=== PATIENT | female | born 1935 | race Caucasian/White ===

== ENCOUNTER → 2018-06-04 08:04 | Outpatient (CLI) | payer MEDICARE, OTHER, SELFPAY ==
[2018-06-04 10:36] LABS: BUN Creatinine Ratio 12.5 (6-22); Blood Urea Nitrogen 10 mg/dL (7-17); Calcium 9.7 mg/dL (8.4-10.2); Carbon Dioxide 28 mmol/L (22-32); Chloride 103 mmol/L (98-107); Cholesterol 156 mg/dL (140-199); Estimated Glomerular Filt Rate > 60.0 mL/min (>60); Glucose 115 mg/dL (80-110); HDL Cholesterol 34 mg/dL (40-60); HEMOLYSIS < 15 (0-50); LDL Cholesterol Calculated 72 mg/dL (<100); Potassium 4.3 mmol/L (3.4-5.1); Sodium 143 mmol/L (137-145); Triglycerides 248 mg/dL (35-150)
[2018-06-04 11:59] LABS: Hemoglobin A1C% w Est Avg Glu 6.4 % (4.0-6.0)
== END ==
PROVIDERS: PCP Physician Assistant; Visit Provider Physician Assistant
DX: E11.9 Type 2 diabetes mellitus without complications (principal); E78.1 Pure hyperglyceridemia
CPT/HCPCS: 36415; 80048; 80061; 83036

== ENCOUNTER → 2018-07-03 12:57 | Outpatient (CLI) | payer MEDICARE, OTHER, SELFPAY ==
--- NOTE | 2018-07-03 | DI.MG.S_ITS ---
BILATERAL DIGITAL SCREENING MAMMOGRAM 3D/2D WITH CAD POST LUMPECTOMY: 07/03/2018 CLINICAL: Routine screening. Personal history of left breast cancer. Comparison is made to exams dated: 06/26/2017 mammogram, 06/06/2016 mammogram - [facility], and 04/14/2015 mammogram - [facility]. There are scattered fibroglandular elements in both breasts. Current study was also evaluated with a Computer Aided Detection (CAD) system. There are post operative findings in the right breast. No significant masses, calcifications, or other findings are seen in either breast. There has been no significant interval change. IMPRESSION: NEGATIVE There is no mammographic evidence of malignancy. A 1 year screening mammogram is recommended. This exam was interpreted at Station ID: [id number]. NOTE: For mammograms, a report in lay terms will be sent to the patient. Approximately 15% of breast malignancies will not be visualized mammographically. In the management of a palpable breast mass, a negative mammogram must not discourage biopsy of a clinically suspicious lesion. Electronically Signed By: Estefani fischer/sheree:07/03/2018 16:01:22 letter sent: Normal Exam ACR BI-RADS Category 1: Negative [id number]
== END ==
PROVIDERS: PCP Physician Assistant; Visit Provider Physician Assistant
DX: Z12.31 Encounter for screening mammogram for malignant neoplasm of breast (principal); Z85.3 Personal history of malignant neoplasm of breast
CPT/HCPCS: 77063; 77067

== ENCOUNTER → 2018-07-11 08:26 | Outpatient (CLI) | payer MEDICARE, OTHER, SELFPAY ==
--- NOTE | 2018-07-11 | DI.US.S_ITS ---
PROCEDURE: US CHEST COMPARISON: None. INDICATIONS: LOCALIZED SWELLING UNDER RIBCAGE FINDINGS: No mass or abnormal fluid collection seen, no evidence of herniation in the area of current clinical concern. IMPRESSION: Normal chest ultrasound. Source of reported lump not identified. Dictated by: José Bui M.D. on 07/11/2018 at 11:11 Approved by: José Bui M.D. on 07/11/2018 at 11:12
== END ==
PROVIDERS: Family Provider Physician Assistant; PCP Physician Assistant; Visit Provider Physician Assistant
DX: R22.2 Localized swelling, mass and lump, trunk (principal)
CPT/HCPCS: 76604

== ENCOUNTER → 2018-09-05 10:37 | Outpatient (CLI) | payer MEDICARE, OTHER, SELFPAY ==
[2018-09-05 11:03] LABS: Add Manual Diff / Slide Review NO; Basophils Percent Auto 1.1 % (0-2); Eosinophils Percent Auto 4.7 % (2-4); Hematocrit 39.4 % (36-46); Hemoglobin 13.3 g/dL (12.0-16.0); Lymphocytes Percent Auto 25.8 % (25-40); Mean Corpuscular HGB Conc 33.7 % (30-36); Mean Corpuscular Hemoglobin 29.3 PG (26-34); Mean Corpuscular Volume 87.1 fL (80-100); Monocytes Percent Auto 6.8 % (3-14); Neutrophils Absolute Auto 4200 /uL (3000-5900); Neutrophils Percent Auto 61.6 % (50-75); Platelet Count 237 X10^3/uL (150-400); Red Blood Cell Count 4.53 X10^6/uL (4.0-5.2); Red Cell Distribution Width 13.9 % (11.6-14.8); White Blood Cell Count 6.8 X10^3/uL (4.5-11.0)
[2018-09-05 11:11] LABS: Alanine Aminotransferase 20 IU/L (9-52); Albumin Globulin Ratio 1.4 (1.0-2.8); Alkaline Phosphatase 62 U/L (38-126); Aspartate Aminotransferase 20 IU/L (14-36); BUN Creatinine Ratio 16.3 (6-22); Bilirubin Total 0.9 mg/dL (0.2-1.3); Blood Urea Nitrogen 13 mg/dL (7-17); Calcium 9.4 mg/dL (8.4-10.2); Carbon Dioxide 28 mmol/L (22-32); Chloride 105 mmol/L (98-107); Estimated Glomerular Filt Rate > 60.0 mL/min (>60); Globulin 2.9 g/dL (1.7-4.1); Glucose 155 mg/dL (80-110); HEMOLYSIS < 15 (0-50); Potassium 3.8 mmol/L (3.4-5.1); Sodium 142 mmol/L (137-145); Total Protein 6.9 g/dL (6.3-8.2)
[2018-09-11 11:50] VITALS: BP 140/82; PULSE 89; RESP 18; TEMP 36.3; O2SAT 96
== END ==
PROVIDERS: Family Provider Physician Assistant; PCP Physician Assistant; Visit Provider Nurse Practitioner Gerontology
DX: C50.919 Malignant neoplasm of unspecified site of unspecified female breast (principal)
CPT/HCPCS: 36415; 80053; 85025

== ENCOUNTER 2018-09-11 11:09 | Oncology outpatient (ONC) | payer MEDICARE, OTHER, SELFPAY ==
--- NOTE | 2018-09-11 12:40 | P.PNONC_ITS ---
PN -Subjective Interval history: The patient is a 82 year old Female who is being seen in the clinic 09/11/2018 . She carries a diagnosis of left-sided T2 NX breast cancer in clinical remission/surveillance since her original diagnosis was made on June 2015. Patient was started on letrozole in March 2016 subsequently held and June 2017 secondary to a 20 pound weight gain. Patient presents today for 6 month clinical evaluation. She did resume letrozole however stopped again in July after 2 months stating I felt miserable I hurt all over. I dont want to go back on it. Otherwise the pt has no new complaints on exam today. She just had a visit with Dr Rascon radiation oncology. No recent illnesses or infections. No new pain, no new lumps or bumps. Appetite is excellent. Weight is stable. PCP has changed her blood pressure medications a couple of times. Patient reports she was having a cough, this went away after her provider changed her blood pressure medicine, she is now taking Losartan 50mg BID with blood pressures running in the 130's-140's. Blood sugars in the upper 100's. Most recent mammogram was July 03, 2018 which was without evidence of malignancy, recommendation is continue with annual bilateral routine screening. Past Medical History The patient's past medical history is significant for: 1. Left-sided invasive breast cancer, Diagnosis: 06/23/2015. Ultrasound core needle biopsy left breast. Pathology confirming an invasive ductal carcinoma. Immunostains showing a [place] histological grade 2 out of 3 without LVI. Immunostains of the invasive component were ER positive at greater than 90%, MT negative at less than 1%, and HER2 equivocal at 2+ but negative on FISH, with a ratio of 1.28 and a copy number of 3.43. Ki67 20%. Associated high-grade DCIS identified. 07/19/2015. Partial mastectomy with sentinel node procedure. Primary lesion measuring 24 x 15 x 10 mm. DCIS measuring 7 mm. Margins otherwise clear for both invasive and DCIS disease after reexcision. One reported sentinel lymph node was identified, but on pathology, no lymphatic tissue was seen. Patient has not had further axillary surgery. Prognosis: 08/30/2015. Oncotype DX assay reporting a 10-year risk of distant recurrence in the node negative setting at 13% after 5 years of tamoxifen. Oncotype ordered through Surgery. Treatment: 09/20/2015-01/11/2016. CMF chemotherapy. 17 weeks administered discontinued after she developed a DVT in the left lower extremity. April 2016. Consolidation radiation therapy. 04/06/2016 - present. Letrozole. 02/29/2016. Baseline echocardiogram reporting an EF of 60-65%. Mild mitral regurgitation. Patient has her annual mammograms in May of each year. Surveillance: 06/26/2017. Bilateral diagnostic mammogram. Postsurgical scar noted in the left breast 3 o'clock posterior depth. No mammographic evidence for malignancy. 06/26/2017. CT abdomen and pelvis. Indication epigastric pain. No evidence of metastatic disease seen. No source of pain as identified. 2. Left lower extremity DVT, while on CMF chemotherapy, involving popliteal vein identified on ultrasound dated January 19, 2016. Patient remains on Rivaroxaban 20 mg daily. 3. Hypothyroidism. Last TSH in February 2016 normal. 4. GERD. 5. Osteopenia. Bone density scan on 02/29/2016 reporting a T score at AP spine of -1.5 left and right neck of the femur -2.1 and -2.0 respectively. 6) Fat necrosis left breast upper inner quadrant measuring 18 x 17 x 20 millimeters characterized on ultrasound dated 06/06/2016. Recent ultrasound dated 12/25/2016 reporting fat necrosis measuring 14 x 17 x 17 mm. Home Medications and Allergies Home Medications Medication Instructions Recorded Confirmed Type levothyroxine 50 mcg PO QAM #90 tab 09/17/17 Rx Glucose: Home Monitor / #1 12/09/17 Rx Glucose: Test Strips str TID #100 12/09/17 Rx Lancet: Device u #100 12/09/17 Rx losartan 50 mg PO BID 09/11/18 09/11/18 History omeprazole 40 mg PO/SL BID 09/11/18 History Allergies Allergy/AdvReac Type Severity Reaction Status Date / Time amoxicillin [AMOXICILLIN] Allergy Intermediate RASH Unverified 02/26/18 12:33 ciprofloxacin [CIPROFLOXACIN] Allergy Intermediate RASH Unverified 02/26/18 12: 33 codeine [CODEINE] Allergy Intermediate RASH Unverified 02/26/18 12:33 vancomycin [VANCOMYCIN] Allergy Intermediate RASH Unverified 02/26/18 12:33 Exam - Constitutional positive no acute distress - Routine HEENT Exam Eye: Present: conjunctivae pink. Absent: conjunctival icterus, scleral injection ENT: Present: mucous membranes moist, oropharynx clear - Routine Neck Exam Present: supple. Absent: lymphadenopathy - Routine Chest/Breast/Axilla Exam Chest wall exam standard: Absent: tenderness, mass Breast: Absent: tenderness, mass, erythema Axillae: Absent: lymphadenopathy, mass, tenderness - Routine Respiratory Exam Present: Clear to auscultation bilaterally. Absent: rales, rhonchi, wheezes - Routine Cardiovascular Exam Present: RRR, S1, S2. Absent: murmur, gallop, rubs, JVD - Routine Abdominal Exam Present: soft, normoactive bowel sounds. Absent: tenderness, distended, organomegaly, mass - Routine Extremities Exam Absent: edema, calf tenderness - Routine Skin Exam Present: intact, normal turgor. Absent: petechiae, rash - Routine Neurological Exam Present: alert, oriented X3 - Routine Psychiatric Exam Present: normal affect Results - Imaging Additional studies: Procedures Excision of axillary lymph node (07/19/15) Subtotal mastectomy (07/19/15) Assessment and Plan (1) Breast cancer Current visit: No Status: Ching Cordova is a pleasant 82-year-old female with a diagnosis of left-sided T2 NX breast cancer in clinical remission/surveillance since original diagnosis was made June 2015. She began letrozole March 2016 held briefly in June 2017 due to weight gain. Held approximately 2 months. Was back on letrozole however elected to discontinue again in July of 2018 reporting once again worsening arthralgia. She understands there is a relative risk reduction in recurrence possibly reduced from 26% to 13% with continued letrozole use. Patient states at this point she has no desire to resume. No signs or symptoms of disease recurrence on exam today. CBC, CMP unremarkable. She will be due to have her routine annual screening bilateral mammogram in June of 2019. (2) Hypertension Current visit: Yes Status: Acute Stable , now taking losartan 50mg BID, managed by PCP Ledy Coreas PA-C (3) Type 2 diabetes mellitus Current visit: Yes Status: Acute stable with blood sugars below 200. Most recent Hgb A1C May 2018 6.4. Not on meds, diet controlled
== END 2018-09-25 13:20 ==
PROVIDERS: Family Provider Physician Assistant; PCP Physician Assistant; Visit Provider Nurse Practitioner Gerontology
DX: C50.912 Malignant neoplasm of unspecified site of left female breast (principal); Z17.0 Estrogen receptor positive status [ER+]; I10 Essential (primary) hypertension; Z86.718 Personal history of other venous thrombosis and embolism; E11.9 Type 2 diabetes mellitus without complications; M85.852 Other specified disorders of bone density and structure, left thigh; M85.851 Other specified disorders of bone density and structure, right thigh; Z79.01 Long term (current) use of anticoagulants
CPT/HCPCS: 99214

== ENCOUNTER 2018-10-23 10:30 | Outpatient (RCR) | payer MEDICARE, OTHER, SELFPAY ==
--- NOTE | 2018-10-01 16:02 | PT.OIE ---
Current Diagnoses Bilateral primary osteoarthritis of hip (09/29/18) Trochanteric bursitis, left hip (09/29/18) Presence of left artificial knee joint (09/29/18) Past Surgical History Status post hysterectomy Status post laparoscopic cholecystectomy Provider Visit Care Team Role Provider Type Ledy Coreas PA-C Family Provider Advanced Dry Kiln Worker Primary Care Provider Specialty: Internal Medicine Address: [address] [place] [address], [address] Email: Marcelina Jones MD Attending Provider Physician Specialty: Orthopedic Surgery Address: [address] [place] [address], [id number] Email: [email or web address] Physical Therapy Initial Evaluation PT-OP-A Visit Information Start: 09/29/18 07:37 Freq: Status: Active Protocol: Document 09/29/18 08:15 AMB (Rec: 10/01/18 15:14 AMB [email or web address]) Out-Patient Physical Therapy Visit Information Visit Information Visit Type Initial Evaluation Visit Start Time 08:15 Visit Stop Time 09:00 Total Visit Minutes 45 Visit Number 1 Evaluation Information Evaluation Date 09/30/18 PT-OP-B Current Condition Start: 09/29/18 07:37 Freq: Status: Active Protocol: Document 09/29/18 08:15 AMB (Rec: 10/01/18 15:14 AMB [email or web address]) Current Condition History of Current Condition Onset Date late August Current Complaints L hip pain History of Current Condition The patient woke up 2 weeks ago with left hip pain. She states it has been about the same since that time. It comes and goes. Worse with standing and walking but the low back also hurts with that. She also notes pain getting into the car. 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 She has continued swelling in her leg since then despite compression socks, very swollen early in the morning. 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 PT-OP-C Subjective Start: 09/29/18 07:37 Freq: Status: Active Protocol: Document 09/29/18 08:15 AMB (Rec: 10/01/18 15:14 AMB [email or web address]) Patient Questionnaires Lower Extremity Functional Scale LEFS Score 47 LEFS Impairment 20 to 39% Impaired (Score 48- 62) OP-PT Pain Assessment Pain Assessment Grid Paper Pain Assessment Grid Completed Yes Location Left Hip Pain Location Details lateral hip over greater trochanter Intensity 6 Scale Used Numeric (1 - 10) PT-OP-F Manual Assessment Start: 09/29/18 07:37 Freq: Status: Active Protocol: Document 09/29/18 08:15 AMB (Rec: 10/01/18 15:54 AMB [email or web address]) Manual Assessments Soft Tissue Assessment Soft Tissue Mobility Assessment Tendnerness over IT band on the left, mild tenderness to piriformis. Tendnerness over low back, stiffness with lumbar PAs. PT-OP-G Mobility & Gait Start: 09/29/18 07:37 Freq: Status: Active Protocol: Document 09/29/18 08:15 AMB (Rec: 10/01/18 15:52 AMB [email or web address]) OP Gait Assessment Comments Gait Comments Pt ambulates with WBOS and mild hip external rotation, limited trunk rotation PT-OP-J Posture/Palpation/Skin Start: 09/29/18 07:37 Freq: Status: Active Protocol: Document 09/29/18 08:15 AMB (Rec: 10/01/18 15:52 AMB [email or web address]) Posture Evaluation Comments Posture Comments Pt stands with flat lumbar spine, sits with increased thoracic kyphosis Palpation Assessment Location One Palpation Location hip Palpation Details L lateral hip over greater trochanter has increased tenderness in comparison to the right. IT band is tender L>R. Mild piriformis tenderness bilaterally. PT-OP-M Strength Start: 09/29/18 07:37 Freq: Status: Active Protocol: Document 09/29/18 08:15 AMB (Rec: 10/01/18 15:52 AMB [email or web address]) Hip Strength Hip Manual Muscle Testing Right Flexion (L2) 4 Good Extension (S1) 4 Good Abduction 4 Good Adduction 4 Good Left Flexion (L2) 4- Good- Extension (S1) 4 Good Abduction 4- Good- Adduction 4- Good- Knee Strength Knee Manual Muscle Testing Right Flexion (S2) 4 Good Extension (L3) 4 Good Left Flexion (S2) 4+ Good+ Extension (L3) 4+ Good+ PT-OP-R Modalities Start: 09/29/18 07:37 Freq: Status: Active Protocol: Document 09/29/18 08:15 AMB (Rec: 10/01/18 15:53 AMB [email or web address]) Electric Stimulation Electric Stimulation Interferential Current (IFC) Body Location L hip Duration (Minutes) 10 PT-OP-T Assessment and Plan Start: 09/29/18 07:37 Freq: Status: Active Protocol: Document 09/29/18 08:15 AMB (Rec: 10/01/18 15:52 AMB [email or web address]) Physical Therapy Assessment Rehab Potential Rehabilitation Potential Good Evaluation Complexity Number of Personal Factors/Comorbidities 3 or More Number of Body Systems Impaired 3 Clinical Presentation at Evaluation Evolving Impairments Impairments Gait Pain Soft Tissue Mobility Strength Goals Three Impairment Pain Mine Geologist Goal (LTG) The patient will perform a car transfer without pain. LTG Duration 8 weeks Two Impairment Gait Short Term Goal (STG) The patient will ambulate for 5 minutes over smooth surfaces without LOB or antalgic gait pattern. STG Duration 4 weeks Mcc Goal (LTG) The patient will ascend and descend 4 stairs with 1 railing with step over step gait without hip pain. LTG Duration 8 weeks One Impairment Strength Short Term Goal (STG) The patient will be independent with a HEP for lower extremity and core strengthening. STG Duration 4 weeks Mine Geologist Goal (LTG) The patient will improve her lower extremity strength so that she can perform a mini squat with good body mechanics to take foot out of the oven without hip pain. LTG Duration 8 weeks Assessment Summary Assessment The patient attends PT with recent onset L hip pain with chronic knee pain s/p TKA that has been making her compensate. She will need to progress her hip and core stabilization. She will benefit from body mechanics training to reduce the amount of compensation she has developed from her knee pain. Physical Therapy Plan Frequency and Duration Frequency of Treatment 2x/Week Duration of Treatment 8 weeks Plan of Care Start Date 09/30/18 Plan of Care End Date 11/25/18 Therapeutic Interventions Therapeutic Interventions Aquatic Therapy Gait Training Home Exercise Program Manual Therapy Neuromuscular Re-education Self-Care/Home Management Soft Tissue Mobilization Therapeutic Activities Therapeutic Exercises Modalities Cold Pack/Ice Massage Electric Stimulation Hot Packs Ultrasound Next Visit Focus/Plan Next Note Type Treatment Note Next Visit Plan Progress core/ hip stabilization, body mechanics training
--- NOTE | 2018-10-01 16:03 | PT.OPPOC ---
Current Diagnoses Bilateral primary osteoarthritis of hip (09/29/18) Trochanteric bursitis, left hip (09/29/18) Presence of left artificial knee joint (09/29/18) Provider Visit Care Team Role Provider Type Ledy Coreas PA-C Family Provider Advanced Personal Clothing Laundry Aide Primary Care Provider Specialty: Internal Medicine Address: [address] [place] [address], [address] Email: Marcelina Jones MD Attending Provider Physician Specialty: Orthopedic Surgery Address: [address] [place] [address], [address] Email: [email or web address] Plan Of Care PT-OP-T Assessment and Plan Start: 09/29/18 07:37 Freq: Status: Active Protocol: Document 09/29/18 08:15 AMB (Rec: 10/01/18 15:52 AMB [email or web address]) Physical Therapy Assessment Rehab Potential Rehabilitation Potential Good Evaluation Complexity Number of Personal Factors/Comorbidities 3 or More Number of Body Systems Impaired 3 Clinical Presentation at Evaluation Evolving Impairments Impairments Gait Pain Soft Tissue Mobility Strength Goals Three Impairment Pain Jail Goal (LTG) The patient will perform a car transfer without pain. LTG Duration 8 weeks Two Impairment Gait Short Term Goal (STG) The patient will ambulate for 5 minutes over smooth surfaces without LOB or antalgic gait pattern. STG Duration 4 weeks Candle Molder Goal (LTG) The patient will ascend and descend 4 stairs with 1 railing with step over step gait without hip pain. LTG Duration 8 weeks One Impairment Strength Short Term Goal (STG) The patient will be independent with a HEP for lower extremity and core strengthening. STG Duration 4 weeks Jail Goal (LTG) The patient will improve her lower extremity strength so that she can perform a mini squat with good body mechanics to take foot out of the oven without hip pain. LTG Duration 8 weeks Assessment Summary Assessment The patient attends PT with recent onset L hip pain with chronic knee pain s/p TKA that has been making her compensate. She will need to progress her hip and core stabilization. She will benefit from body mechanics training to reduce the amount of compensation she has developed from her knee pain. Physical Therapy Plan Frequency and Duration Frequency of Treatment 2x/Week Duration of Treatment 8 weeks Plan of Care Start Date 09/30/18 Plan of Care End Date 11/25/18 Therapeutic Interventions Therapeutic Interventions Aquatic Therapy Gait Training Home Exercise Program Manual Therapy Neuromuscular Re-education Self-Care/Home Management Soft Tissue Mobilization Therapeutic Activities Therapeutic Exercises Modalities Cold Pack/Ice Massage Electric Stimulation Hot Packs Ultrasound Next Visit Focus/Plan Next Note Type Treatment Note Next Visit Plan Progress core/ hip stabilization, body mechanics training Plan of Care Dates Plan of Care Start Date 09/30/18 Plan of Care End Date 11/25/18 Please Sign and Return: I have reviewed this Plan of Care and certify that the skilled therapy services above are required to meet the patient?s needs. Physician Signature Date Printed Name and Credentials Clinical Instructor Signature Printed Name and Credentials
--- NOTE | 2018-10-02 09:11 | PT.OTN ---
Current Diagnoses Bilateral primary osteoarthritis of hip (10/02/18) Trochanteric bursitis, left hip (10/02/18) Presence of left artificial knee joint (10/02/18) Physical Therapy Treatment Note PT-OP-A Visit Information Start: 09/29/18 07:37 Freq: Status: Active Protocol: Document 10/02/18 08:15 AMB (Rec: 10/02/18 08:22 AMB [id number]) Out-Patient Physical Therapy Visit Information Visit Information Visit Type Treatment Note Visit Start Time 08:15 Visit Stop Time 09:00 Total Visit Minutes 45 Visit Number 2 Evaluation Information Evaluation Date 09/30/18 PT-OP-B Current Condition Start: 09/29/18 07:37 Freq: Status: Active Protocol: Document 09/29/18 08:15 AMB (Rec: 10/01/18 15:14 AMB [email or web address]) Current Condition History of Current Condition Onset Date late August Current Complaints L hip pain History of Current Condition The patient woke up 2 weeks ago with left hip pain. She states it has been about the same since that time. It comes and goes. Worse with standing and walking but the low back also hurts with that. She also notes pain getting into the car. 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 She has continued swelling in her leg since then despite compression socks, very swollen early in the morning. 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 PT-OP-C Subjective Start: 09/29/18 07:37 Freq: Status: Active Protocol: Document 10/02/18 08:15 AMB (Rec: 10/02/18 08:22 AMB [id number]) OP-PT Subjective Patient Comments Patient Comments Pt reports lifting a case of water bottles into her car yesterday and that it made her back sore. PT-OP-F Manual Assessment Start: 09/29/18 07:37 Freq: Status: Active Protocol: Document 09/29/18 08:15 AMB (Rec: 10/01/18 15:54 AMB [email or web address]) Manual Assessments Soft Tissue Assessment Soft Tissue Mobility Assessment Tendnerness over IT band on the left, mild tenderness to piriformis. Tendnerness over low back, stiffness with lumbar PAs. PT-OP-G Mobility & Gait Start: 09/29/18 07:37 Freq: Status: Active Protocol: Document 09/29/18 08:15 AMB (Rec: 10/01/18 15:52 AMB [email or web address]) OP Gait Assessment Comments Gait Comments Pt ambulates with WBOS and mild hip external rotation, limited trunk rotation PT-OP-J Posture/Palpation/Skin Start: 09/29/18 07:37 Freq: Status: Active Protocol: Document 09/29/18 08:15 AMB (Rec: 10/01/18 15:52 AMB [email or web address]) Posture Evaluation Comments Posture Comments Pt stands with flat lumbar spine, sits with increased thoracic kyphosis Palpation Assessment Location One Palpation Location hip Palpation Details L lateral hip over greater trochanter has increased tenderness in comparison to the right. IT band is tender L>R. Mild piriformis tenderness bilaterally. PT-OP-M Strength Start: 09/29/18 07:37 Freq: Status: Active Protocol: Document 09/29/18 08:15 AMB (Rec: 10/01/18 15:52 AMB [email or web address]) Hip Strength Hip Manual Muscle Testing Right Flexion (L2) 4 Good Extension (S1) 4 Good Abduction 4 Good Adduction 4 Good Left Flexion (L2) 4- Good- Extension (S1) 4 Good Abduction 4- Good- Adduction 4- Good- Knee Strength Knee Manual Muscle Testing Right Flexion (S2) 4 Good Extension (L3) 4 Good Left Flexion (S2) 4+ Good+ Extension (L3) 4+ Good+ PT-OP-Q Treatments Start: 09/29/18 07:37 Freq: Status: Active Protocol: Document 10/02/18 08:15 AMB (Rec: 10/02/18 08:23 AMB [id number]) Cardio Equipment Recumbent Elliptical (Biodex) Duration (Minutes) 5 Resistance 4 Gym Equipment Shuttle Recovery Bilateral Squats Resistance 50 Shuttle Recovery Platform Stable Reps/Time 3x10 Therapeutic Exercises Supine Exercises 3 Supine Exercise Name hamstring stretch Reps/Minutes 30x2 2 Supine Exercise Name IT band stretch Reps/Minutes 30x2 1 Supine Exercise Name Bridges Reps/Minutes 2x10 Sidelying Exercises 2 Sidelying Exercise Name clamshell Side left Reps/Minutes 2x10 1 Sidelying Exercise Name hip abduction Side left Reps/Minutes 2x5 Comments vc for form Manual Therapy Treatment Soft Tissue Mobilization 1 Body Location Left lateral leg Mobilization Type Myofascial Release Rolling Body Position Sidelying PT-OP-R Modalities Start: 09/29/18 07:37 Freq: Status: Active Protocol: Document 09/29/18 08:15 AMB (Rec: 10/01/18 15:53 AMB [email or web address]) Electric Stimulation Electric Stimulation Interferential Current (IFC) Body Location L hip Duration (Minutes) 10 PT-OP-T Assessment and Plan Start: 09/29/18 07:37 Freq: Status: Active Protocol: Document 10/02/18 08:15 AMB (Rec: 10/02/18 09:11 AMB [id number]) Physical Therapy Assessment Assessment Summary Assessment Pt tolerated exercise well, although low back will likely continue to limit her. Physical Therapy Plan Next Visit Focus/Plan Next Note Type Treatment Note Next Visit Plan Progress core stabilization
--- NOTE | 2018-10-06 10:26 | PT.OTN ---
Current Diagnoses Bilateral primary osteoarthritis of hip (10/06/18) Trochanteric bursitis, left hip (10/06/18) Presence of left artificial knee joint (10/06/18) Physical Therapy Treatment Note PT-OP-A Visit Information Start: 09/29/18 07:37 Freq: Status: Active Protocol: Document 10/06/18 08:15 AMB (Rec: 10/06/18 08:22 AMB [id number]) Out-Patient Physical Therapy Visit Information Visit Information Visit Type Treatment Note Visit Start Time 08:15 Visit Stop Time 09:00 Total Visit Minutes 45 Visit Number 3 Evaluation Information Evaluation Date 09/30/18 PT-OP-B Current Condition Start: 09/29/18 07:37 Freq: Status: Active Protocol: Document 09/29/18 08:15 AMB (Rec: 10/01/18 15:14 AMB [email or web address]) Current Condition History of Current Condition Onset Date late August Current Complaints L hip pain History of Current Condition The patient woke up 2 weeks ago with left hip pain. She states it has been about the same since that time. It comes and goes. Worse with standing and walking but the low back also hurts with that. She also notes pain getting into the car. 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 She has continued swelling in her leg since then despite compression socks, very swollen early in the morning. 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 PT-OP-C Subjective Start: 09/29/18 07:37 Freq: Status: Active Protocol: Document 10/06/18 08:15 AMB (Rec: 10/06/18 08:22 AMB [id number]) OP-PT Subjective Patient Comments Patient Comments Pt is noticing both back and leg soreness today, notices that the pain seems to be there all the time. PT-OP-F Manual Assessment Start: 09/29/18 07:37 Freq: Status: Active Protocol: Document 09/29/18 08:15 AMB (Rec: 11/14/18 15:54 AMB [email or web address]) Manual Assessments Soft Tissue Assessment Soft Tissue Mobility Assessment Tendnerness over IT band on the left, mild tenderness to piriformis. Tendnerness over low back, stiffness with lumbar PAs. PT-OP-G Mobility & Gait Start: 09/29/18 07:37 Freq: Status: Active Protocol: Document 09/29/18 08:15 AMB (Rec: 10/01/18 15:52 AMB [email or web address]) OP Gait Assessment Comments Gait Comments Pt ambulates with WBOS and mild hip external rotation, limited trunk rotation PT-OP-J Posture/Palpation/Skin Start: 09/29/18 07:37 Freq: Status: Active Protocol: Document 09/29/18 08:15 AMB (Rec: 10/01/18 15:52 AMB [email or web address]) Posture Evaluation Comments Posture Comments Pt stands with flat lumbar spine, sits with increased thoracic kyphosis Palpation Assessment Location One Palpation Location hip Palpation Details L lateral hip over greater trochanter has increased tenderness in comparison to the right. IT band is tender L>R. Mild piriformis tenderness bilaterally. PT-OP-M Strength Start: 09/29/18 07:37 Freq: Status: Active Protocol: Document 09/29/18 08:15 AMB (Rec: 10/01/18 15:52 AMB [email or web address]) Hip Strength Hip Manual Muscle Testing Right Flexion (L2) 4 Good Extension (S1) 4 Good Abduction 4 Good Adduction 4 Good Left Flexion (L2) 4- Good- Extension (S1) 4 Good Abduction 4- Good- Adduction 4- Good- Knee Strength Knee Manual Muscle Testing Right Flexion (S2) 4 Good Extension (L3) 4 Good Left Flexion (S2) 4+ Good+ Extension (L3) 4+ Good+ PT-OP-Q Treatments Start: 09/29/18 07:37 Freq: Status: Active Protocol: Document 10/06/18 08:15 AMB (Rec: 10/06/18 08:29 AMB [id number]) Cardio Equipment Recumbent Stepper (Sci-Fit) Duration (Minutes) 5 Resistance 3.5 Gym Equipment Shuttle Recovery Bilateral Squats Resistance 67 Shuttle Recovery Platform Stable Reps/Time 3x10 Therapeutic Exercises Supine Exercises 3 Supine Exercise Name hamstring stretch Reps/Minutes 30x2 1 Supine Exercise Name Bridges Reps/Minutes 2x10 Sidelying Exercises 2 Sidelying Exercise Name clamshell Side left Reps/Minutes 2x10 Manual Therapy Treatment Soft Tissue Mobilization 1 Body Location Left lateral leg/ low back Mobilization Type Myofascial Release Rolling Body Position Sidelying PT-OP-R Modalities Start: 09/29/18 07:37 Freq: Status: Active Protocol: Document 09/29/18 08:15 AMB (Rec: 10/01/18 15:53 AMB [email or web address]) Electric Stimulation Electric Stimulation Interferential Current (IFC) Body Location L hip Duration (Minutes) 10 PT-OP-T Assessment and Plan Start: 09/29/18 07:37 Freq: Status: Active Protocol: Document 10/06/18 08:52 AMB (Rec: 10/06/18 08:55 AMB [id number]) Physical Therapy Assessment Assessment Summary Assessment Continued low back pain, stiffness in knee also limits HEP. Physical Therapy Plan Next Visit Focus/Plan Next Note Type Treatment Note Next Visit Plan Progress core stabilization
--- NOTE | 2018-10-20 15:58 | PT.OTN ---
Current Diagnoses Bilateral primary osteoarthritis of hip (10/20/18) Trochanteric bursitis, left hip (10/20/18) Presence of left artificial knee joint (10/20/18) Physical Therapy Treatment Note PT-OP-A Visit Information Start: 09/29/18 07:37 Freq: Status: Active Protocol: Document 10/20/18 10:30 AMB (Rec: 10/20/18 10:37 AMB [id number]) Out-Patient Physical Therapy Visit Information Visit Information Visit Type Treatment Note Visit Start Time 10:30 Visit Stop Time 11:15 Total Visit Minutes 45 Visit Number 4 Evaluation Information Evaluation Date 09/30/18 PT-OP-B Current Condition Start: 09/29/18 07:37 Freq: Status: Active Protocol: Document 09/29/18 08:15 AMB (Rec: 10/01/18 15:14 AMB [email or web address]) Current Condition History of Current Condition Onset Date late August Current Complaints L hip pain History of Current Condition The patient woke up 2 weeks ago with left hip pain. She states it has been about the same since that time. It comes and goes. Worse with standing and walking but the low back also hurts with that. She also notes pain getting into the car. 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 She has continued swelling in her leg since then despite compression socks, very swollen early in the morning. 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 PT-OP-C Subjective Start: 09/29/18 07:37 Freq: Status: Active Protocol: Document 10/20/18 10:30 AMB (Rec: 10/20/18 10:37 AMB [id number]) OP-PT Subjective Patient Comments Patient Comments Pt reports increased soreness after last appointment. REports supine exercises make her hip sore when she tries them at home. PT-OP-F Manual Assessment Start: 09/29/18 07:37 Freq: Status: Active Protocol: Document 09/29/18 08:15 AMB (Rec: 10/01/18 15:54 AMB [email or web address]) Manual Assessments Soft Tissue Assessment Soft Tissue Mobility Assessment Tendnerness over IT band on the left, mild tenderness to piriformis. Tendnerness over low back, stiffness with lumbar PAs. PT-OP-G Mobility & Gait Start: 09/29/18 07:37 Freq: Status: Active Protocol: Document 09/29/18 08:15 AMB (Rec: 10/01/18 15:52 AMB [email or web address]) OP Gait Assessment Comments Gait Comments Pt ambulates with WBOS and mild hip external rotation, limited trunk rotation PT-OP-J Posture/Palpation/Skin Start: 09/29/18 07:37 Freq: Status: Active Protocol: Document 09/29/18 08:15 AMB (Rec: 10/01/18 15:52 AMB [email or web address]) Posture Evaluation Comments Posture Comments Pt stands with flat lumbar spine, sits with increased thoracic kyphosis Palpation Assessment Location One Palpation Location hip Palpation Details L lateral hip over greater trochanter has increased tenderness in comparison to the right. IT band is tender L>R. Mild piriformis tenderness bilaterally. PT-OP-M Strength Start: 09/29/18 07:37 Freq: Status: Active Protocol: Document 09/29/18 08:15 AMB (Rec: 10/01/18 15:52 AMB [email or web address]) Hip Strength Hip Manual Muscle Testing Right Flexion (L2) 4 Good Extension (S1) 4 Good Abduction 4 Good Adduction 4 Good Left Flexion (L2) 4- Good- Extension (S1) 4 Good Abduction 4- Good- Adduction 4- Good- Knee Strength Knee Manual Muscle Testing Right Flexion (S2) 4 Good Extension (L3) 4 Good Left Flexion (S2) 4+ Good+ Extension (L3) 4+ Good+ PT-OP-Q Treatments Start: 09/29/18 07:37 Freq: Status: Active Protocol: Document 10/20/18 10:30 AMB (Rec: 10/20/18 15:58 AMB [email or web address]) Cardio Equipment Recumbent Elliptical (Biodfishfishme) Duration (Minutes) 5 Resistance 4 Therapeutic Exercises Standing Exercises 4 Standing Exercise Name heel raise Reps/Minutes 2x10 Comments double leg 3 Standing Exercise Name mini squat Reps/Minutes 2x10 2 Standing Exercise Name mini lunge Reps/Minutes 2x10 1 Standing Exercise Name standing hip abd Resistance yellow t band Reps/Minutes 3x10 PT-OP-R Modalities Start: 09/29/18 07:37 Freq: Status: Active Protocol: Document 09/29/18 08:15 AMB (Rec: 10/01/18 15:53 AMB [email or web address]) Electric Stimulation Electric Stimulation Interferential Current (IFC) Body Location L hip Duration (Minutes) 10 PT-OP-T Assessment and Plan Start: 09/29/18 07:37 Freq: Status: Active Protocol: Document 10/20/18 10:30 AMB (Rec: 10/20/18 15:58 AMB [email or web address]) Physical Therapy Assessment Goals Three Impairment Pain Snf Goal (LTG) The patient will perform a car transfer without pain. LTG Duration 8 weeks Two Impairment Gait Short Term Goal (STG) The patient will ambulate for 5 minutes over smooth surfaces without LOB or antalgic gait pattern. STG Duration 4 weeks Snf Goal (LTG) The patient will ascend and descend 4 stairs with 1 railing with step over step gait without hip pain. LTG Duration 8 weeks One Impairment Strength Short Term Goal (STG) The patient will be independent with a HEP for lower extremity and core strengthening. STG Duration 4 weeks Snf Goal (LTG) The patient will improve her lower extremity strength so that she can perform a mini squat with good body mechanics to take foot out of the oven without hip pain. LTG Duration 8 weeks Assessment Summary Assessment better back and hip pain today . Tolerates standing better than supine exercises. Physical Therapy Plan Next Visit Focus/Plan Next Note Type Treatment Note Next Visit Plan Progress core stabilization in standing
--- NOTE | 2018-10-23 11:43 | PT.OTN ---
Current Diagnoses Bilateral primary osteoarthritis of hip (10/23/18) Trochanteric bursitis, left hip (10/23/18) Presence of left artificial knee joint (10/23/18) Physical Therapy Treatment Note PT-OP-A Visit Information Start: 09/29/18 07:37 Freq: Status: Active Protocol: Document 10/23/18 10:30 AMB (Rec: 10/23/18 11:41 AMB [email or web address]) Out-Patient Physical Therapy Visit Information Visit Information Visit Type Discharge Summary Visit Start Time 10:30 Visit Stop Time 11:15 Total Visit Minutes 45 Visit Number 5 Evaluation Information Evaluation Date 09/30/18 PT-OP-B Current Condition Start: 09/29/18 07:37 Freq: Status: Active Protocol: Document 09/29/18 08:15 AMB (Rec: 10/01/18 15:14 AMB [email or web address]) Current Condition History of Current Condition Onset Date late August Current Complaints L hip pain History of Current Condition The patient woke up 2 weeks ago with left hip pain. She states it has been about the same since that time. It comes and goes. Worse with standing and walking but the low back also hurts with that. She also notes pain getting into the car. 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 She has continued swelling in her leg since then despite compression socks, very swollen early in the morning. 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 PT-OP-C Subjective Start: 09/29/18 07:37 Freq: Status: Active Protocol: Document 10/23/18 10:30 AMB (Rec: 10/23/18 11:41 AMB [email or web address]) OP-PT Subjective Patient Comments Patient Comments Pt reports no increase in soreness after standing exercises at last visit. Hip pain is still gone. Back pain can come and go depending on activity. PT-OP-F Manual Assessment Start: 09/29/18 07:37 Freq: Status: Active Protocol: Document 09/29/18 08:15 AMB (Rec: 10/01/18 15:54 AMB [email or web address]) Manual Assessments Soft Tissue Assessment Soft Tissue Mobility Assessment Tendnerness over IT band on the left, mild tenderness to piriformis. Tendnerness over low back, stiffness with lumbar PAs. PT-OP-G Mobility & Gait Start: 09/29/18 07:37 Freq: Status: Active Protocol: Document 09/29/18 08:15 AMB (Rec: 10/01/18 15:52 AMB [email or web address]) OP Gait Assessment Comments Gait Comments Pt ambulates with WBOS and mild hip external rotation, limited trunk rotation PT-OP-J Posture/Palpation/Skin Start: 09/29/18 07:37 Freq: Status: Active Protocol: Document 09/29/18 08:15 AMB (Rec: 10/01/18 15:52 AMB [email or web address]) Posture Evaluation Comments Posture Comments Pt stands with flat lumbar spine, sits with increased thoracic kyphosis Palpation Assessment Location One Palpation Location hip Palpation Details L lateral hip over greater trochanter has increased tenderness in comparison to the right. IT band is tender L>R. Mild piriformis tenderness bilaterally. PT-OP-M Strength Start: 09/29/18 07:37 Freq: Status: Active Protocol: Document 09/29/18 08:15 AMB (Rec: 10/01/18 15:52 AMB [email or web address]) Hip Strength Hip Manual Muscle Testing Right Flexion (L2) 4 Good Extension (S1) 4 Good Abduction 4 Good Adduction 4 Good Left Flexion (L2) 4- Good- Extension (S1) 4 Good Abduction 4- Good- Adduction 4- Good- Knee Strength Knee Manual Muscle Testing Right Flexion (S2) 4 Good Extension (L3) 4 Good Left Flexion (S2) 4+ Good+ Extension (L3) 4+ Good+ PT-OP-Q Treatments Start: 09/29/18 07:37 Freq: Status: Active Protocol: Document 10/23/18 10:30 AMB (Rec: 10/23/18 11:41 AMB [email or web address]) Cardio Equipment Recumbent Elliptical (Biodex) Duration (Minutes) 5 Resistance 4 Therapeutic Exercises Sitting Exercises 1 Sitting Exercise Name sit to stand Reps/Minutes 10 Standing Exercises 4 Standing Exercise Name heel raise Reps/Minutes 2x10 Comments double leg 3 Standing Exercise Name mini squat Reps/Minutes 2x10 2 Standing Exercise Name mini lunge Reps/Minutes 2x10 1 Standing Exercise Name standing hip abd Resistance yellow t band Reps/Minutes 3x10 PT-OP-R Modalities Start: 09/29/18 07:37 Freq: Status: Active Protocol: Document 09/29/18 08:15 AMB (Rec: 10/01/18 15:53 AMB [email or web address]) Electric Stimulation Electric Stimulation Interferential Current (IFC) Body Location L hip Duration (Minutes) 10 PT-OP-T Assessment and Plan Start: 09/29/18 07:37 Freq: Status: Active Protocol: Document 10/23/18 10:30 AMB (Rec: 10/23/18 11:41 AMB [email or web address]) Physical Therapy Assessment Goals Three Impairment Pain Penitentiary Goal (LTG) The patient will perform a car transfer without pain.- knee pain only LTG Duration PARTIALLY MET Two Impairment Gait Short Term Goal (STG) The patient will ambulate for 5 minutes over smooth surfaces without LOB or antalgic gait pattern. STG Duration MET Finisher Brush Goal (LTG) The patient will ascend and descend 4 stairs with 1 railing with step over step gait without hip pain. LTG Duration MET One Impairment Strength Short Term Goal (STG) The patient will be independent with a HEP for lower extremity and core strengthening. STG Duration MET Finisher Brush Goal (LTG) The patient will improve her lower extremity strength so that she can perform a mini squat with good body mechanics to take food out of the oven without hip pain. NO hip pain , but does have back pain. LTG Duration PARTIALLY MET Assessment Summary Assessment The patient continues to have her chronic knee pain, and does have back pain, but reports her hip pain has resolved at this time. Physical Therapy Plan Discharge Physical Therapy Discharge Reasons Goals Met Discharge Comments Pt's hip pain has resolved
== END 2018-11-13 12:34 ==
LOC: PHYS 10:30
PROVIDERS: Family Provider Physician Assistant; PCP Physician Assistant; Visit Provider Orthopaedic Surgery
DX: M70.62 Trochanteric bursitis, left hip (principal); M16.0 Bilateral primary osteoarthritis of hip; Z96.652 Presence of left artificial knee joint
CPT/HCPCS: 97014; 97110; 97140; 97162; G0283

== ENCOUNTER → 2019-01-28 07:41 | Outpatient (CLI) | payer MEDICARE, OTHER, SELFPAY ==
[2019-01-28 08:59] LABS: Add Manual Diff / Slide Review NO; Basophils Absolute Auto 100 /uL (0-100); Eosinophils Absolute Auto 500 /uL (0-450); Eosinophils Percent Auto 6.7 % (2-4); Hematocrit 40.1 % (36-46); Hemoglobin 13.4 g/dL (12.0-16.0); Lymphocytes Absolute Auto 1800 /uL (1100-4500); Lymphocytes Percent Auto 26.4 % (25-40); Mean Corpuscular HGB Conc 33.4 % (30-36); Mean Corpuscular Hemoglobin 28.9 PG (26-34); Mean Corpuscular Volume 86.4 fL (80-100); Monocytes Absolute Auto 600 /uL (0-900); Neutrophils Absolute Auto 3900 /uL (1500-7000); Neutrophils Percent Auto 56.9 % (50-75); Platelet Count 248 X10^3/uL (150-400); Red Blood Cell Count 4.64 X10^6/uL (4.0-5.2); Red Cell Distribution Width 13.6 % (11.6-14.8); White Blood Cell Count 6.9 X10^3/uL (4.5-11.0)
[2019-01-28 09:07] LABS: Hemoglobin A1C% w Est Avg Glu 6.5 % (4.0-6.0)
[2019-01-28 09:41] LABS: Alanine Aminotransferase 29 IU/L (9-52); Albumin Globulin Ratio 1.4 (1.0-2.8); Alkaline Phosphatase 68 U/L (38-126); Aspartate Aminotransferase 21 IU/L (14-36); BUN Creatinine Ratio 13.3 (6-22); Bilirubin Total 0.8 mg/dL (0.2-1.3); Blood Urea Nitrogen 12 mg/dL (7-17); Calcium 9.6 mg/dL (8.4-10.2); Carbon Dioxide 29 mmol/L (22-32); Chloride 103 mmol/L (98-107); Cholesterol 184 mg/dL (140-199); Estimated Glomerular Filt Rate 59.9 mL/min (>60); Globulin 2.9 g/dL (1.7-4.1); Glucose 131 mg/dL (80-110); HDL Cholesterol 39 mg/dL (40-60); HEMOLYSIS < 15 (0-50); LDL Cholesterol Calculated 108 mg/dL (<100); Potassium 4.4 mmol/L (3.4-5.1); Sodium 140 mmol/L (137-145); Total Protein 6.9 g/dL (6.3-8.2); Triglycerides 183 mg/dL (35-150)
== END ==
PROVIDERS: Family Provider Physician Assistant; PCP Physician Assistant; Visit Provider Physician Assistant
DX: E11.9 Type 2 diabetes mellitus without complications (principal); E78.5 Hyperlipidemia, unspecified; I10 Essential (primary) hypertension
CPT/HCPCS: 36415; 80053; 80061; 83036; 85025

== ENCOUNTER → 2019-06-12 12:08 | Outpatient (CLI) | payer MEDICARE, OTHER, SELFPAY ==
--- NOTE | 2019-06-12 | DI.RAD.S_ITS ---
PROCEDURE: XR HIP W PEL IF DONE LT 2V INDICATIONS: PAIN IN LEFT HIP TECHNIQUE: AP pelvis with lateral view(s) of the left hip(s). COMPARISON: None. FINDINGS: Bones: No fractures or dislocations. Pelvic ring appears intact. No suspicious bony lesions. Soft tissues: The visualized bowel gas pattern is normal. No suspicious soft tissue calcifications. IMPRESSION: Normal for age, source of current persistent left hip pain symptoms is not seen. Dictated by: José Bui M.D. on 06/12/2019 at 12:44 Approved by: José Bui M.D. on 06/12/2019 at 12:45
== END ==
PROVIDERS: PCP Physician Assistant; Visit Provider Physician Assistant
DX: M25.552 Pain in left hip (principal)
CPT/HCPCS: 73502

== ENCOUNTER → 2019-07-06 10:31 | Outpatient (CLI) | payer MEDICARE, OTHER, SELFPAY ==
--- NOTE | 2019-07-06 10:32 | DI.MG.S_ITS ---
BILATERAL DIGITAL SCREENING MAMMOGRAM 3D/2D WITH CAD: 07/06/2019 CLINICAL: Routine screening. Personal history of left breast cancer. Comparison is made to exams dated: 07/03/2018 mammogram, 06/26/2017 mammogram, and 06/06/2016 mammogram - [facility]. There are scattered fibroglandular elements in both breasts. Current study was also evaluated with a Computer Aided Detection (CAD) system. There are benign post operative findings in the right breast. There also are benign calcifications in both breasts. No significant masses, calcifications, or other findings are seen in either breast. There has been no significant interval change. IMPRESSION: There is no mammographic evidence of malignancy. A 1 year screening mammogram is recommended. This exam was interpreted at Station ID: [id number]. NOTE: For mammograms, a report in lay terms will be sent to the patient. Approximately 15% of breast malignancies will not be visualized mammographically. In the management of a palpable breast mass, a negative mammogram must not discourage biopsy of a clinically suspicious lesion. Electronically Signed By: Jerrod pike/sheree:07/06/2019 11:48:55 copy to: Ledy Coreas letter sent: Normal Exam ACR BI-RADS Category 2: Benign Finding(s) 3342F
== END ==
PROVIDERS: PCP Physician Assistant; Visit Provider Internal Medicine Hematology & Oncology
DX: Z12.31 Encounter for screening mammogram for malignant neoplasm of breast (principal); Z85.3 Personal history of malignant neoplasm of breast
CPT/HCPCS: 77063; 77067

== ENCOUNTER → 2019-07-23 09:32 | Outpatient (CLI) | payer MEDICARE, OTHER, SELFPAY | PROVIDERS: PCP Physician Assistant; Visit Provider Internal Medicine Hematology & Oncology | DX: M81.0 Age-related osteoporosis without current pathological fracture (principal); Z78.0 Asymptomatic menopausal state; E07.9 Disorder of thyroid, unspecified; Z85.3 Personal history of malignant neoplasm of breast; Z82.62 Family history of osteoporosis | CPT/HCPCS: 77080; 77081 ==

== ENCOUNTER → 2019-08-10 09:43 | Outpatient (CLI) | payer MEDICARE, OTHER, SELFPAY ==
[2019-08-10 10:48] LABS: Add Manual Diff / Slide Review NO; Basophils Absolute Auto 100 /uL (0-100); Basophils Percent Auto 1.3 % (0-2); Eosinophils Absolute Auto 200 /uL (0-450); Eosinophils Percent Auto 3.6 % (2-4); Hematocrit 41.8 % (36-46); Lymphocytes Absolute Auto 1500 /uL (1100-4500); Lymphocytes Percent Auto 21.6 % (25-40); Mean Corpuscular HGB Conc 33.5 % (30-36); Mean Corpuscular Hemoglobin 29.2 PG (26-34); Mean Corpuscular Volume 87.1 fL (80-100); Monocytes Absolute Auto 600 /uL (0-900); Monocytes Percent Auto 9.1 % (3-14); Neutrophils Absolute Auto 4500 /uL (1500-7000); Neutrophils Percent Auto 64.4 % (50-75); Platelet Count 222 X10^3/uL (150-400); Red Cell Distribution Width 13.9 % (11.6-14.8); White Blood Cell Count 6.9 X10^3/uL (4.5-11.0)
[2019-08-10 11:02] LABS: Hemoglobin A1C% w Est Avg Glu 6.6 % (4.0-6.0)
[2019-08-10 11:45] LABS: Alanine Aminotransferase 15 IU/L (9-52); Albumin 3.9 g/dL (3.5-5.0); Albumin Globulin Ratio 1.2 (1.0-2.8); Alkaline Phosphatase 70 U/L (38-126); Aspartate Aminotransferase 20 IU/L (14-36); BUN Creatinine Ratio 13.3 (6-22); Blood Urea Nitrogen 12 mg/dL (7-17); Carbon Dioxide 27 mmol/L (22-32); Chloride 103 mmol/L (98-107); Cholesterol 177 mg/dL (140-199); Estimated Glomerular Filt Rate 59.9 mL/min (>60); Globulin 3.2 g/dL (1.7-4.1); Glucose 148 mg/dL (80-110); HDL Cholesterol 35 mg/dL (40-60); HEMOLYSIS < 15 (0-50); LDL Cholesterol Calculated 103 mg/dL (<100); Potassium 4.1 mmol/L (3.4-5.1); Sodium 138 mmol/L (137-145); Total Protein 7.1 g/dL (6.3-8.2); Triglycerides 194 mg/dL (35-150)
[2019-08-10 11:59] LABS: Vitamin D 25 Hydroxy (D3) 67.4 ng/mL (30.0-100.0)
[2019-08-10 12:14] LABS: Thyroid Stimulating Hormone 2.47 uIU/mL (0.47-4.68)
== END ==
PROVIDERS: PCP Physician Assistant; Visit Provider Physician Assistant
DX: E11.9 Type 2 diabetes mellitus without complications (principal); E03.9 Hypothyroidism, unspecified; I10 Essential (primary) hypertension; E78.2 Mixed hyperlipidemia; M81.0 Age-related osteoporosis without current pathological fracture
CPT/HCPCS: 36415; 80053; 80061; 82306; 83036; 84443; 85025

== ENCOUNTER → 2019-10-02 08:58 | Outpatient (CLI) | payer MEDICARE, OTHER, SELFPAY ==
--- NOTE | 2019-10-02 10:41 | P.PCN_ITS ---
Cardiac Stress Test Report Referral & Results Date Patient Seen: 10/02/19 Requesting provider: Ledy Coreas Indication: Shortness of breath Rest ECG: Unremarkable Procedure Note: After both written and verbal informed consent the patient had an IV started by the diagnostic imaging RN and then was hooked up to the treadmill monitoring system. The patient was placed on the treadmill at 1 mile an hour with no elevation and was then injected with the Nat scan material. The Cardiolite was then immediately administered. The patient spent an additional 2-3 minutes on the treadmill before being returned to the [facility] in the supine position. The patient had a normal response to all infused materials. Impression: Normal response to infuse materials as above, please see perfusion imaging report for details regarding possible ischemia Please note: Actual ECG tracings can be found in the PACS system.
--- NOTE | 2019-10-06 04:54 | DI.NM.S_ITS ---
DATE OF SERVICE: 10/02/2019 PROCEDURE: Pharmacological perfusion study. INDICATION: Shortness of breath with underlying hypertension. RADIOPHARMACEUTICAL: 24.8 mCi technetium-99m Myoview IV was injected at stress, and 24.6 mCi technetium-99m Myoview IV was injected at rest. CARDIAC STRESS: Patient underwent IV Lexiscan perfusion study under the supervision of an attending staff using standard IV Lexiscan protocol. Patient remained hemodynamically stable. Baseline EKG revealed sinus rhythm. Stress EKG did not reveal any convincing ischemic changes . There were baseline artifacts. No significant arrhythmia seen. Patient remained hemodynamically stable. No significant symptoms were reported. RAW DATA: There appears to be breast shadow. GATED STUDY: Resting LV ejection fraction 81% and stress LV ejection fraction 93% without any obvious wall motion abnormalities. Resting end-diastolic volume is 63 mL. No transient ischemic dilatation. TID ratio 0.97, which is within normal limits. Lung/heart ratio 0.43, which is within normal limits. MYOCARDIAL PERFUSION SCAN: Please note that this patient does not have any prone images due to recent knee surgery. Stress supine imaging were compared to resting supine images. There appears to be predominantly fixed small-sized moderately severe perfusion defect involving anteroapical area. No significant reversibility is seen. CONCLUSION: Small-sized moderately severe fixed anteroapical defect without any significant reversibility. That segment is moving well, which goes against the diagnosis of previous transmural myocardial infarction. Patient does not have any prone images hence cannot distinguish between possibilities of tissue attenuation artifact versus small-sized infarction of anteroapical wall. Overall, in absence of significant reversible ischemia, preserved LV function, this scan appears to be low-risk myocardial perfusion scan. Clinical correlation is recommended. Aniyah Castillo - PERSONAL INVESTMENT ADVISER/fn/kv doc#: [id number]/job#: [id number] dd: 10/05/2019 16:52:00 dt: 10/06/2019 04:44:00 DICTATING MD/COPIES TO: Jude Fairbanks MD COPIES MNE: LUCIA
== END ==
PROVIDERS: PCP Physician Assistant; Visit Provider Physician Assistant
DX: R06.02 Shortness of breath (principal); I10 Essential (primary) hypertension
CPT/HCPCS: 78452; 93016; 93017; 93018; A9502; J2785

== ENCOUNTER → 2019-11-26 12:17 | Outpatient (CLI) | payer MEDICARE, OTHER, SELFPAY ==
--- NOTE | 2019-11-26 12:19 | DI.US.S_ITS ---
PROCEDURE: US PERIPH VENOUS LOW EXTREM LT INDICATIONS: leg swelling left, h/o dvt TECHNIQUE: Real-time imaging, as well as color and pulse Doppler interrogation, were performed of the lower extremity deep veins from the inguinal ligament to the popliteal fossa. COMPARISON: None. FINDINGS: The common femoral, femoral and popliteal veins are normally compressible, and free of intraluminal thrombus. Color and pulse Doppler demonstrate normal phasic intraluminal flow. There is normal augmentation response to distal compression maneuver. Moderate amount of subcutaneous edema seen in the areas of leg swelling. IMPRESSION: 1. No evidence of deep venous thrombosis in the left lower extremity. 2. Moderate left ankle edema. 3. Preliminary results given by the technologist to the ordering provider. Dictated by: Krystina Rollins M.D. on 11/26/2019 at 13:35 Approved by: Krystina Rollins M.D. on 11/26/2019 at 13:35
== END ==
PROVIDERS: PCP Physician Assistant; Visit Provider Internal Medicine Hematology & Oncology
DX: C50.919 Malignant neoplasm of unspecified site of unspecified female breast (principal); M79.89 Other specified soft tissue disorders; R60.0 Localized edema; Z86.718 Personal history of other venous thrombosis and embolism
CPT/HCPCS: 93971

== ENCOUNTER → 2020-05-06 18:35 | Outpatient (ROUT) | payer MEDICARE, OTHER, SELFPAY ==
[2020-05-06 18:53] LABS: Add Manual Diff / Slide Review NO; Alanine Aminotransferase 16 IU/L (<35); Albumin 3.8 g/dL (3.5-5.0); Albumin Globulin Ratio 1.4 (1.0-2.8); Alkaline Phosphatase 59 U/L (38-126); Aspartate Aminotransferase 24 IU/L (14-36); BUN Creatinine Ratio 15.3 (6-22); Basophils Absolute Auto 100 /uL (0-100); Basophils Percent Auto 0.9 % (0-2); Bilirubin Total 0.7 mg/dL (0.2-1.3); Blood Urea Nitrogen 13 mg/dL (7-17); Calcium 9.8 mg/dL (8.4-10.2); Carbon Dioxide 25 mmol/L (22-32); Chloride 104 mmol/L (98-107); Cholesterol 165 mg/dL (140-199); Eosinophils Absolute Auto 200 /uL (0-450); Eosinophils Percent Auto 3.4 % (2-4); Estimated Glomerular Filt Rate > 60.0 mL/min (>60); Globulin 2.8 g/dL (1.7-4.1); Glucose 133 mg/dL (80-110); HDL Cholesterol 34 mg/dL (40-60); HEMOLYSIS < 15 (0-50); Hematocrit 39.1 % (36-46); Hemoglobin 13.4 g/dL (12.0-16.0); LDL Cholesterol Calculated 96 mg/dL (<100); Lymphocytes Absolute Auto 1600 /uL (1100-4500); Lymphocytes Percent Auto 27.5 % (25-40); Mean Corpuscular HGB Conc 34.2 % (30-36); Mean Corpuscular Hemoglobin 29.8 PG (26-34); Mean Corpuscular Volume 87.2 fL (80-100); Monocytes Absolute Auto 500 /uL (0-900); Monocytes Percent Auto 8.7 % (3-14); Neutrophils Absolute Auto 3500 /uL (1500-7000); Neutrophils Percent Auto 59.5 % (50-75); Platelet Count 224 X10^3/uL (150-400); Potassium 4.3 mmol/L (3.4-5.1); Red Blood Cell Count 4.48 X10^6/uL (4.0-5.2); Red Cell Distribution Width 13.6 % (11.6-14.8); Sodium 139 mmol/L (137-145); Total Protein 6.6 g/dL (6.3-8.2); Triglycerides 173 mg/dL (35-150); White Blood Cell Count 5.8 X10^3/uL (4.5-11.0)
[2020-05-06 19:50] LABS: Free T4, Direct Thyroxine 1.08 ng/dL (0.78-2.19)
== END ==
PROVIDERS: PCP Physician Assistant; Visit Provider Physician Assistant
DX: L29.9 Pruritus, unspecified (principal); E11.9 Type 2 diabetes mellitus without complications; I10 Essential (primary) hypertension; E03.9 Hypothyroidism, unspecified
CPT/HCPCS: 80053; 80061; 83036; 84439; 84443; 85025

== ENCOUNTER → 2020-05-18 12:34 | Outpatient (CLI) | payer OTHER, SELFPAY ==
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
== END ==
PROVIDERS: PCP Physician Assistant; Referring Provider Physician Assistant; Visit Provider Physician Assistant
DX: M54.2 Cervicalgia (principal); M47.812 Spondylosis without myelopathy or radiculopathy, cervical region
CPT/HCPCS: 72040

== ENCOUNTER → 2020-07-08 13:51 | Outpatient (CLI) | payer MEDICARE, OTHER, SELFPAY ==
--- NOTE | 2020-07-08 | DI.MG.S_ITS ---
BILATERAL DIGITAL SCREENING MAMMOGRAM 3D/2D WITH CAD POST LUMPECTOMY: 07/08/2020 CLINICAL: Routine screening. Personal history of left breast cancer. Comparison is made to exams dated: 07/06/2019 mammogram, 07/03/2018 mammogram, and 06/26/2017 mammogram - [facility]. There are scattered fibroglandular elements in both breasts. Current study was also evaluated with a Computer Aided Detection (CAD) system. There are benign calcifications in both breasts. There also are benign post operative findings in the right breast. No significant masses, calcifications, or other findings are seen in either breast. There has been no significant interval change. IMPRESSION: BENIGN There is no mammographic evidence of malignancy. A 1 year screening mammogram is recommended. This exam was interpreted at Station ID: [id number]. NOTE: For mammograms, a report in lay terms will be sent to the patient. Approximately 15% of breast malignancies will not be visualized mammographically. In the management of a palpable breast mass, a negative mammogram must not discourage biopsy of a clinically suspicious lesion. Electronically Signed By: Oswald Wilcox M.D., jr/sheree:07/08/2020 16:55:58 copy to: Ledy Coreas copy to: ANNIE MARIE letter sent: Normal Exam ACR BI-RADS Category 2: Benign Finding(s) 3342F
== END ==
PROVIDERS: PCP Physician Assistant; Referring Provider Internal Medicine Hematology & Oncology; Visit Provider Internal Medicine Hematology & Oncology
DX: Z12.31 Encounter for screening mammogram for malignant neoplasm of breast (principal); Z85.3 Personal history of malignant neoplasm of breast
CPT/HCPCS: 77063; 77067

== ENCOUNTER → 2021-03-18 11:18 | Outpatient (CLI) | payer OTHER, SELFPAY ==
--- NOTE | 2021-03-18 | DI.MRI.S_ITS ---
PROCEDURE: MR HEAD/BRAIN WO CON INDICATIONS: HEADACHE TECHNIQUE: Noncontrast axial T1 spin echo, axial T2 fast spin echo, sagittal and axial FLAIR, coronal T2 fast spin echo, axial gradient echo, axial diffusion and ADC through the brain. COMPARISON: None. FINDINGS: Image quality: Excellent. CSF Spaces: Basal cisterns are patent. No extra-axial fluid collections. Ventricles are normal in size and shape. Brain: No intracranial masses or hemorrhage. There is mild, diffuse cerebral volume loss. There are minimal periventricular and subcortical white matter chronic microvascular ischemic changes. Escobar/white matter interface is normal. Brainstem appears normal. Diffusion-weighted images demonstrate no acute ischemic insult. No chronic ischemic insults. Normal intravascular flow voids are present. Skull and face: Calvarium has normal marrow signal. Orbits appear normal. Sinuses: Sinuses and mastoids are clear. IMPRESSION: 1. No acute intracranial disease process. 2. No areas of acute or chronic infarction. 3. No abnormal intracranial mass or mass effect. 4. Mild, diffuse cerebral volume loss. 6. Minimal periventricular and subcortical white matter chronic microvascular ischemic change. Dictated by: Temitope Baron MD, PhD on 03/20/2021 at 12:58 Approved by: Temitope Baron MD, PhD on 03/20/2021 at 13:01
== END ==
PROVIDERS: PCP Physician Assistant; Referring Provider Physician Assistant; Visit Provider Physician Assistant
DX: R51.9 Headache, unspecified (principal)
CPT/HCPCS: 70551

== ENCOUNTER 2021-06-20 10:46 | Emergency (ER) | payer OTHER, SELFPAY ==
[2021-06-20] VITALS (15 sets, daily range): BP systolic 149–189; BP diastolic 66–88; PULSE 60–85; RESP 16–18; TEMP 36.7; O2SAT 93–100; BMI 31.8
--- NOTE | 2021-06-20 11:14 | DI.RAD.S_ITS ---
PROCEDURE: XR ACUTE ABDOMEN SERIES INDICATIONS: upper abd pain/ constipation. TECHNIQUE: One view chest and two views of the abdomen were acquired. COMPARISON: None. FINDINGS: Surgical changes and devices: None. Chest: Lungs are clear. Heart size is normal. No pleural effusions. No pneumoperitoneum. Abdomen: Bowel gas pattern is normal except for mild to moderate colonic obstipation.. No suspicious calcifications. Visualized solid organ contours appear normal. Bones: No suspicious bony lesions. IMPRESSION: Nonspecific bowel gas pattern, mild to moderate colonic obstipation. Dictated by: José Bui M.D. on 06/20/2021 at 11:43 Approved by: José Bui M.D. on 06/20/2021 at 11:43
[2021-06-20 11:19] LABS: Add Manual Diff / Slide Review NO; Basophils Absolute Auto 100 /uL (0-100); Basophils Percent Auto 1.1 % (0-2); Eosinophils Absolute Auto 200 /uL (0-450); Eosinophils Percent Auto 3.1 % (2-4); Hematocrit 41.3 % (36-46); Hemoglobin 13.8 g/dL (12.0-16.0); Lymphocytes Absolute Auto 1800 /uL (1100-4500); Mean Corpuscular HGB Conc 33.4 % (30-36); Mean Corpuscular Hemoglobin 29.6 PG (26-34); Mean Corpuscular Volume 88.4 fL (80-100); Monocytes Absolute Auto 500 /uL (0-900); Monocytes Percent Auto 7.9 % (3-14); Neutrophils Absolute Auto 3600 /uL (1500-7000); Neutrophils Percent Auto 57.9 % (50-75); Platelet Count 217 X10^3/uL (150-400); Red Blood Cell Count 4.66 X10^6/uL (4.0-5.2); White Blood Cell Count 6.2 X10^3/uL (4.5-11.0)
[2021-06-20 11:24] LABS: Alanine Aminotransferase 16 IU/L (<35); Albumin Globulin Ratio 1.3 (1.0-2.8); Alkaline Phosphatase 67 U/L (38-126); Aspartate Aminotransferase 22 IU/L (14-36); BUN Creatinine Ratio 12.2 (6-22); Bilirubin Total 0.8 mg/dL (0.2-1.3); Blood Urea Nitrogen 10 mg/dL (7-17); Calcium 9.5 mg/dL (8.4-10.2); Carbon Dioxide 23 mmol/L (22-32); Chloride 108 mmol/L (98-107); Estimated Glomerular Filt Rate > 60.0 mL/min (>60); Globulin 3.2 g/dL (1.7-4.1); Glucose 160 mg/dL (80-110); HEMOLYSIS < 15 (0-50); Lipase 89 U/L (23-300); Potassium 3.9 mmol/L (3.4-5.1); Sodium 141 mmol/L (137-145); Total Protein 7.2 g/dL (6.3-8.2)
[2021-06-20 11:35] LABS: Creatine Kinase 48 U/L (30-135)
[2021-06-20 11:48] LABS: Troponin I < 0.012 ng/mL (0.01-0.034)
[2021-06-20 11:54] LABS: RBC Urine None Seen (0-5/HPF)
[2021-06-20 12:07] LABS: Bacteria Urine Occasional (0-1); Squamous Epithelial Cell Urine 5-10 /HPF (0-5/HPF); WBC Urine 1-5/HPF (0-5/HPF)
[2021-06-20 12:08] LABS: TSH w/ Reflex to FT4 4.66 uIU/mL (0.47-4.68)
--- NOTE | 2021-06-20 12:35 | ED.ABDPAIN ---
HPI - Abdominal Pain General Chief Complaint: Abdominal Pain Stated Complaint: ABD pain, hard to the touch Time Seen by Provider: 06/20/21 12:33 Source: patient Mode of arrival: Ambulatory Limitations: no limitations History of Present Illness HPI narrative: This is an 85-year-old female comes emergency department with complaint of intermittent abdominal pain that his been on and off. Patient has had symptoms for several years. She saw her primary care physician 2 weeks ago who stopped her omeprazole and put her on pantoprazole twice daily. She states this has not been very helpful. Patient states she will often have symptoms after eating, she will have a lot of eructation but that does not really resolve her symptoms. She has also noted that her abdomen becomes quite bloated. And that this is atypical. She feels very distended and full today. No fevers, no chills. She does describe in the epigastric area but no other upper chest pain. She denies any new shortness of breath. She denies any nausea or vomiting. She has some chronic constipation but stools regularly. She denies any dysuria but does have some frequency, and occasional urgency. She states her urinary symptoms are not new. She has had or her pain will radiate around to her back. Nothing seems to alleviate or exacerbate her symptoms other than food. She has had chronic back pains in the past and has seen Dr. Downs with Orthopedic surgery and is in process of seeing Dr. Mccall for 2nd opinion. Patient is on medication for hypothyroidism, hypertension and GERD. She had EGD in 2017 she does have a remote history of breast cancer. She has had a cholecystectomy and total hysterectomy as well as appendectomy. She does have a pacemaker. Related Data Home Medications Medication Instructions Recorded Confirmed losartan 50 mg tablet 50 mg PO BID 09/11/18 09/01/20 omeprazole 40 mg capsule,delayed 40 mg PO/SL BID 09/11/18 09/01/20 release cholecalciferol (vitamin D3) 25 1,000 unit DAILY 08/06/19 09/01/20 mcg (1,000 unit) tablet (Vitamin D3) Lactobacillus acidophilus 10 1 cell DAILY 09/01/20 09/01/20 billion cell capsule (Probiotic) Previous Rx's Medication Instructions Recorded levothyroxine 50 mcg tablet 50 mcg PO QAM #90 tab 09/17/17 Glucose: Home Monitor / #1 12/09/17 Glucose: Test Strips str TID #100 12/09/17 Lancet: Device u #100 12/09/17 Allergies Allergy/AdvReac Type Severity Reaction Status Date / Time amoxicillin [AMOXICILLIN] Allergy Intermediate RASH Verified 06/20/21 11:12 ciprofloxacin [CIPROFLOXACIN] Allergy Intermediate RASH Verified 06/20/21 11:12 codeine [CODEINE] Allergy Intermediate RASH Verified 06/20/21 11:12 vancomycin [VANCOMYCIN] Allergy Intermediate RASH Verified 06/20/21 11:12 Review of Systems Review of Systems ROS Unobtainable: All systems reviewed & are unremarkable except as noted in HPI and below Patient History Medical History Lazaro's esophagus Breast cancer Epigastric pain Hypertension Hypertriglyceridemia Hypothyroidism Insomnia Neck pain Nocturnal hypoxemia Osteopenia Plantar fasciitis Trochanteric bursitis Type 2 diabetes mellitus Venous thromboembolism (VTE) of lower extremity Surgical History History of knee replacement, total Status post hysterectomy Status post laparoscopic cholecystectomy Social History Smoking Status: Never smoker Smoking Status: Never smoker Substance Use Type: does not use Exam Narrative Exam Narrative: GENERAL: Alert and oriented x three, female in mild distress HEENT: Head normocephalic, atraumatic, EOMI, pupils reactive, face symmetric, moist mucous membranes NECK: Supple, full range of motion CARDIOVASCULAR: Regular rate and rhythm without murmurs, rubs or gallops. RESPIRATORY: Breath sounds equal bilaterally, no wheezes rales or rhonchi. ABDOMEN: Soft, positive for left upper and some right upper quadrant tenderness. Patient is mildly distended but soft. Normoactive bowel sounds all 4 quadrants. No guarding or rebound, rigidity, no mass : No CVA tenderness EXTREMITIES: Normal range of motion, no clubbing or edema. Neurovascularly intact NEUROLOGICAL: Cranial nerves II through XII grossly intact. Moving all extremities SKIN: Warm, dry, no petechiae, no rashes or lesions. Initial Vital Signs Initial Vital Signs: Vital Signs Temperature 98.1 F 06/20/21 10:52 Pulse Rate 85 06/20/21 10:52 Respiratory Rate 18 06/20/21 10:52 Blood Pressure 161/72 H 06/20/21 10:52 Pulse Oximetry 99 06/20/21 10:52 Course Orders Ordered: ED Orders 06/20/21 11:05 Complete Blood Count AUTO DIFF Stat Comprehensive Metabolic Panel Stat Lipase Stat TSH w/ Reflex to FT4 Stat Troponin & CK Cardiac Panel Stat 06/20/21 11:10 EKG-12 Lead Stat 06/20/21 11:14 XR acute abdomen series Stat 06/20/21 11:37 Urine Culture Stat Urine Microscopic Stat 06/20/21 12:45 CT abdomen pelvis w con Stat Discontinued Medications Pantoprazole Sodium (Pantoprazole 40 Mg Vial) 40 mg IV NOW ONE Stop: 06/20/21 12:46 Last Admin: 06/20/21 12:53 Dose: 40 mg Documented by: BLAKEOR Vital Signs Vital signs: Vital Signs - 8 hr 06/20/21 11:41 06/20/21 12:00 06/20/21 12:30 Pulse Rate 81 73 66 Respiratory Rate Blood Pressure Pulse Oximetry 93 95 97 06/20/21 12:59 06/20/21 13:00 06/20/21 13:01 Pulse Rate 60 62 63 Respiratory Rate Blood Pressure 174/78 H 159/69 H Pulse Oximetry 100 99 99 06/20/21 13:30 06/20/21 14:00 06/20/21 14:30 Pulse Rate 62 Respiratory Rate 16 Blood Pressure 149/66 H Pulse Oximetry 99 99 98 06/20/21 15:00 06/20/21 15:30 06/20/21 15:58 Pulse Rate 60 61 62 Respiratory Rate Blood Pressure Pulse Oximetry 98 98 98 06/20/21 15:59 Pulse Rate Respiratory Rate Blood Pressure 189/88 H Pulse Oximetry 98 MDM - Abdominal Pain Lab Data Result diagrams: 06/20/21 11:05 06/20/21 11:05 Labs: Lab Results 06/20/21 06/20/21 06/20/21 Range/Units 11:05 11:05 11:05 WBC 6.2 (4.5-11.0) X10^3/uL RBC 4.66 (4.0-5.2) X10^6/uL Hgb 13.8 (12.0-16.0) g/dL Hct 41.3 (36-46) % MCV 88.4 (80-100) fL MCH 29.6 (26-34) PG MCHC 33.4 (30-36) % RDW 13.0 (11.6-14.8) % Plt Count 217 (150-400) X10^3/uL Neut % (Auto) 57.9 (50-75) % Lymph % (Auto) 30.0 (25-40) % [place] % (Auto) 7.9 (3-14) % Eos % (Auto) 3.1 (2-4) % Baso % (Auto) 1.1 (0-2) % Neut # (Auto) 3600 (8310-3416) /uL Lymph # (Auto) 1800 (1662-0494) /uL [place] # (Auto) 500 (0-900) /uL Eos # (Auto) 200 (0-450) /uL Baso # (Auto) 100 (0-100) /uL Sodium 141 (137-145) mmol/L Potassium 3.9 (3.4-5.1) mmol/L Chloride 108 H (98-107) mmol/L Carbon Dioxide 23 (22-32) mmol/L BUN 10 (7-17) mg/dL Creatinine 0.82 (0.52-1.04) mg/dL Estimated GFR > 60.0 (>60) mL/min BUN/Creatinine Ratio 12.2 (6-22) Glucose 160 H (80-110) mg/dL Calcium 9.5 (8.4-10.2) mg/dL Total Bilirubin 0.8 (0.2-1.3) mg/dL AST 22 (14-36) IU/L ALT 16 (<35) IU/L Alkaline Phosphatase 67 (38-126) U/L Total Creatine Kinase (30-135) U/L CK-MB (CK-2) CK-MB (CK-2) Rel Index Troponin I (0.01-0.034) ng/mL Total Protein 7.2 (6.3-8.2) g/dL Albumin 4.0 (3.5-5.0) g/dL Globulin 3.2 (1.7-4.1) g/dL Albumin/Globulin Ratio 1.3 (1.0-2.8) Lipase 89 (23-300) U/L TSH 4.66 (0.47-4.68) uIU/mL Urine RBC (0-5/HPF) Urine WBC (0-5/HPF) Ur Squamous Epith Cells (0-5/HPF) Urine Bacteria (None) Ur Culture Indicated? Micro UA Comment 06/20/21 06/20/21 Range/Units 11:05 11:37 WBC (4.5-11.0) X10^3/uL RBC (4.0-5.2) X10^6/uL Hgb (12.0-16.0) g/dL Hct (36-46) % MCV (80-100) fL MCH (26-34) PG MCHC (30-36) % RDW (11.6-14.8) % Plt Count (150-400) X10^3/uL Neut % (Auto) (50-75) % Lymph % (Auto) (25-40) % [place] % (Auto) (3-14) % Eos % (Auto) (2-4) % Baso % (Auto) (0-2) % Neut # (Auto) (7136-3079) /uL Lymph # (Auto) (1658-8652) /uL [place] # (Auto) (0-900) /uL Eos # (Auto) (0-450) /uL Baso # (Auto) (0-100) /uL Sodium (137-145) mmol/L Potassium (3.4-5.1) mmol/L Chloride (98-107) mmol/L Carbon Dioxide (22-32) mmol/L BUN (7-17) mg/dL Creatinine (0.52-1.04) mg/dL Estimated GFR (>60) mL/min BUN/Creatinine Ratio (6-22) Glucose (80-110) mg/dL Calcium (8.4-10.2) mg/dL Total Bilirubin (0.2-1.3) mg/dL AST (14-36) IU/L ALT (<35) IU/L Alkaline Phosphatase (38-126) U/L Total Creatine Kinase 48 (30-135) U/L CK-MB (CK-2) TNP CK-MB (CK-2) Rel Index TNP Troponin I < 0.012 (0.01-0.034) ng/mL Total Protein (6.3-8.2) g/dL Albumin (3.5-5.0) g/dL Globulin (1.7-4.1) g/dL Albumin/Globulin Ratio (1.0-2.8) Lipase (23-300) U/L TSH (0.47-4.68) uIU/mL Urine RBC None seen (0-5/HPF) Urine WBC 1-5/hpf (0-5/HPF) Ur Squamous Epith Cells 5-10 /hpf H (0-5/HPF) Urine Bacteria Occasional (0-1) (None) Ur Culture Indicated? Culture not indicate Micro UA Comment Point of care testing: Urine Dip Bedside Urine Glucose Negative Bedside Urine Bilirubin - Negative Bedside Urine Ketone - Negative Urine Specific [place] 1.010 Bedside Urine Occult Blood - Negative Bedside Urine pH 6.0 Bedside Urine Protein - Negative Bedside Urine Urobilinogen - Negative Bedside Urine Nitrite - Negative Bedside Urine Leukocytes +/- 15 Esterase Imaging Data Abdominal x-ray: Radiologist's Impression: [address] [id number] ReportSigned Patient: Aniyah Castillo HMR#: [id number]: 1935cct:[id number]/Sex: 85 / FDate of Service: 06/20/21Loc: EDAccession Number: [id number] Procedure: XR acute abdomen series Ordering Provider: Vanita Lopez D.O. PROCEDURE: XR ACUTE ABDOMEN SERIES INDICATIONS: upper abd pain/ constipation. TECHNIQUE: One view chest and two views of the abdomen were acquired. COMPARISON: None. FINDINGS: Surgical changes and devices: None. Chest: Lungs are clear. Heart size is normal. No pleural effusions. No pneumoperitoneum. Abdomen: Bowel gas pattern is normal except for mild to moderate colonic obstipation.. No suspicious calcifications. Visualized solid organ contours appear normal. Bones: No suspicious bony lesions. IMPRESSION: Nonspecific bowel gas pattern, mild to moderate colonic obstipation. Dictated by: José Bui M.D. on 06/20/2021 at 11:43 Approved by: José Bui M.D. on 06/20/2021 at 11:43 CT scan - abdomen/pelvis: Radiologist's Impression: Aniyah Castillo H 85 F [address] [id number] Scan ReportSigned Patient: Aniyah Castillo HMR#: [id number]: 7Acct:[id number]/Sex: 85 / FDate of Service: 06/20/21Loc: EDAccession Number: [id number] Procedure: CT abdomen pelvis w con Ordering Provider: Vanita Lopez D.O. PROCEDURE: CT ABDOMEN PELVIS W CON INDICATIONS: A 85-year-old woman with upper abdominal pain, intermittent, worse w/ palp RUQ/LUQ TECHNIQUE: After the administration of intravenous contrast, axial sections acquired from the lung bases to the pubic symphysis. Coronal and sagittal reformats were performed. For radiation dose reduction, the following was used: automated exposure control, adjustment of mA and/or kV according to patient size. COMPARISON: [facility], CT, ABDOMEN/PELVIS WITH CONTRAST, 06/26/2017, 13:23. FINDINGS: Image quality: Excellent. Lung bases: Unremarkable. There is a moderate-sized hiatal hernia. Heart: No significant findings. ABDOMEN: Liver: Liver is normal in size. There is mild hepatic steatosis. A 2.8 cm cyst is seen in the left hepatic lobe. Gallbladder: Not visualized. Biliary ducts: No intrahepatic biliary dilation. Common bile duct measures up to 8.3 mm, tapering to 4.4 mm. Pancreas: Unremarkable. Spleen: Unremarkable. Adrenal Glands: Unremarkable. Kidneys and Ureters: Kidneys are normal in size and symmetric enhancement. Bilateral simple appearing renal cysts are present. Stomach and Bowel: Stomach, small bowel loops, and colon are normal in caliber. There are numerous colonic diverticula. No CT findings to suggest acute diverticulitis. There is a moderate amount of stool in colon. Peritoneum: No abnormal intraperitoneal fluid. No free air. Ventral Wall: No hernias. Abdominal Nodes: No retroperitoneal or mesenteric adenopathy by size criteria. Vessels: Aorta and inferior vena cava are normal in size. Mild atherosclerotic calcifications. PELVIS: Pelvic Organs: Uterus and ovaries are not visualized, probably surgically removed. Bladder: There is a tiny pocket of air in the urinary bladder. Pelvic Nodes: No enlarged lymph nodes. Miscellaneous: No hernias are seen. Bones: Unremarkable. Mild scoliosis. Degenerative changes in5 lumbar spine. IMPRESSION: 1. No acute abnormalities in abdomen or pelvis. 2. A moderate-sized hiatal hernia. 3. Diverticulosis without acute diverticulitis. 4. Hepatic steatosis. There is a 2.8 cm simple cyst in the left hepatic lobe. 5. Bilateral simple appearing renal cysts. Dictated by: Kimmy Salinas M.D. on 06/20/2021 at 14:58 Approved by: Kimmy Salinas M.D. on 06/20/2021 at 15:09 ECG Data Attestation: I personally reviewed and interpreted this ECG as follows: Prior ECG tracings: not available for review Interpretation: Sinus rhythm rate of 60 DC 186, QRS 88 [address]TC 436. No acute ST changes appreciated. MDM Narrative Medical decision making narrative: This is an 85-year-old female comes in with complaint of sort of intermittent abdominal pain but to also bloating of her abdomen which has been worse recently. Patient states her belly sometimes feels heart touch. She will find she often will have erect a banks. She does have a history of hiatal hernia and Lazaro's esophagitis and has been told she has scarring by her padded products inspector trimmer in [facility]. They told her she should probably establish some place closer because she has to travel so far now that she lives in this area. Her labs and imaging today did not show any major significant changes. She does have a hiatal hernia noted this may be part of her symptoms. She has had her omeprazole switched to pantoprazole for almost 2 weeks. This has made minimal improvement. Patient does not appear to have any cardiac cause of her symptoms today, we did review her findings on her CT as well. She did have some leukocyte esterase but seems like a less likely cause of her symptoms and urine cultures pending and she is aware of this and will be contacted if positive. Discharge Plan Departure Patient Disposition: Home Clinical Impression: Hernia, hiatal, Hepatic steatosis, Renal cyst, Hepatic cyst Instructions: Hiatal Hernia Activity Restrictions/Additional Instructions: Follow-up with your physician for recheck. Call for an appointment. I do recommend following with up with Gastroenterology for repeat EGD as recommended by your padded products inspector trimmer in [place]. Referral is included below. Call for an appointment. Your labs show mild change to your urine urine culture has been sent and is pending. If positive you would be contacted to started on or antibiotics. CT does show a hiatal hernia which may be contributing to some of your symptoms. You do have some hepatic steatosis or fatty liver which is a less likely cause. You have a simple cyst on your left liver as well as bilateral renal cysts these are unlikely causes of your pain today. Return for fevers, new or worsening abdominal, back or flank pain, new chest pain or shortness of breath, lightheadedness or passing out, persistent vomiting or other new or concerning symptoms. Prescriptions: No Action levothyroxine 50 MCG tablet 50 mcg PO QAM Qty: 90 RF: 1 Glucose: Home Monitor Qty: 1 RF: 0 Glucose: Test Strips TID Qty: 100 RF: 0 Lancet: Device Qty: 100 RF: 0 omeprazole 40 MG capsule,delayed release(DR/EC) 40 mg PO/SL BID RF: 0 losartan 50 mg Tablet 50 mg PO BID RF: 0 cholecalciferol (vitamin D3) [Vitamin D3] 1,000 unit Tablet 1,000 unit DAILY RF: 0 Probiotic 10 billion cell Capsule 1 cell DAILY RF: 0 Referrals: Ledy Coreas PA-C [Primary Care Provider] - Juanita Nazario MD [Physician] -
--- NOTE | 2021-06-20 12:45 | DI.CT.S_ITS ---
PROCEDURE: CT ABDOMEN PELVIS W CON INDICATIONS: A 85-year-old woman with upper abdominal pain, intermittent, worse w/ palp RUQ/LUQ TECHNIQUE: After the administration of intravenous contrast, axial sections acquired from the lung bases to the pubic symphysis. Coronal and sagittal reformats were performed. For radiation dose reduction, the following was used: automated exposure control, adjustment of mA and/or kV according to patient size. COMPARISON: [facility], CT, ABDOMEN/PELVIS WITH CONTRAST, 06/26/2017, 13:23. FINDINGS: Image quality: Excellent. Lung bases: Unremarkable. There is a moderate-sized hiatal hernia. Heart: No significant findings. ABDOMEN: Liver: Liver is normal in size. There is mild hepatic steatosis. A 2.8 cm cyst is seen in the left hepatic lobe. Gallbladder: Not visualized. Biliary ducts: No intrahepatic biliary dilation. Common bile duct measures up to 8.3 mm, tapering to 4.4 mm. Pancreas: Unremarkable. Spleen: Unremarkable. Adrenal Glands: Unremarkable. Kidneys and Ureters: Kidneys are normal in size and symmetric enhancement. Bilateral simple appearing renal cysts are present. Stomach and Bowel: Stomach, small bowel loops, and colon are normal in caliber. There are numerous colonic diverticula. No CT findings to suggest acute diverticulitis. There is a moderate amount of stool in colon. Peritoneum: No abnormal intraperitoneal fluid. No free air. Ventral Wall: No hernias. Abdominal Nodes: No retroperitoneal or mesenteric adenopathy by size criteria. Vessels: Aorta and inferior vena cava are normal in size. Mild atherosclerotic calcifications. PELVIS: Pelvic Organs: Uterus and ovaries are not visualized, probably surgically removed. Bladder: There is a tiny pocket of air in the urinary bladder. Pelvic Nodes: No enlarged lymph nodes. Miscellaneous: No hernias are seen. Bones: Unremarkable. Mild scoliosis. Degenerative changes in5 lumbar spine. IMPRESSION: 1. No acute abnormalities in abdomen or pelvis. 2. A moderate-sized hiatal hernia. 3. Diverticulosis without acute diverticulitis. 4. Hepatic steatosis. There is a 2.8 cm simple cyst in the left hepatic lobe. 5. Bilateral simple appearing renal cysts. Dictated by: Kimmy Salinas M.D. on 06/20/2021 at 14:58 Approved by: Kimmy Salinas M.D. on 06/20/2021 at 15:09
[2021-06-20] MEDS: PANTOPRAZOLE 40 MG VIAL IV (12:53)
== END 2021-06-20 16:09 | disposition home or self-care (01) ==
PROVIDERS: Emergency Provider Emergency Medicine; PCP Physician Assistant
DX: K44.9 Diaphragmatic hernia without obstruction or gangrene (principal); K76.0 Fatty (change of) liver, not elsewhere classified; N28.1 Cyst of kidney, acquired; K76.89 Other specified diseases of liver
CPT/HCPCS: 36415; 74022; 74177; 80053; 81003; 81015; 82550; 83690; 84443; 84484; 85025; 87086; 93005; 96374; 99284; C9113; Q9967

== ENCOUNTER → 2021-07-17 14:23 | Outpatient (CLI) | payer OTHER, SELFPAY ==
--- NOTE | 2021-07-17 | DI.MG.S_ITS ---
BILATERAL DIGITAL SCREENING MAMMOGRAM 3D/2D WITH CAD - LEFT BREAST POST LUMPECTOMY: 07/17/2021 CLINICAL: Routine screening. Personal history of left breast cancer. Comparison is made to exams dated: 07/08/2020 mammogram, 07/06/2019 mammogram, 07/03/2018 mammogram, 06/06/2016 mammogram - [facility], and 03/29/2014 mammogram - [facility]. There are scattered fibroglandular elements in both breasts. Current study was also evaluated with a Computer Aided Detection (CAD) system. There are benign calcifications in both breasts. There also are benign post operative findings in the left breast. No significant masses, calcifications, or other findings are seen in either breast. There has been no significant interval change. IMPRESSION: BENIGN There is no mammographic evidence of malignancy. A 1 year screening mammogram is recommended. This exam was interpreted at Station ID: [id number]. NOTE: For mammograms, a report in lay terms will be sent to the patient. Approximately 15% of breast malignancies will not be visualized mammographically. In the management of a palpable breast mass, a negative mammogram must not discourage biopsy of a clinically suspicious lesion. Electronically Signed By: Jerrod pike/sheree:07/17/2021 16:52:25 copy to: Ledy Coreas copy to: ANNIE MARIE letter sent: Normal Exam ACR BI-RADS Category 2: Benign Finding(s) 3342F
== END ==
PROVIDERS: PCP Physician Assistant; Referring Provider Internal Medicine Hematology & Oncology; Visit Provider Internal Medicine Hematology & Oncology
DX: Z12.31 Encounter for screening mammogram for malignant neoplasm of breast (principal); Z80.3 Family history of malignant neoplasm of breast
CPT/HCPCS: 77063; 77067

== ENCOUNTER 2022-03-23 10:58 | Emergency (ER) | payer OTHER, SELFPAY ==
[2022-03-23] VITALS (8 sets, daily range): BP systolic 141–161; BP diastolic 64–80; PULSE 63–81; RESP 16–20; TEMP 36.3; O2SAT 96–99; BMI 31.5
[2022-03-23 12:04] LABS: Bacteria Urine None Seen; Culture Indicated Urine Specimen Cultured; RBC Urine None Seen (0-5/HPF); Squamous Epithelial Cell Urine 1-5 /HPF (0-5/HPF); WBC Urine 1-5/HPF (0-5/HPF)
--- NOTE | 2022-03-23 12:56 | ED.ABDPAIN ---
HPI - Abdominal Pain <Bulmaro Leggett PA-C - Last Filed: 03/23/22 16:25> General Chief Complaint: Abdominal Pain Stated Complaint: stomach pain, hard abd area Time Seen by Provider: 03/23/22 12:39 Source: patient Mode of arrival: Ambulatory History of Present Illness HPI narrative: This is a 86-year-old female presents to the emergency department due to a couple weeks of mild generalized abdominal discomfort. She states she called her primary care physician told her to start taking MiraLax. Patient is not describing constipated as she had 5-6 bowel movements yesterday although she states that it was ?a little less?. Denies any fevers, nausea, vomiting, chest pain, shortness of breath, or any other concerning signs or symptoms. States that she has similar sensation 9 months ago and was diagnosed with ?a fatty liver and a little constipated?. Related Data Home Medications Medication Instructions Recorded Confirmed losartan 50 mg tablet 50 mg PO BID 09/11/18 12/19/21 omeprazole 40 mg capsule,delayed 40 mg PO/SL BID 09/11/18 08/03/21 release cholecalciferol (vitamin D3) 25 1,000 unit DAILY 08/06/19 12/19/21 mcg (1,000 unit) tablet (Vitamin D3) pantoprazole 40 mg tablet,delayed 40 mg PO DAILY 08/03/21 12/19/21 release escitalopram oxalate 10 mg tablet 10 mg PO DAILY 12/19/21 12/19/21 Previous Rx's Medication Instructions Recorded levothyroxine 50 mcg tablet 50 mcg PO QAM #90 tab 09/17/17 Glucose: Home Monitor / #1 12/09/17 Glucose: Test Strips str TID #100 12/09/17 Lancet: Device u #100 12/09/17 docusate calcium 240 mg capsule 240 mg PO DAILY 7 Days #7 cap 03/23/22 magnesium citrate 300 ml PO DAILY PRN #296 ml 03/23/22 Allergies Allergy/AdvReac Type Severity Reaction Status Date / Time amoxicillin [AMOXICILLIN] Allergy Intermediate RASH Verified 12/19/21 13:41 ciprofloxacin [CIPROFLOXACIN] Allergy Intermediate RASH Verified 12/19/21 13:41 codeine [CODEINE] Allergy Intermediate RASH Verified 12/19/21 13:41 vancomycin [VANCOMYCIN] Allergy Intermediate RASH Verified 12/19/21 13:41 Review of Systems <Bulmaro Leggett PA-C - Last Filed: 03/23/22 16:25> Review of Systems Narrative: See HPI Patient History <Bulmaro Leggett PA-C - Last Filed: 03/23/22 16:25> Medical History Lazaro's esophagus Breast cancer Epigastric pain Hypertension Hypertriglyceridemia Hypothyroidism Insomnia Neck pain Nocturnal hypoxemia Osteopenia Plantar fasciitis Trochanteric bursitis Type 2 diabetes mellitus Venous thromboembolism (VTE) of lower extremity Surgical History History of knee replacement, total Status post hysterectomy Status post laparoscopic cholecystectomy Social History Smoking Status: Never smoker Smoking Status: Never smoker Substance Use Type: does not use Exam <Bulmaro Leggett PA-C - Last Filed: 03/23/22 16:25> Narrative Exam Narrative: GENERAL: 86 year old patient appears stated age. Well-developed patient, in mild distress. HEAD: Atraumatic. Normocephalic. EYES: Pupils equal round and reactive. Extraocular motions intact. No scleral icterus. No injection or drainage. ENT: Nose without bleeding, purulent drainage. Throat without erythema, tonsillar hypertrophy or exudate. Airway patent. NECK: Trachea midline. Non tender CARDIOVASCULAR: Regular rate and rhythm without murmurs, gallops, or rubs. RESPIRATORY: Clear to auscultation. Breath sounds equal bilaterally. No wheezes, rales, or rhonchi. GASTROINTESTINAL: Very mild epigastric abdominal tenderness palpation, nondistended EXTREMITIES: No edema or joint tenderness. BACK: Nontender without deformity or crepitance. No flank tenderness. NEURO: AOx3. SKIN: No rash or erythema of visible areas Initial Vital Signs Initial Vital Signs: Vital Signs Temperature 97.4 F L 03/23/22 11:42 Pulse Rate 81 03/23/22 11:42 Respiratory Rate 18 03/23/22 11:42 Blood Pressure 161/80 H 03/23/22 11:42 Pulse Oximetry 96 03/23/22 11:42 <Bharat Huynh DO - Last Filed: 03/24/22 10:46> Initial Vital Signs Initial Vital Signs: Vital Signs Temperature 97.4 F L 03/23/22 11:42 Pulse Rate 81 03/23/22 11:42 Respiratory Rate 18 03/23/22 11:42 Blood Pressure 161/80 H 03/23/22 11:42 Pulse Oximetry 96 03/23/22 11:42 Course <Bulmaro Leggett PA-C - Last Filed: 03/23/22 16:25> Orders Ordered: ED Orders 03/23/22 11:48 EKG-12 Lead Stat 03/23/22 11:51 Urine Culture Stat Urine Microscopic Stat 03/23/22 12:57 Complete Blood Count AUTO DIFF Stat Comprehensive Metabolic Panel Stat Lipase Stat 03/23/22 13:50 XR abdomen 1V Stat Vital Signs Vital signs: Vital Signs - 8 hr 03/23/22 11:42 03/23/22 13:05 03/23/22 13:06 Temperature 97.4 F L Pulse Rate 81 63 66 Respiratory Rate 18 20 Blood Pressure 161/80 H 141/67 H Pulse Oximetry 96 97 99 03/23/22 13:30 03/23/22 13:31 03/23/22 14:30 Temperature Pulse Rate 64 63 64 Respiratory Rate Blood Pressure 148/64 H Pulse Oximetry 97 97 99 03/23/22 15:00 03/23/22 15:30 Temperature Pulse Rate 63 65 Respiratory Rate 16 Blood Pressure 159/68 H Pulse Oximetry 97 99 <Bharat Huynh DO - Last Filed: 03/24/22 10:46> Orders Ordered: ED Orders 03/23/22 11:48 EKG-12 Lead Stat 03/23/22 11:51 Urine Culture Stat Urine Microscopic Stat 03/23/22 12:57 Complete Blood Count AUTO DIFF Stat Comprehensive Metabolic Panel Stat Lipase Stat 03/23/22 13:50 XR abdomen 1V Stat Vital Signs Vital signs: Vital Signs - 8 hr 03/23/22 11:42 03/23/22 13:05 03/23/22 13:06 Temperature 97.4 F L Pulse Rate 81 63 66 Respiratory Rate 18 20 Blood Pressure 161/80 H 141/67 H Pulse Oximetry 96 97 99 03/23/22 13:30 03/23/22 13:31 03/23/22 14:30 Temperature Pulse Rate 64 63 64 Respiratory Rate Blood Pressure 148/64 H Pulse Oximetry 97 97 99 03/23/22 15:00 03/23/22 15:30 Temperature Pulse Rate 63 65 Respiratory Rate 16 Blood Pressure 159/68 H Pulse Oximetry 97 99 MDM - Abdominal Pain <Bulmaro Leggett PA-C - Last Filed: 03/23/22 16:25> Lab Data Result diagrams: 03/23/22 15:58 03/23/22 12:57 Labs: Lab Results 03/23/22 03/23/22 03/23/22 Range/Units 11:51 12:57 15:58 WBC 6.7 (4.5-11.0) X10^3/uL RBC 4.58 (4.0-5.2) X10^6/uL Hgb 13.5 (12.0-16.0) g/dL Hct 39.6 (36-46) % MCV 86.5 (80-100) fL MCH 29.5 (26-34) PG MCHC 34.1 (30-36) % RDW 13.3 (11.6-14.8) % Plt Count 217 (150-400) X10^3/uL Neut % (Auto) 57.8 (50-75) % Lymph % (Auto) 29.3 (25-40) % [place] % (Auto) 8.2 (3-14) % Eos % (Auto) 3.2 (2-4) % Baso % (Auto) 1.5 (0-2) % Neut # (Auto) 3900 (7398-5777) /uL Lymph # (Auto) 2000 (8444-3777) /uL [place] # (Auto) 500 (0-900) /uL Eos # (Auto) 200 (0-450) /uL Baso # (Auto) 100 (0-100) /uL Sodium 140 (137-145) mmol/L Potassium 4.1 (3.4-5.1) mmol/L Chloride 104 (98-107) mmol/L Carbon Dioxide 30 (22-32) mmol/L BUN 15 (7-17) mg/dL Creatinine 0.90 (0.52-1.04) mg/dL Estimated GFR > 60 (>60) mL/min BUN/Creatinine Ratio 16.7 (6-22) Glucose 122 H (80-110) mg/dL Calcium 9.8 (8.4-10.2) mg/dL Total Bilirubin 0.7 (0.2-1.3) mg/dL AST 21 (14-36) IU/L ALT 13 (<35) IU/L Alkaline Phosphatase 51 (38-126) U/L Total Protein 7.5 (6.3-8.2) g/dL Albumin 4.2 (3.5-5.0) g/dL Globulin 3.3 (1.7-4.1) g/dL Albumin/Globulin Ratio 1.3 (1.0-2.8) Lipase 99 (23-300) U/L Urine RBC None seen (0-5/HPF) Urine WBC 1-5/hpf (0-5/HPF) Ur Squamous Epith Cells 1-5 /hpf (0-5/HPF) Urine Bacteria None seen (None) Ur Culture Indicated? Specimen cultured Point of care testing: Urine Dip Bedside Urine Glucose Negative Bedside Urine Bilirubin - Negative Bedside Urine Ketone - Negative Urine Specific [place] 1.020 Bedside Urine Occult Blood - Negative Bedside Urine pH 5.5 Bedside Urine Protein - Negative Bedside Urine Urobilinogen - Negative Bedside Urine Nitrite - Negative Bedside Urine Leukocytes + 70 Esterase Imaging Data Abdominal x-ray: Radiologist's Impression: [place] [address] XRay Report Signed Patient: Aniyah Castillo MR#: [id number] : 1935 Acct:[id number] Age/Sex: 86 / F Date of Service: 03/23/22 Loc: ED Accession Number: [id number] ?? Procedure: XR abdomen 1V Ordering Provider: Bulmaro Leggett P.A-C PROCEDURE:? XR ABDOMEN 1V ? INDICATIONS:? Diffuse abdominal dicomfort, hx of constipation ? TECHNIQUE:? One view of the abdomen acquired.? ? COMPARISON:? [facility], , ABDOMEN 2 VIEW, 03/05/2018, 9:46. ? FINDINGS:? ? Surgical changes and devices:? None.? ? Bowel:? Moderate fecal stasis throughout the colon is seen.? No gross peritoneal free air.? No abnormally distended small bowel loops. ? Soft tissues:? No suspicious abdominal calcifications.? Visualized solid organ contours appear normal in size.? ? Bones:? No suspicious bony lesions.? ? IMPRESSION:? Moderate constipation.? No gross free air. ? ? Dictated by: Daryl Downs M.D. on 03/23/2022 at 14:55 ? ? Approved by: Daryl Downs M.D. on 03/23/2022 at 14:55 ? ECG Data Interpretation: 13:18 NSR at rate of 66. No ST elevation or other T wave abnormalities. MDM Narrative Medical decision making narrative: This is a 86-year-old female presents to the emergency department due to generalized abdominal mild discomfort. Denies any nausea or, fevers. States that she has a history of this approximately 9 months ago stool issues constipation. Patient states that she has had a few small bowel in the yesterday but states that it was ?less and than normal. Lab work unremarkable. No evidence of any kind of infection on CBC. Abdominal x-ray ordered which shows moderate constipation which I suspect is causing the patient's symptoms. Discussed possible enema and fecal disimpaction with the patient but patient declined and stated that she would prefer the medication prescribed. Patient will return if she is not feeling better for further evaluation. EKG showed no evidence of ACS. <Bharat Huynh, DO - Last Filed: 03/24/22 10:46> Lab Data Labs: Lab Results 03/23/22 03/23/22 03/23/22 Range/Units 11:51 12:57 15:58 WBC 6.7 (4.5-11.0) X10^3/uL RBC 4.58 (4.0-5.2) X10^6/uL Hgb 13.5 (12.0-16.0) g/dL Hct 39.6 (36-46) % MCV 86.5 (80-100) fL MCH 29.5 (26-34) PG MCHC 34.1 (30-36) % RDW 13.3 (11.6-14.8) % Plt Count 217 (150-400) X10^3/uL Neut % (Auto) 57.8 (50-75) % Lymph % (Auto) 29.3 (25-40) % [place] % (Auto) 8.2 (3-14) % Eos % (Auto) 3.2 (2-4) % Baso % (Auto) 1.5 (0-2) % Neut # (Auto) 3900 (7280-2592) /uL Lymph # (Auto) 2000 (7888-7003) /uL [place] # (Auto) 500 (0-900) /uL Eos # (Auto) 200 (0-450) /uL Baso # (Auto) 100 (0-100) /uL Sodium 140 (137-145) mmol/L Potassium 4.1 (3.4-5.1) mmol/L Chloride 104 (98-107) mmol/L Carbon Dioxide 30 (22-32) mmol/L BUN 15 (7-17) mg/dL Creatinine 0.90 (0.52-1.04) mg/dL Estimated GFR > 60 (>60) mL/min BUN/Creatinine Ratio 16.7 (6-22) Glucose 122 H (80-110) mg/dL Calcium 9.8 (8.4-10.2) mg/dL Total Bilirubin 0.7 (0.2-1.3) mg/dL AST 21 (14-36) IU/L ALT 13 (<35) IU/L Alkaline Phosphatase 51 (38-126) U/L Total Protein 7.5 (6.3-8.2) g/dL Albumin 4.2 (3.5-5.0) g/dL Globulin 3.3 (1.7-4.1) g/dL Albumin/Globulin Ratio 1.3 (1.0-2.8) Lipase 99 (23-300) U/L Urine RBC None seen (0-5/HPF) Urine WBC 1-5/hpf (0-5/HPF) Ur Squamous Epith Cells 1-5 /hpf (0-5/HPF) Urine Bacteria None seen (None) Ur Culture Indicated? Specimen cultured Point of care testing: Urine Dip Bedside Urine Glucose Negative Bedside Urine Bilirubin - Negative Bedside Urine Ketone - Negative Urine Specific [place] 1.020 Bedside Urine Occult Blood - Negative Bedside Urine pH 5.5 Bedside Urine Protein - Negative Bedside Urine Urobilinogen - Negative Bedside Urine Nitrite - Negative Bedside Urine Leukocytes + 70 Esterase Discharge Plan Departure Patient Disposition: Home Clinical Impression: Constipation Instructions: DI for Constipation Activity Restrictions/Additional Instructions: Thank you for coming to the [facility] Emergency Department today. Your lab work was unremarkable, there is not appear to be any infection or other electrolyte abnormality. The abdominal x-ray did show moderate constipation with which I suspect is causing your symptoms. Please take the medication as prescribed to help with the constipation. As we discussed if this is unable to help will you can return for possible enema and fecal disimpaction. EKG showed no evidence of any kind of heart abnormality at this time. I hope you feel better soon. Prescriptions: New docusate calcium 240 mg capsule 240 mg PO DAILY 7 Days Qty: 7 0RF magnesium citrate Solution 300 ml PO DAILY PRN (Reason: constipation) Qty: 296 0RF No Action levothyroxine 50 MCG tablet 50 mcg PO QAM Qty: 90 1RF Glucose: Home Monitor Qty: 1 0RF Glucose: Test Strips TID Qty: 100 0RF Lancet: Device Qty: 100 0RF omeprazole 40 MG capsule,delayed release(DR/EC) 40 mg PO/SL BID 0RF losartan 50 mg Tablet 50 mg PO BID 0RF cholecalciferol (vitamin D3) [Vitamin D3] 1,000 unit Tablet 1,000 unit DAILY 0RF pantoprazole 40 mg Tablet,Delayed Release (Dr/Ec) 40 mg PO DAILY 0RF escitalopram oxalate 10 mg tablet 10 mg PO DAILY 0RF Referrals: Ledy Coreas PA-C [Primary Care Provider] - <Bharat Huynh DO - Last Filed: 03/24/22 10:46> Cosign ED Attending Cosignature Attestation: I was immediately available in the department for consultation. This documentation has been reviewed and I agree with assessment and plan. Supervised by Bharat Huynh DO
[2022-03-23 13:18] LABS: Alanine Aminotransferase 13 IU/L (<35); Albumin 4.2 g/dL (3.5-5.0); Albumin Globulin Ratio 1.3 (1.0-2.8); Alkaline Phosphatase 51 U/L (38-126); Aspartate Aminotransferase 21 IU/L (14-36); BUN Creatinine Ratio 16.7 (6-22); Bilirubin Total 0.7 mg/dL (0.2-1.3); Blood Urea Nitrogen 15 mg/dL (7-17); Calcium 9.8 mg/dL (8.4-10.2); Carbon Dioxide 30 mmol/L (22-32); Chloride 104 mmol/L (98-107); Estimated Glomerular Filt Rate > 60 mL/min (>60); Globulin 3.3 g/dL (1.7-4.1); Glucose 122 mg/dL (80-110); HEMOLYSIS < 15 (0-50); Lipase 99 U/L (23-300); Potassium 4.1 mmol/L (3.4-5.1); Sodium 140 mmol/L (137-145); Total Protein 7.5 g/dL (6.3-8.2)
--- NOTE | 2022-03-23 13:50 | DI.RAD.S_ITS ---
PROCEDURE: XR ABDOMEN 1V INDICATIONS: Diffuse abdominal dicomfort, hx of constipation TECHNIQUE: One view of the abdomen acquired. COMPARISON: [facility], , ABDOMEN 2 VIEW, 03/05/2018, 9:46. FINDINGS: Surgical changes and devices: None. Bowel: Moderate fecal stasis throughout the colon is seen. No gross peritoneal free air. No abnormally distended small bowel loops. Soft tissues: No suspicious abdominal calcifications. Visualized solid organ contours appear normal in size. Bones: No suspicious bony lesions. IMPRESSION: Moderate constipation. No gross free air. Dictated by: Daryl Downs M.D. on 03/23/2022 at 14:55 Approved by: Daryl Downs M.D. on 03/23/2022 at 14:55
[2022-03-23 16:12] LABS: Add Manual Diff / Slide Review NO; Basophils Absolute Auto 100 /uL (0-100); Basophils Percent Auto 1.5 % (0-2); Eosinophils Absolute Auto 200 /uL (0-450); Eosinophils Percent Auto 3.2 % (2-4); Hematocrit 39.6 % (36-46); Hemoglobin 13.5 g/dL (12.0-16.0); Lymphocytes Absolute Auto 2000 /uL (1100-4500); Lymphocytes Percent Auto 29.3 % (25-40); Mean Corpuscular HGB Conc 34.1 % (30-36); Mean Corpuscular Hemoglobin 29.5 PG (26-34); Mean Corpuscular Volume 86.5 fL (80-100); Monocytes Absolute Auto 500 /uL (0-900); Monocytes Percent Auto 8.2 % (3-14); Neutrophils Absolute Auto 3900 /uL (1500-7000); Neutrophils Percent Auto 57.8 % (50-75); Platelet Count 217 X10^3/uL (150-400); Red Blood Cell Count 4.58 X10^6/uL (4.0-5.2); Red Cell Distribution Width 13.3 % (11.6-14.8); White Blood Cell Count 6.7 X10^3/uL (4.5-11.0)
== END 2022-03-23 16:33 | disposition home or self-care (01) ==
PROVIDERS: Emergency Medicine; Emergency Provider Physician Assistant Medical; Family Provider Physician Assistant; PCP Physician Assistant
DX: K59.00 Constipation, unspecified (principal)
CPT/HCPCS: 36415; 74018; 80053; 81003; 81015; 83690; 85025; 87086; 93005; 93010; 99283; 99284

== ENCOUNTER 2022-04-23 13:38 | Day surgery (SDC) | payer OTHER, SELFPAY ==
--- NOTE | 2022-04-23 | PATH_ITS ---
[facility] Accession Number: [id number] . 01 Material submitted: . PART A: stomach - ANTRUM PART B: esophagus - DISTAL ESOPHAGUS . 01 Diagnosis: A. Antrum: Portions of antral mucosa with mild chronic gastritis. Negative for Helicobacter organisms by immunohistochemistry. Negative for intestinal metaplasia. Negative for dysplasia or malignancy. . B. Distal Esophagus: Portions of columnar mucosa with specialized intestinal metaplasia, consistent with Lazaro's esophagus. Negative for dysplasia or malignancy. [facility] 04/27/2022 1528 Local . 01 Electronically signed: . Cora Gilmore MD, Pathologist NPI- [id number] . 01 Gross description: . Part A: ANTRUM: Received in formalin are 2 fragment(s) of beltrán, soft tissue measuring 0.3 x 0.2 x 0.1 cm to 0.1 x 0.1 x 0.1 cm submitted entirely in 1 cassette(s) Part B: DISTAL ESOPHAGUS: Received in formalin are 2 fragment(s) of beltrán, soft tissue measuring 0.3 x 0.3 x 0.1 cm to 0.3 x 0.3 x 0.1 cm submitted entirely in 1 cassette(s) /[facility] 04/24/2022 0812 Local . 01 Microscopic: . A. An immunohistochemical stain was performed to evaluate for Helicobacter organisms and is negative. The control stain showed appropriate reactivity. . * This test was developed and its performance characteristics determined by [employer]. It has not been cleared or approved by the U.S. Food and Drug Administration. The FDA has determined that such clearance or approval is not necessary. This test is used for clinical purposes. It should not be regarded as investigational or for research. . 01 Pathologist provided ICD-10: K59.00, K22.70, K21.9 . 01 CPT . 885780, 379049, T78276 Performed at: 01 [facility] [address] [place] [address], [place], [place] [id number] MD Junior Watkins MD Phone: [phone]
--- NOTE | 2022-04-23 14:08 | P.HP_ITS ---
History of Present Illness History of Present Illness Date Patient Seen: 04/23/22 Time Patient Seen: 14:08 Chief complaint: EGD W/POSS BX Narrative: I reviewed my note from September 2021. Refractory reflux symptoms continue as do the struggles with constipation. She has remote history of Barretts. Patient History Medical History Lazaro's esophagus Breast cancer Epigastric pain Hypertension Hypertriglyceridemia Hypothyroidism Insomnia Neck pain Nocturnal hypoxemia Osteopenia Plantar fasciitis Trochanteric bursitis Type 2 diabetes mellitus Venous thromboembolism (VTE) of lower extremity Surgical History History of knee replacement, total Status post hysterectomy Status post laparoscopic cholecystectomy Family & Social History Tobacco & Substance use: Smoking Status Never smoker Substance Use Type does not use Meds Home Medications and Allergies Home Medications Medication Instructions Recorded Confirmed Type levothyroxine 50 mcg tablet 50 mcg PO QAM #90 tab 09/17/17 12/19/21 Rx Glucose: Home Monitor / #1 12/09/17 12/19/21 Rx Glucose: Test Strips str TID #100 12/09/17 12/19/21 Rx Lancet: Device u #100 12/09/17 12/19/21 Rx losartan 50 mg tablet 50 mg PO BID 09/11/18 12/19/21 History omeprazole 40 mg capsule,delayed 40 mg PO/SL BID 09/11/18 08/03/21 History release cholecalciferol (vitamin D3) 25 1,000 unit DAILY 08/06/19 12/19/21 History mcg (1,000 unit) tablet (Vitamin D3) pantoprazole 40 mg tablet,delayed 40 mg PO DAILY 08/03/21 12/19/21 History release escitalopram oxalate 10 mg tablet 10 mg PO DAILY 12/19/21 12/19/21 History magnesium citrate 300 ml PO DAILY PRN #296 ml 03/23/22 Rx Allergies Allergy/AdvReac Type Severity Reaction Status Date / Time amoxicillin [AMOXICILLIN] Allergy Intermediate RASH Verified 12/19/21 13:41 ciprofloxacin [CIPROFLOXACIN] Allergy Intermediate RASH Verified 12/19/21 13:41 codeine [CODEINE] Allergy Intermediate RASH Verified 12/19/21 13:41 vancomycin [VANCOMYCIN] Allergy Intermediate RASH Verified 12/19/21 13:41 ciprofibrate Allergy Unknown Hives Verified 04/20/22 16:22 cortisone Allergy Unknown Hives Verified 04/20/22 16:22 Review of Systems Review of Systems ROS: Yes All systems reviewed with the patient and are negative except as otherwise documented Exam Const General: cooperative and comfortable Orientation: alert HENMT Head: normocephalic Ears: external ears normal Nose: external nose normal Face and sinus: normal facial exam Mouth: oral mucosae normal Eyes General: appearance normal, both eyes and all related structures Neck Neck: normal visual inspection Chest Chest: normal inspection of the chest Resp Effort & Inspection: normal respiratory effort Cardio Rate: regular rate GI Inspection: normal to inspection Skin General: no rashes or lesions noted and No jaundice Neuro General: patient alert and moves all extremities Cognition: normal cognition Speech: speech normal Extrem General: no pedal edema Psych Appearance: grossly normal Assessment & Plan Assessment & Plan narrative: 86-year-old female with 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 EGD is pursued today. Time Spent With Patient Critical Care time: I spent a total of [] minutes of critical care time on this patient's care today ; this time is exclusive of procedural time.
[2022-04-23 14:18] LABS: COVID19 -Nasal RAPID Negative (Negative)
[2022-04-23 14:23] VITALS: BP 155/70; PULSE 70; RESP 16; TEMP 36.3; O2SAT 95
[2022-04-23] MEDS: SODIUM CHLORIDE 0.9% 1,000 ML 150 ML IV (14:26)
[2022-04-23 14:32] VITALS: BMI 31.8
--- NOTE | 2022-04-23 14:46 | PM.PREOP ---
Pre-operative Note COVID-19 COVID-19 status: Negative Result date/Date tested (Pos, Neg/Pending): 04/23/22 Criteria for continued procedure: Possibility delay results in more complex future surgery or treatment Interval Note History & Physical reviewed/Exam performed by Physician: Yes Changes to H&P: No ASA Class (for procedural sedation): III
--- NOTE | 2022-04-23 15:18 | PM.OP.EGD ---
Operative Date/Time/Diagnoses Date of procedure: 04/23/22 Time of procedure: 15:18 Pre-op diagnosis: Refractory GERD and a history of Barretts. Post-op diagnosis: same Procedure & Clinicians Study performed: EGD with biopsies Same procedure as scheduled: Yes Indications: Refractory GERD and a history of Barretts Surgeon: Sylvain Kern Procedure Notes SCOAP/Timeout: Done Procedure in detail: After the risks and benefits were explained, written and verbal informed consent was obtained. The patient was brought into the procedure room and placed into the left lateral decubitus position. Please see nurse pediatric psychologist notes for sedation details. The scope was introduced into the mouth through the bite block and advanced under direct visualization to the 2nd portion of the duodenum. The scope was slowly withdrawn carefully examining the mucosa for any defects or lesions. Retroflexed views were accomplished in the stomach. The stomach was decompressed, the scope was then removed from the patient who tolerated the procedure well. Sedation minutes: 12 Complications: none Impression: 1. Duodenum: This was visually normal from the bulb through to the 2nd portion. 2. Stomach: No mass lesions no outlet obstruction no ulcers. Patient had a diffuse erythematous gastropathy most notably in the distal stomach. Antral biopsies were taken for exclusion of Helicobacter or other pathology. Patient had a very difficult time retaining the air we were using for insufflation so it was difficult to get quality retroflexed pictures. 3. Esophagus: The squamocolumnar junction extended up into the tubular esophagus consistent with the known history of Barretts. The GE junction was at approximately 35 cm from the incisors diaphragmatic pinchcock was at approximately 37 cm from the incisors. No evidence of active esophagitis no nodularity no ulceration. The Barretts was perhaps C1.5 M2. The patient was not totally tolerant of the examination. She seemed to have a tendency towards tiny micro aspirations and coughing. I therefore did not pursue the extra 2 biopsies in distal esophagus (we only acquired 2 biopsies from the Lazaro's segment). Endoscopic diagnosis 1. C 1.5 M 2 Barretts 2. 2 cm hiatal hernia. 3. Gastropathy Post-procedure Plan for aftercare: 1. Await histopathology 2. Continue daily pantoprazole. 3. Continue with fiber and MiraLax daily bowel regimen. Disposition: PACU
[2022-04-23 15:21] VITALS: BP 125/86; PULSE 58; RESP 16; TEMP 36.4; O2SAT 99
[2022-04-23 15:26] VITALS: BP 122/75; BP 123/77; PULSE 59; PULSE 60; RESP 16; O2SAT 97; O2SAT 98
[2022-04-23 15:38] VITALS: BP 132/78; PULSE 65; RESP 16; O2SAT 98
[2022-04-23 16:10] VITALS: BP 160/78; PULSE 74; RESP 16; O2SAT 95
== END 2022-04-23 16:15 | disposition home or self-care (01) ==
PROVIDERS: Family Provider Physician Assistant; PCP Physician Assistant; Referring Provider Internal Medicine Gastroenterology; Visit Provider Internal Medicine Gastroenterology
PROC: 0DJ08ZZ Inspection of Upper Intestinal Tract, Via Natural or Artificial Opening Endoscopic (ICD-10-PCS; CPT 43235; principal; 2022-04-23 15:00)
DX: K21.9 Gastro-esophageal reflux disease without esophagitis (principal); Z87.19 Personal history of other diseases of the digestive system; K59.00 Constipation, unspecified; Z20.822 Contact with and (suspected) exposure to COVID-19; K22.70 Barrett's esophagus without dysplasia; K44.9 Diaphragmatic hernia without obstruction or gangrene; K31.9 Disease of stomach and duodenum, unspecified; K29.50 Unspecified chronic gastritis without bleeding
CPT/HCPCS: 43239; 87635; C9803; J2704

== ENCOUNTER 2022-05-27 10:55 | Emergency (ER) | payer OTHER, SELFPAY ==
[2022-05-27 11:00] VITALS: BMI 30.1
[2022-05-27 11:07] VITALS: O2SAT 96
[2022-05-27 11:08] VITALS: BP 159/69; PULSE 61; O2SAT 98
--- NOTE | 2022-05-27 11:33 | PC.NURSE ---
Pt reports throat soreness, L ear pain, cracking in the corners of her mouth and small yellow dots on her tounge. Pt was seen at a clinic and prescribed an antiviral. Pt reports that the pain has improved slightly but she is still unable to swallow and has a terrible taste in her mouth.
[2022-05-27 12:22] VITALS: BP 159/69; PULSE 90; RESP 16; TEMP 36.7; O2SAT 96
--- NOTE | 2022-05-27 12:48 | ED.URI ---
HPI - URI/Sore Throat <Benigno SmithNGHIA - Last Filed: 05/27/22 14:41> General Chief Complaint: Upper Respiratory Symptoms Stated Complaint: mouth sore unable to eat or drink x7days Time Seen by Provider: 05/27/22 12:03 Source: patient Mode of arrival: Ambulatory History of Present Illness HPI Narrative: 86-year-old female, nonsmoker with history of pre-diabetes, hypertension and Lazaro's esophagus, presents to emergency department with a sore throat, left ear pain and cracked corner of her lips x2 weeks. Patient reports that she has been unable to eat or drink for the last 2 weeks due to the pain. 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 Patient was initially prescribed a 2 day course of acyclovir, but was given a refill for the same amount of time. Patient has had a hard time swallowing anything and has even vomited when trying to eat applesauce. Patient's son is concerned that she may be dehydrated. Related Data Home Medications Medication Instructions Recorded Confirmed losartan 50 mg tablet 50 mg PO DAILY 09/11/18 04/23/22 pantoprazole 40 mg tablet,delayed 40 mg PO DAILY 08/03/21 04/23/22 release cholecalciferol (vitamin D3) 50 50 mcg PO DAILY 04/23/22 04/23/22 mcg (2,000 unit) capsule (Vitamin D3) guar gum 1 packet PO DAILY 04/23/22 04/23/22 levothyroxine 75 mcg tablet 75 mcg PO DAILY 04/23/22 04/23/22 polyethylene glycol 3350 17 gram 17 g PO DAILY 04/23/22 04/23/22 oral powder packet (Miralax) Previous Rx's Medication Instructions Recorded Glucose: Home Monitor / ##1 12/09/17 Glucose: Test Strips str TID ##100 12/09/17 Lancet: Device u ##100 12/09/17 lidocaine HCl 2 % mucosal solution 1 applic mucous membrane QID PRN 05/27/22 mouth pain #200 mL loratadine 10 mg tablet (Claritin) 10 mg PO DAILY PRN allergic 05/27/22 symptoms #30 tabs Allergies Allergy/AdvReac Type Severity Reaction Status Date / Time amoxicillin [AMOXICILLIN] Allergy Intermediate RASH Verified 05/27/22 11:21 ciprofloxacin [CIPROFLOXACIN] Allergy Intermediate RASH Verified 05/27/22 11:21 codeine [CODEINE] Allergy Intermediate RASH Verified 05/27/22 11:21 vancomycin [VANCOMYCIN] Allergy Intermediate RASH Verified 05/27/22 11:21 ciprofibrate Allergy Unknown Hives Verified 05/27/22 11:21 cortisone Allergy Unknown Hives Verified 05/27/22 11:21 Review of Systems <NGHIA Saravia - Last Filed: 05/27/22 14:41> Review of Systems Narrative: Narrative: GENERAL: Denies chills, fatigue, fever, sweats. See HPI HEENT: Denies sinus pain, dizziness. Endorses sore throat, left ear pain. RESPIRATORY: Denies dyspnea, cough, wheezing, sputum. CARDIOVASCULAR: Denies chest pain, palpitations, edema. GASTROINTESTINAL: Denies abdominal pain, diarrhea, constipation. : Denies dysuria, frequency, incontinence, hematuria, urinary retention, flank pain. MUSCULOSKELETAL: Denies weakness, joint pain, or bony pain. SKIN: Denies rash, skin lesions, or pruritis. NEUROLOGIC: Denies weakness, dizziness, headache, numbness, confusion. PSYCHIATRIC: No concerning psychosocial issues. Patient History <NGHIA Saravia - Last Filed: 05/27/22 14:41> Medical History Lazaro's esophagus Breast cancer Epigastric pain Hard of hearing Hypertension Hypertriglyceridemia Hypothyroidism Insomnia Neck pain Nocturnal hypoxemia Osteopenia Plantar fasciitis Trochanteric bursitis Type 2 diabetes mellitus Venous thromboembolism (VTE) of lower extremity Surgical History History of knee replacement, total Status post hysterectomy Status post laparoscopic cholecystectomy Social History household members: none Smoking Status: Never smoker alcohol intake: never Smoking Status: Never smoker alcohol intake frequency: 0-2 drinks per day Substance Use Type: does not use Exam <NGHIA Saravia - Last Filed: 05/27/22 14:41> Narrative Exam Narrative: Exam Narrative: GENERAL: This is a well-nourished, well-developed patient, in no acute distress HEAD: Atraumatic. Normocephalic. EYES: Pupils equal round and reactive. Extraocular motions intact. No scleral icterus, injection or drainage. ENT: Nose without bleeding, positive postnasal drainage. Throat with mild erythema and visible sores on oropharynx. Tongue has mild white growth. Airway patent. Bilateral ear infusion. NECK: Trachea midline. No JVD or lymphadenopathy. Nontender. CARDIOVASCULAR: Regular rate and rhythm without murmurs, peripheral pulses intact, cap refill <2 sec. RESPIRATORY: Breath sounds equal and clear bilaterally. No wheezes, rales, or rhonchi. No cough. No increased respiratory effort. No accessory muscle use. GASTROINTESTINAL: Abdomen soft, non-tender, nondistended without guarding or rebound. No suprapubic pain. EXTREMITIES: Normal range of motion, no clubbing or edema. Neurovascularly intact. NEURO: A&O x 3. SKIN: Warm, dry, no rashes or lesions noted. Initial Vital Signs Initial Vital Signs: Vital Signs Pulse Oximetry 96 05/27/22 11:07 Reviewed <Vanita Lopez DO - Last Filed: 05/28/22 11:48> Initial Vital Signs Initial Vital Signs: Vital Signs Pulse Oximetry 96 05/27/22 11:07 Course <NGHIA Saravia - Last Filed: 05/27/22 14:41> Orders Ordered: Discontinued Medications Sodium Chloride (Normal Saline 0.9%) 1,000 mls @ 1,000 mls/hr IV BOLUS ONE Stop: 05/27/22 13:52 Last Infusion: 05/27/22 14:33 Dose: 0 mls/hr Documented By: Admin: 05/27/22 13:14 Dose: 1,000 mls/hr Documented By: AMU Ondansetron HCl (Ondansetron 4 Mg Odt) 4 mg SL NOW ONE Stop: 05/27/22 13:29 Last Admin: 05/27/22 14:00 Dose: 4 mg Documented By: DILAN Ondansetron HCl (Ondansetron 4 Mg/2 Ml Inj) 4 mg IV NOW ONE Stop: 05/27/22 14:03 Last Admin: 05/27/22 14:07 Dose: Not Given Documented By: DILAN Vital Signs Vital signs: Vital Signs - 8 hr 05/27/22 12:22 05/27/22 11:07 05/27/22 11:08 Temperature 98.1 F Pulse Rate 90 61 Respiratory Rate 16 Blood Pressure 159/69 H Pulse Oximetry 96 96 98 Oxygen Delivery Method Room Air 05/27/22 11:08 Temperature Pulse Rate Respiratory Rate Blood Pressure 159/69 H Pulse Oximetry Oxygen Delivery Method <Vanita Lopez DO - Last Filed: 05/28/22 11:48> Orders Ordered: Discontinued Medications Sodium Chloride (Normal Saline 0.9%) 1,000 mls @ 1,000 mls/hr IV BOLUS ONE Stop: 05/27/22 13:52 Last Infusion: 05/27/22 14:33 Dose: 0 mls/hr Documented By: Admin: 05/27/22 13:14 Dose: 1,000 mls/hr Documented By: JILLIAN Ondansetron HCl (Ondansetron 4 Mg Odt) 4 mg SL NOW ONE Stop: 05/27/22 13:29 Last Admin: 05/27/22 14:00 Dose: 4 mg Documented By: DILAN Ondansetron HCl (Ondansetron 4 Mg/2 Ml Inj) 4 mg IV NOW ONE Stop: 05/27/22 14:03 Last Admin: 05/27/22 14:07 Dose: Not Given Documented By: DILAN Vital Signs Vital signs: Vital Signs - 8 hr 05/27/22 12:22 05/27/22 11:07 05/27/22 11:08 Temperature 98.1 F Pulse Rate 90 61 Respiratory Rate 16 Blood Pressure 159/69 H Pulse Oximetry 96 96 98 Oxygen Delivery Method Room Air 05/27/22 11:08 Temperature Pulse Rate Respiratory Rate Blood Pressure 159/69 H Pulse Oximetry Oxygen Delivery Method MDM - URI/Sore Throat <NGHIA Saravia - Last Filed: 05/27/22 14:41> Differential Diagnosis Differential diagnosis: Likely other (Stomatitis) Lab Data Result diagrams: 05/27/22 13:07 05/27/22 13:07 Labs: Lab Results 05/27/22 05/27/22 Range/Units 13:07 13:07 WBC 8.4 (4.5-11.0) X10^3/uL RBC 4.73 (4.0-5.2) X10^6/uL Hgb 14.1 (12.0-16.0) g/dL Hct 41.5 (36-46) % MCV 87.7 (80-100) fL MCH 29.9 (26-34) PG MCHC 34.1 (30-36) % RDW 12.8 (11.6-14.8) % Plt Count 204 (150-400) X10^3/uL Neut % (Auto) 65.4 (50-75) % Lymph % (Auto) 25.4 (25-40) % Ballard % (Auto) 8.0 (3-14) % Eos % (Auto) 0.5 L (2-4) % Baso % (Auto) 0.7 (0-2) % Neut # (Auto) 5500 (0902-5228) /uL Lymph # (Auto) 2100 (3885-8875) /uL Ballard # (Auto) 700 (0-900) /uL Eos # (Auto) 0 (0-450) /uL Baso # (Auto) 100 (0-100) /uL Sodium 139 (137-145) mmol/L Potassium 3.7 (3.4-5.1) mmol/L Chloride 102 (98-107) mmol/L Carbon Dioxide 27 (22-32) mmol/L BUN 13 (7-17) mg/dL Creatinine 0.90 (0.52-1.04) mg/dL Estimated GFR > 60 (>60) mL/min BUN/Creatinine Ratio 14.4 (6-22) Glucose 99 (80-110) mg/dL Calcium 8.7 (8.4-10.2) mg/dL Total Bilirubin 1.2 (0.2-1.3) mg/dL AST 29 (14-36) IU/L ALT 18 (<35) IU/L Alkaline Phosphatase 54 (38-126) U/L Total Protein 7.4 (6.3-8.2) g/dL Albumin 4.1 (3.5-5.0) g/dL Globulin 3.3 (1.7-4.1) g/dL Albumin/Globulin Ratio 1.2 (1.0-2.8) Point of Care Testing Rapid Strep A Negative MDM Narrative Medical decision making narrative: 86 year female with complaints sore throat x2 weeks. Treatment with acyclovir and nystatin solution improved symptoms but did not fully resolve. Due to symptoms of dehydration, 1L IV fluids ordered. Nausea subsided with administration of ondansetron. Labs results within normal limits. Will provide a prescription for daily Claritin for her allergic rhinitis and lidocaine swish and spit for her mouth pain. Recommended patient continue with her previously prescribed medications. Discussed return precautions and plan of care with patient, who was agreeable to course of action. <Vanita Raphael Lopez, DO - Last Filed: 05/28/22 11:48> Lab Data Labs: Lab Results 05/27/22 05/27/22 Range/Units 13:07 13:07 WBC 8.4 (4.5-11.0) X10^3/uL RBC 4.73 (4.0-5.2) X10^6/uL Hgb 14.1 (12.0-16.0) g/dL Hct 41.5 (36-46) % MCV 87.7 (80-100) fL MCH 29.9 (26-34) PG MCHC 34.1 (30-36) % RDW 12.8 (11.6-14.8) % Plt Count 204 (150-400) X10^3/uL Neut % (Auto) 65.4 (50-75) % Lymph % (Auto) 25.4 (25-40) % Ballard % (Auto) 8.0 (3-14) % Eos % (Auto) 0.5 L (2-4) % Baso % (Auto) 0.7 (0-2) % Neut # (Auto) 5500 (5296-9605) /uL Lymph # (Auto) 2100 (0071-7922) /uL Ballard # (Auto) 700 (0-900) /uL Eos # (Auto) 0 (0-450) /uL Baso # (Auto) 100 (0-100) /uL Sodium 139 (137-145) mmol/L Potassium 3.7 (3.4-5.1) mmol/L Chloride 102 (98-107) mmol/L Carbon Dioxide 27 (22-32) mmol/L BUN 13 (7-17) mg/dL Creatinine 0.90 (0.52-1.04) mg/dL Estimated GFR > 60 (>60) mL/min BUN/Creatinine Ratio 14.4 (6-22) Glucose 99 (80-110) mg/dL Calcium 8.7 (8.4-10.2) mg/dL Total Bilirubin 1.2 (0.2-1.3) mg/dL AST 29 (14-36) IU/L ALT 18 (<35) IU/L Alkaline Phosphatase 54 (38-126) U/L Total Protein 7.4 (6.3-8.2) g/dL Albumin 4.1 (3.5-5.0) g/dL Globulin 3.3 (1.7-4.1) g/dL Albumin/Globulin Ratio 1.2 (1.0-2.8) Point of Care Testing Rapid Strep A Negative Discharge Plan Departure Patient Disposition: Home Clinical Impression: Stomatitis Instructions: DI for Allergic Rhinitis Activity Restrictions/Additional Instructions: *You have been diagnosed with allergic rhinitis and stomatitis. I will prescribe some daily Claritin to help with your runny nose and postnasal drip, which will also help your ears to drain. For your stomatitis, please continue taking the acyclovir that was previously prescribed along with the nystatin swish solution. Spit it out, and do not swallow. For your throat pain, I am prescribing a solution that you should swish in the back of your throat, hold for up to 2 minutes before spitting out. This should allow you enough pain relief in order to eat and drink normally. If this is not sufficient for your pain, you may also gargle with Benadryl elixir. Please follow-up with your family doctor this week so they can monitor your progress. *What to do: *Please continue to take your regular medications as directed. [x ] New medication prescriptions sent to your pharmacy: [facility] pharmacy [place] [ ] New medication written as a paper prescription [ ] No new medications given *Please follow up with your primary care provider in 2-3 days, call for an appointment. Let them know you were seen in the Emergency Department and that we ask that you be seen in follow up. We will electronically transmit a record of today's note if your PCP is in our system *If you do not have a primary care provider please contact the [facility] Resource line at [phone]. They will ask some questions about your medical history and help get you set up with a doctor in the community. ? Return to ER if you should have any new, worsening or concerning symptoms, such as worsening pain, severe headache, confusion, chest pain, difficulty breathing, fever greater than 101 F, shaking chills, persistent vomiting to the point that you cannot drink fluids, or other new or worsening symptoms. Prescriptions: New loratadine [Claritin] 10 mg tablet 10 mg PO DAILY PRN (Reason: allergic symptoms) Qty: 30 0RF lidocaine HCl 2 % solution 1 applic mucous membrane QID PRN (Reason: mouth pain) Qty: 200 0RF No Action Glucose: Home Monitor Qty: 1 0RF Glucose: Test Strips TID Qty: 100 0RF Lancet: Device Qty: 100 0RF losartan 50 mg Tablet 50 mg PO DAILY polyethylene glycol 3350 [Miralax] 17 gram Powder In Packet 17 g PO DAILY guar gum Packet 1 packet PO DAILY levothyroxine 75 mcg tablet 75 mcg PO DAILY cholecalciferol (vitamin D3) [Vitamin D3] 50 mcg (2,000 unit) Capsule 50 mcg PO DAILY pantoprazole 40 mg Tablet,Delayed Release (Dr/Ec) 40 mg PO DAILY Referrals: Ledy Coreas PA-C [Primary Care Provider] - Visit Report Forms: Patient Portal/API <Vanita Lopez DO - Last Filed: 05/28/22 11:48> Cosign ED Attending Cosignature Attestation: I was immediately available in the department for consultation. Documentation has been reviewed. Patient was also seen evaluated by myself on exam patient has several small areas of ulceration her posterior pharynx as well as some erythema and chelitis at the angles of her mouth. Patient has chelitis. Patient has already had valcyclovir at appropriate dose. Has nystatin which she can swish and spit. Likely virally mediated, although she has diabetes no other high-risk factors no steroids, inhalers.
[2022-05-27] MEDS: SODIUM CHLORIDE 0.9% 1,000 ML 1000 ML IV (13:14)
[2022-05-27 13:28] LABS: Add Manual Diff / Slide Review NO; Basophils Absolute Auto 100 /uL (0-100); Basophils Percent Auto 0.7 % (0-2); Eosinophils Absolute Auto 0 /uL (0-450); Eosinophils Percent Auto 0.5 % (2-4); Hematocrit 41.5 % (36-46); Hemoglobin 14.1 g/dL (12.0-16.0); Lymphocytes Absolute Auto 2100 /uL (1100-4500); Lymphocytes Percent Auto 25.4 % (25-40); Mean Corpuscular HGB Conc 34.1 % (30-36); Mean Corpuscular Hemoglobin 29.9 PG (26-34); Mean Corpuscular Volume 87.7 fL (80-100); Monocytes Absolute Auto 700 /uL (0-900); Neutrophils Absolute Auto 5500 /uL (1500-7000); Neutrophils Percent Auto 65.4 % (50-75); Platelet Count 204 X10^3/uL (150-400); Red Blood Cell Count 4.73 X10^6/uL (4.0-5.2); Red Cell Distribution Width 12.8 % (11.6-14.8); White Blood Cell Count 8.4 X10^3/uL (4.5-11.0)
[2022-05-27 13:35] LABS: Alanine Aminotransferase 18 IU/L (<35); Albumin 4.1 g/dL (3.5-5.0); Albumin Globulin Ratio 1.2 (1.0-2.8); Alkaline Phosphatase 54 U/L (38-126); Aspartate Aminotransferase 29 IU/L (14-36); BUN Creatinine Ratio 14.4 (6-22); Bilirubin Total 1.2 mg/dL (0.2-1.3); Blood Urea Nitrogen 13 mg/dL (7-17); Calcium 8.7 mg/dL (8.4-10.2); Carbon Dioxide 27 mmol/L (22-32); Chloride 102 mmol/L (98-107); Estimated Glomerular Filt Rate > 60 mL/min (>60); Globulin 3.3 g/dL (1.7-4.1); Glucose 99 mg/dL (80-110); HEMOLYSIS < 15 (0-50); Potassium 3.7 mmol/L (3.4-5.1); Sodium 139 mmol/L (137-145); Total Protein 7.4 g/dL (6.3-8.2)
[2022-05-27] MEDS: ONDANSETRON 4 MG ODT SL (14:00)
[2022-05-27 14:38] VITALS: BP 150/60; PULSE 75; RESP 18; O2SAT 98
== END 2022-05-27 14:39 | disposition home or self-care (01) ==
PROVIDERS: Emergency Provider Registered Nurse; Family Provider Physician Assistant; PCP Physician Assistant
DX: K12.1 Other forms of stomatitis (principal); E86.0 Dehydration
CPT/HCPCS: 36415; 80053; 85025; 87070; 87880; 96360; 99284

== ENCOUNTER 2022-06-01 15:36 | Emergency (ER) | payer OTHER, SELFPAY ==
[2022-06-01] VITALS (7 sets, daily range): BP systolic 163–183; BP diastolic 70–81; PULSE 59–61; RESP 18; TEMP 36.6; O2SAT 93–99; BMI 30.6
--- NOTE | 2022-06-01 17:19 | PC.NURSE ---
Addendum entered by Leroy Brice R.N. 06/01/22 18:00: Pt reports intermittent dizziness with exertion. Pt also reports nausea when eating foods. Original Note: Pt reports continued throat pain and inability to eat much food/liquids for the past two weeks. Seen 5 days ago for same issue. Visual inspection shows some redness; no blisters seen by this RN. Pt reports drinking 1 bottle of water a day and a significant decrease in food intake. Pt RR is 18. Reports intermittent pain with swallowing. Pt denies any other symptoms.
[2022-06-01 18:07] LABS: Add Manual Diff / Slide Review NO; Basophils Absolute Auto 100 /uL (0-100); Basophils Percent Auto 1.2 % (0-2); Eosinophils Absolute Auto 100 /uL (0-450); Eosinophils Percent Auto 0.9 % (2-4); Hematocrit 40.2 % (36-46); Hemoglobin 13.8 g/dL (12.0-16.0); Lymphocytes Absolute Auto 1900 /uL (1100-4500); Lymphocytes Percent Auto 20.4 % (25-40); Mean Corpuscular HGB Conc 34.4 % (30-36); Mean Corpuscular Volume 87.2 fL (80-100); Monocytes Absolute Auto 700 /uL (0-900); Monocytes Percent Auto 7.9 % (3-14); Neutrophils Absolute Auto 6400 /uL (1500-7000); Neutrophils Percent Auto 69.6 % (50-75); Platelet Count 235 X10^3/uL (150-400); Red Blood Cell Count 4.61 X10^6/uL (4.0-5.2); Red Cell Distribution Width 12.9 % (11.6-14.8); White Blood Cell Count 9.2 X10^3/uL (4.5-11.0)
[2022-06-01] MEDS: SODIUM CHLORIDE 0.9% 500 ML 1000 ML IV (18:07)
[2022-06-01 18:19] LABS: Alanine Aminotransferase 18 IU/L (<35); Albumin 4.1 g/dL (3.5-5.0); Albumin Globulin Ratio 1.3 (1.0-2.8); Alkaline Phosphatase 50 U/L (38-126); Aspartate Aminotransferase 25 IU/L (14-36); BUN Creatinine Ratio 15.5 (6-22); Bilirubin Total 1.5 mg/dL (0.2-1.3); Blood Urea Nitrogen 15 mg/dL (7-17); Calcium 9.1 mg/dL (8.4-10.2); Carbon Dioxide 29 mmol/L (22-32); Chloride 99 mmol/L (98-107); Estimated Glomerular Filt Rate 57 mL/min (>60); Globulin 3.1 g/dL (1.7-4.1); Glucose 95 mg/dL (80-110); HEMOLYSIS < 15 (0-50); Potassium 3.2 mmol/L (3.4-5.1); Sodium 140 mmol/L (137-145); Total Protein 7.2 g/dL (6.3-8.2)
--- NOTE | 2022-06-01 19:38 | ED.DENTAL ---
HPI - Dental/Oral General Chief complaint: Dental/Oral Stated complaint: blisters in her throat, not improving Time Seen by Provider: 06/01/22 17:14 Source: patient Mode of arrival: Ambulatory History of Present Illness HPI Narrative: 86-year-old female returns to the emergency department for complaints of sore throat and disinterest in drinking or eating. Patient was previously treated at [facility] urgent care and has been taking acyclovir and nystatin solution, which was causing her to be nauseous. Patient was prescribed lidocaine swish and spit for her pain. Patient reports that her sores have dissipated but she still has a hard time eating or drinking as nothing smells or tastes good to her. Patient is here with a friend. Related Data Home Medications Medication Instructions Recorded Confirmed losartan 50 mg tablet 50 mg PO DAILY 09/11/18 04/23/22 pantoprazole 40 mg tablet,delayed 40 mg PO DAILY 08/03/21 04/23/22 release cholecalciferol (vitamin D3) 50 50 mcg PO DAILY 04/23/22 04/23/22 mcg (2,000 unit) capsule (Vitamin D3) guar gum 1 packet PO DAILY 04/23/22 04/23/22 levothyroxine 75 mcg tablet 75 mcg PO DAILY 04/23/22 04/23/22 polyethylene glycol 3350 17 gram 17 g PO DAILY 04/23/22 04/23/22 oral powder packet (Miralax) Previous Rx's Medication Instructions Recorded Glucose: Home Monitor / ##1 12/09/17 Glucose: Test Strips str TID ##100 12/09/17 Lancet: Device u ##100 12/09/17 lidocaine HCl 2 % mucosal solution 1 applic mucous membrane QID PRN 05/27/22 mouth pain #200 mL loratadine 10 mg tablet (Claritin) 10 mg PO DAILY PRN allergic 05/27/22 symptoms #30 tabs Allergies Allergy/AdvReac Type Severity Reaction Status Date / Time amoxicillin [AMOXICILLIN] Allergy Intermediate RASH Verified 06/01/22 16:00 ciprofloxacin [CIPROFLOXACIN] Allergy Intermediate RASH Verified 06/01/22 16:00 codeine [CODEINE] Allergy Intermediate RASH Verified 06/01/22 16:00 vancomycin [VANCOMYCIN] Allergy Intermediate RASH Verified 06/01/22 16:00 ciprofibrate Allergy Unknown Hives Verified 06/01/22 16:00 cortisone Allergy Unknown Hives Verified 06/01/22 16:00 Review of Systems Review of Systems Narrative: Narrative: GENERAL: Denies chills, fatigue, fever, sweats. See HPI HEENT: Denies sinus pain, ear pain, difficulty swallowing, dizziness. RESPIRATORY: Denies dyspnea, cough, wheezing, sputum. CARDIOVASCULAR: Denies chest pain, palpitations, edema. GASTROINTESTINAL: Denies vomiting, abdominal pain, diarrhea, constipation. : Denies dysuria, frequency, incontinence, hematuria, urinary retention, flank pain. MSK: Denies weakness, joint pain, or bony pain. SKIN: Denies rash, skin lesions, or pruritis. NEUROLOGIC: Denies weakness, dizziness, headache, numbness, confusion. PSYCHIATRIC: No concerning psychosocial issues. Patient History Medical History Lazaro's esophagus Breast cancer Epigastric pain Hard of hearing Hypertension Hypertriglyceridemia Hypothyroidism Insomnia Neck pain Nocturnal hypoxemia Osteopenia Plantar fasciitis Trochanteric bursitis Type 2 diabetes mellitus Venous thromboembolism (VTE) of lower extremity Surgical History History of knee replacement, total Status post hysterectomy Status post laparoscopic cholecystectomy Social History household members: none Smoking Status: Never smoker alcohol intake: never Smoking Status: Never smoker alcohol intake frequency: 0-2 drinks per day Substance Use Type: does not use Exam Narrative Exam Narrative: Exam Narrative: GENERAL: This is a well-nourished, well-developed patient, in no acute distress HEAD: Atraumatic. Normocephalic. EYES: Pupils equal round and reactive. Extraocular motions intact. No scleral icterus, injection or drainage. ENT: Nose without bleeding, purulent drainage. Throat without erythema, tonsillar hypertrophy or exudate. Tiny blisters noted to back of tongue. Previous oropharynx lesions have resolved. Airway patent. NECK: Trachea midline. No JVD or lymphadenopathy. Nontender. CARDIOVASCULAR: Regular rate and rhythm without murmurs, peripheral pulses intact, cap refill <2 sec. RESPIRATORY: Breath sounds equal and clear bilaterally. No wheezes, rales, or rhonchi. No cough. No increased respiratory effort. No accessory muscle use. GASTROINTESTINAL: Abdomen soft, non-tender, nondistended without guarding or rebound. No suprapubic pain. MSK: Moves all extremities. Normal range of motion, no clubbing or edema. Neurovascularly intact. NEURO: A&O x 3. SKIN: Warm, dry, no rashes or lesions noted. Initial Vital Signs Initial Vital Signs: Vital Signs Temperature 97.8 F 06/01/22 15:55 Pulse Rate 61 06/01/22 15:55 Respiratory Rate 18 06/01/22 15:55 Blood Pressure 163/70 H 06/01/22 15:55 Pulse Oximetry 98 06/01/22 15:55 Oxygen Delivery Method 06/01/22 15:55 Reviewed Course Orders Ordered: ED Orders 06/01/22 17:43 Throat Culture Stat 06/01/22 17:56 Complete Blood Count AUTO DIFF Stat Comprehensive Metabolic Panel Stat 06/01/22 19:14 Urine Microscopic Stat 06/01/22 19:17 Urine Culture Stat Discontinued Medications Sodium Chloride (Normal Saline 0.9%) 500 mls @ 1,000 mls/hr IV BOLUS ONE Stop: 06/01/22 18:08 Last Infusion: 06/01/22 19:12 Dose: 0 mls/hr Documented By: Admin: 06/01/22 18:07 Dose: 1,000 mls/hr Documented By: CTS Vital Signs Vital signs: Vital Signs - 8 hr 06/01/22 15:55 06/01/22 17:37 06/01/22 17:38 Temperature 97.8 F Pulse Rate 61 59 L 61 Respiratory Rate 18 Blood Pressure 163/70 H Pulse Oximetry 98 98 99 Oxygen Delivery Method Room Air 06/01/22 17:38 06/01/22 19:47 06/01/22 19:48 Temperature Pulse Rate 60 Respiratory Rate Blood Pressure 178/74 H Pulse Oximetry 93 98 Oxygen Delivery Method 06/01/22 19:48 06/01/22 19:49 06/01/22 19:49 Temperature Pulse Rate 60 Respiratory Rate Blood Pressure 180/78 H 183/81 H Pulse Oximetry 98 Oxygen Delivery Method MDM - Dental/Oral Differential Diagnosis Differential diagnosis: Likely other (sore throat) Lab Data Result diagrams: 06/01/22 17:56 06/01/22 17:56 Labs: Lab Results 06/01/22 06/01/22 06/01/22 Range/Units 17:56 17:56 19:14 WBC 9.2 (4.5-11.0) X10^3/uL RBC 4.61 (4.0-5.2) X10^6/uL Hgb 13.8 (12.0-16.0) g/dL Hct 40.2 (36-46) % MCV 87.2 (80-100) fL MCH 30.0 (26-34) PG MCHC 34.4 (30-36) % RDW 12.9 (11.6-14.8) % Plt Count 235 (150-400) X10^3/uL Neut % (Auto) 69.6 (50-75) % Lymph % (Auto) 20.4 L (25-40) % [place] % (Auto) 7.9 (3-14) % Eos % (Auto) 0.9 L (2-4) % Baso % (Auto) 1.2 (0-2) % Neut # (Auto) 6400 (9788-3860) /uL Lymph # (Auto) 1900 (4676-5230) /uL [place] # (Auto) 700 (0-900) /uL Eos # (Auto) 100 (0-450) /uL Baso # (Auto) 100 (0-100) /uL Sodium 140 (137-145) mmol/L Potassium 3.2 L (3.4-5.1) mmol/L Chloride 99 (98-107) mmol/L Carbon Dioxide 29 (22-32) mmol/L BUN 15 (7-17) mg/dL Creatinine 0.97 (0.52-1.04) mg/dL Estimated GFR 57 L (>60) mL/min BUN/Creatinine Ratio 15.5 (6-22) Glucose 95 (80-110) mg/dL Calcium 9.1 (8.4-10.2) mg/dL Total Bilirubin 1.5 H (0.2-1.3) mg/dL AST 25 (14-36) IU/L ALT 18 (<35) IU/L Alkaline Phosphatase 50 (38-126) U/L Total Protein 7.2 (6.3-8.2) g/dL Albumin 4.1 (3.5-5.0) g/dL Globulin 3.1 (1.7-4.1) g/dL Albumin/Globulin Ratio 1.3 (1.0-2.8) Urine RBC 0-1/hpf (0-5/HPF) Urine WBC 30-100/hpf H (0-5/HPF) Ur Squamous Epith Cells 1-5 /hpf (0-5/HPF) Amorphous Sediment 1+ Urine Bacteria Moderate (10-30) H (None) Urine Mucus 2+ H (Negative) Ur Culture Indicated? Culture not indicate Point of Care Testing Rapid Strep A Negative Urine Dip Bedside Urine Glucose Negative Bedside Urine Bilirubin - Negative Bedside Urine Ketone ++ 40 Urine Specific [place] 1.030 Bedside Urine Occult Blood +/- Bedside Urine pH 5.5 Bedside Urine Protein +/- 15 Bedside Urine Urobilinogen - Negative Bedside Urine Nitrite - Negative Bedside Urine Leukocytes ++ 125 Esterase MDM Narrative Medical decision making narrative: 86-year-old female who returned to the emergency department with complaints of sore throat. Rapid strep was negative. All labs were within normal limits. Patient received 1 L of normal saline. I will discharge patient with instructions to stay hydrated, use Tylenol or ibuprofen as needed for discomfort, as well as the lidocaine swish and spit if needed. Discussed return precautions and plan of care with patient, who was agreeable with course of action. Discharge Plan Departure Patient Disposition: Home Clinical Impression: Sore throat Instructions: DI for Viral Pharyngitis Activity Restrictions/Additional Instructions: *You have been diagnosed with a sore throat. All of your labs came back negative and therefore I think this could be a viral illness. Should stop taking the previously prescribed medications of acyclovir and nystatin solution. Treat your symptoms with Tylenol or ibuprofen and you may use the lidocaine swish and spit for throat pain. Please make sure you hydrate as best possible and eat when you can. Please follow-up with your family doctor on Saturday. If symptoms worsen, please come back to the emergency department. *What to do: *Please continue to take your regular medications as directed. [ ] New medication prescriptions sent to your pharmacy: [ ] [ ] New medication written as a paper prescription [ x] No new medications given *Please follow up with your primary care provider in 2-3 days, call for an appointment. Let them know you were seen in the Emergency Department and that we ask that you be seen in follow up. We will electronically transmit a record of today's note if your PCP is in our system *If you do not have a primary care provider please contact the [facility] Resource line at [phone]. They will ask some questions about your medical history and help get you set up with a doctor in the community. ? Return to ER if you should have any new, worsening or concerning symptoms, such as worsening pain, severe headache, confusion, chest pain, difficulty breathing, fever greater than 101 F, shaking chills, persistent vomiting to the point that you cannot drink fluids, or other new or worsening symptoms. Prescriptions: No Action Glucose: Home Monitor Qty: 1 0RF Glucose: Test Strips TID Qty: 100 0RF Lancet: Device Qty: 100 0RF losartan 50 mg Tablet 50 mg PO DAILY polyethylene glycol 3350 [Miralax] 17 gram Powder In Packet 17 g PO DAILY guar gum Packet 1 packet PO DAILY levothyroxine 75 mcg tablet 75 mcg PO DAILY cholecalciferol (vitamin D3) [Vitamin D3] 50 mcg (2,000 unit) Capsule 50 mcg PO DAILY pantoprazole 40 mg Tablet,Delayed Release (Dr/Ec) 40 mg PO DAILY loratadine [Claritin] 10 mg tablet 10 mg PO DAILY PRN (Reason: allergic symptoms) Qty: 30 0RF lidocaine HCl 2 % solution 1 applic mucous membrane QID PRN (Reason: mouth pain) Qty: 200 0RF Referrals: Ledy Coreas PA-C [Primary Care Provider] -
[2022-06-01 19:56] LABS: Amorphous Sediment Urine 1+; Bacteria Urine Moderate (10-30); Mucus Urine 2+ (Negative); RBC Urine 0-1/HPF (0-5/HPF); Squamous Epithelial Cell Urine 1-5 /HPF (0-5/HPF); WBC Urine 30-100/HPF (0-5/HPF)
== END 2022-06-01 20:01 | disposition home or self-care (01) ==
PROVIDERS: Emergency Provider Registered Nurse; Family Provider Physician Assistant; PCP Physician Assistant
DX: J02.9 Acute pharyngitis, unspecified (principal)
CPT/HCPCS: 36415; 80053; 81003; 81015; 85025; 87070; 87086; 87880; 96360; 99284

== ENCOUNTER → 2022-07-18 12:21 | Outpatient (CLI) | payer OTHER, SELFPAY ==
--- NOTE | 2022-07-18 12:25 | DI.MG.S_ITS ---
BILATERAL DIGITAL SCREENING MAMMOGRAM 3D/2D WITH CAD: 07/18/2022 Comparison is made to exams dated: 07/17/2021 mammogram, 07/08/2020 mammogram, and 07/06/2019 mammogram - [facility]. There are scattered areas of fibroglandular density in both breasts (category b / 25%-50% glandular tissue). Current study was also evaluated with a Computer Aided Detection (CAD) system. There are benign calcifications in both breasts. There also are benign post operative findings in the left breast. No significant masses, calcifications, or other findings are seen in either breast. There has been no significant interval change. IMPRESSION: BENIGN There is no mammographic evidence of malignancy. A 1 year screening mammogram is recommended. This exam was interpreted at Station ID: [id number]. NOTE: For mammograms, a report in lay terms will be sent to the patient. Approximately 15% of breast malignancies will not be visualized mammographically. In the management of a palpable breast mass, a negative mammogram must not discourage biopsy of a clinically suspicious lesion. Electronically Signed By: Oswald Wilcox M.D., jr/sheree:07/18/2022 13:39:33 copy to: Ledy Coreas copy to: ANNIE MARIE letter sent: Normal Exam ACR BI-RADS Category 2: Benign Finding(s) 3342F
== END ==
LOC: MAMMO 12:25
PROVIDERS: Family Provider Physician Assistant; PCP Physician Assistant; Referring Provider Internal Medicine Hematology & Oncology; Visit Provider Internal Medicine Hematology & Oncology
DX: Z12.31 Encounter for screening mammogram for malignant neoplasm of breast (principal); Z85.3 Personal history of malignant neoplasm of breast
CPT/HCPCS: 77063; 77067

== ENCOUNTER → 2022-08-01 12:48 | Outpatient (CLI) | payer OTHER, SELFPAY ==
[2022-08-01 13:05] LABS: Add Manual Diff / Slide Review NO; Basophils Absolute Auto 100 /uL (0-100); Basophils Percent Auto 1.7 % (0-2); Eosinophils Absolute Auto 200 /uL (0-450); Eosinophils Percent Auto 2.7 % (2-4); Hematocrit 42.3 % (36-46); Hemoglobin 14.3 g/dL (12.0-16.0); Lymphocytes Absolute Auto 1700 /uL (1100-4500); Lymphocytes Percent Auto 26.8 % (25-40); Mean Corpuscular HGB Conc 33.9 % (30-36); Mean Corpuscular Hemoglobin 30.3 PG (26-34); Mean Corpuscular Volume 89.4 fL (80-100); Monocytes Absolute Auto 500 /uL (0-900); Monocytes Percent Auto 7.6 % (3-14); Neutrophils Absolute Auto 4000 /uL (1500-7000); Neutrophils Percent Auto 61.2 % (50-75); Platelet Count 235 X10^3/uL (150-400); Red Blood Cell Count 4.74 X10^6/uL (4.0-5.2); Red Cell Distribution Width 13.6 % (11.6-14.8); White Blood Cell Count 6.5 X10^3/uL (4.5-11.0)
[2022-08-01 13:30] LABS: Alanine Aminotransferase 18 IU/L (<35); Albumin 3.9 g/dL (3.5-5.0); Albumin Globulin Ratio 1.2 (1.0-2.8); Alkaline Phosphatase 47 U/L (38-126); Aspartate Aminotransferase 24 IU/L (14-36); BUN Creatinine Ratio 13.8 (6-22); Bilirubin Total 1.3 mg/dL (0.2-1.3); Blood Urea Nitrogen 12 mg/dL (7-17); Calcium 9.2 mg/dL (8.4-10.2); Carbon Dioxide 29 mmol/L (22-32); Chloride 103 mmol/L (98-107); Estimated Glomerular Filt Rate > 60 mL/min (>60); Globulin 3.2 g/dL (1.7-4.1); Glucose 131 mg/dL (80-110); HEMOLYSIS < 15 (0-50); Potassium 3.4 mmol/L (3.4-5.1); Sodium 141 mmol/L (137-145); Total Protein 7.1 g/dL (6.3-8.2)
== END ==
PROVIDERS: Family Provider Physician Assistant; PCP Physician Assistant; Referring Provider Internal Medicine Hematology & Oncology; Visit Provider Internal Medicine Hematology & Oncology
DX: C50.919 Malignant neoplasm of unspecified site of unspecified female breast (principal)
CPT/HCPCS: 36415; 80053; 85025

== ENCOUNTER → 2022-09-17 11:20 | Outpatient (CLI) | payer OTHER, SELFPAY ==
--- NOTE | 2022-09-17 | DI.RAD.S_ITS ---
PROCEDURE: XR CHEST 2V INDICATIONS: chronic cough TECHNIQUE: 2 views of the chest were acquired. COMPARISON: [facility], , CHEST 2 VIEW, 02/08/2016, 13:35. FINDINGS: Surgical changes and devices: There is a surgical clip in the left breast. Lungs and pleura: Mild interstitial prominence. Lungs are otherwise clear. No pleural effusions or pneumothorax. Mediastinum: Mediastinal contours are normal. Heart size is normal. Bones and chest wall: No suspicious bony abnormalities. Soft tissues appear unremarkable. IMPRESSION: 1. No acute cardiopulmonary disease. 2. Mild interstitial prominence. Dictated by: Kimmy Salinas M.D. on 09/17/2022 at 12:42 Approved by: Kimmy Salinas M.D. on 09/17/2022 at 12:46
== END ==
PROVIDERS: Family Provider Physician Assistant; PCP Physician Assistant; Referring Provider Physician Assistant; Visit Provider Physician Assistant
DX: R05.3 Chronic cough (principal)
CPT/HCPCS: 71046

== ENCOUNTER → 2022-12-18 12:01 | Outpatient (CLI) | payer MEDICARE, SELFPAY ==
--- NOTE | 2022-12-18 12:05 | DI.RAD.S_ITS ---
PROCEDURE: XR ACUTE ABDOMEN SERIES INDICATIONS: ABDOMINAL PAIN TECHNIQUE: One view chest and two views of the abdomen were acquired. COMPARISON: [facility], CR, XR CHEST 2V, 09/17/2022, 11:39. FINDINGS: Surgical changes and devices: Surgical clips in the left breast.. Chest: Lungs are clear. Heart size is normal. No pleural effusions. No pneumoperitoneum. Abdomen: Bowel gas pattern is normal. Moderate amount of stool throughout the colon. No suspicious calcifications. Visualized solid organ contours appear normal. Bones: No suspicious bony lesions. IMPRESSION: Moderate colonic fecal loading. Dictated by: Temitope Baron MD, PhD on 12/18/2022 at 13:14 Approved by: Temitope Baron MD, PhD on 12/18/2022 at 13:14
== END ==
PROVIDERS: Family Provider Physician Assistant; PCP Physician Assistant; Referring Provider Physician Assistant; Visit Provider Physician Assistant
DX: R10.9 Unspecified abdominal pain (principal)
CPT/HCPCS: 74022

== ENCOUNTER → 2023-07-02 10:30 | Outpatient (CLI) | payer OTHER, SELFPAY ==
[2023-07-02 11:18] LABS: Estimated Glomerular Filt Rate 58 mL/min (>60)
== END ==
PROVIDERS: Family Provider Physician Assistant; PCP Physician Assistant; Referring Provider Radiology Diagnostic Radiology; Visit Provider Radiology Diagnostic Radiology
DX: R48.1 Agnosia (principal)
CPT/HCPCS: 36415; 82565

== ENCOUNTER → 2023-07-03 12:52 | Outpatient (CLI) | payer OTHER, SELFPAY ==
--- NOTE | 2023-07-03 13:12 | DI.CT.S_ITS ---
PROCEDURE: CT HEAD/BRAIN WO/W CON INDICATIONS: Agnosia TECHNIQUE: 4.5 mm thick angled axial sections acquired from the foramen magnum to the vertex both before and after the administration of intravenous contrast, with coronal and sagittal reformats. For radiation dose reduction, the following was used: automated exposure control, adjustment of mA and/or kV according to patient size. COMPARISON: None. FINDINGS: Image quality: Excellent. CSF spaces: Basal cisterns are patent. No extra-axial fluid collections. Ventricles are symmetric in size and shape. Brain: No midline shift. No intracranial bleeds or masses. No abnormal intracranial enhancement. There is cerebral volume loss for age. There is mild periventricular white matter chronic small vessel ischemic change. There is intracranial internal carotid artery atherosclerosis. Skull and face: Calvarium and visualized facial bones appear intact, without suspicious lesions. Bilateral lens replacements. Sinuses: Visualized sinuses and mastoids are clear. IMPRESSION: No acute intracranial abnormalities. No abnormal intracranial enhancement. Dictated by: Minh Manzanares M.D. on 07/03/2023 at 14:03 Approved by: Minh Manzanares M.D. on 07/03/2023 at 14:06
== END ==
PROVIDERS: Family Provider Physician Assistant; PCP Physician Assistant; Referring Provider Physician Assistant; Visit Provider Physician Assistant
DX: I65.29 Occlusion and stenosis of unspecified carotid artery (principal); R48.1 Agnosia; R43.0 Anosmia
CPT/HCPCS: 70470

== ENCOUNTER → 2023-07-19 12:31 | Outpatient (CLI) | payer OTHER, SELFPAY ==
--- NOTE | 2023-07-19 12:32 | DI.MG.S_ITS ---
BILATERAL DIGITAL SCREENING MAMMOGRAM 3D/2D WITH CAD: 07/19/2023 CLINICAL: Routine screening. Personal history of left breast cancer. Comparison is made to exams dated: 07/18/2022 mammogram, 07/17/2021 mammogram, 07/08/2020 mammogram, and 07/06/2019 mammogram - [facility]. There are scattered areas of fibroglandular density in both breasts (category b / 25%-50% glandular tissue). Current study was also evaluated with a Computer Aided Detection (CAD) system. There is a benign area of fat necrosis in the left breast. There also are benign vascular calcifications in both breasts. Additionally, there are benign post operative findings in the left breast. No significant masses, calcifications, or other findings are seen in either breast. There has been no significant interval change. IMPRESSION: BENIGN There is no mammographic evidence of malignancy. A 1 year screening mammogram is recommended. This exam was interpreted at Station ID: [id number]. NOTE: For mammograms, a report in lay terms will be sent to the patient. Approximately 15% of breast malignancies will not be visualized mammographically. In the management of a palpable breast mass, a negative mammogram must not discourage biopsy of a clinically suspicious lesion. Electronically Signed By: Tree petersen/sheree:07/19/2023 13:54:39 copy to: Ledy Coreas copy to: ANNIE MARIE letter sent: Normal Exam ACR BI-RADS Category 2: Benign Finding(s) 3342F
== END ==
PROVIDERS: Family Provider Physician Assistant; PCP Physician Assistant; Referring Provider Internal Medicine Hematology & Oncology; Visit Provider Internal Medicine Hematology & Oncology
DX: Z12.31 Encounter for screening mammogram for malignant neoplasm of breast (principal); Z85.3 Personal history of malignant neoplasm of breast
CPT/HCPCS: 77063; 77067

== ENCOUNTER → 2023-07-31 14:35 | Outpatient (CLI) | payer OTHER, SELFPAY ==
--- NOTE | 2023-07-31 | DI.US.S_ITS ---
PROCEDURE: US ABDOMEN COMPLETE INDICATIONS: LOWER ABDOMINAL AND SUPRAPUBIC DISCOMFORT TECHNIQUE: Real-time scanning was performed of the abdominal and retroperitoneal organs, with image documentation. COMPARISON: None. FINDINGS: Liver: Left hepatic cyst measures 2.9 cm. Hepatic parenchyma shows diffuse increased echogenicity consistent with fatty infiltration. Gallbladder: Cholecystectomy Biliary ducts: Intrahepatic bile ducts are non-dilated. Extrahepatic bile duct caliber measures 9 mm. Normal is 6-7 mm or less in diameter, or 10 mm or less post-cholecystectomy. Pancreas: Visualized portions of the pancreas are sonographically normal. Spleen: Spleen is normal in size and homogeneous in echotexture. Kidneys: Bilateral renal cysts measure up to 4.2 cm on the right and 5.0 cm on the left. No hydronephrosis or shadowing calculi Aorta: Visualized aorta is normal in caliber at less than 3 cm. Iliacs: Proximal common iliac arteries are normal in caliber at less than 2.5 cm. IVC: Intrahepatic inferior vena cava is patent. Miscellaneous: No free abdominal fluid. IMPRESSION: Hepatorenal simple cysts. Largest is a left renal cyst measuring 5 cm. No hydronephrosis Hepatic fatty infiltration. Cholecystectomy Approved by: Chris Avery M.D. on 07/31/2023 at 17:40
--- NOTE | 2023-07-31 | DI.US.S_ITS ---
PROCEDURE: US PELVIC COMPLETE INDICATIONS: LOWER ABDOMINAL AND SUPRAPUBIC DISCOMFORT TECHNIQUE: Real-time scanning was performed of the pelvic organs, with image documentation. Additional endovaginal scanning was necessary due to incomplete visualization of the adnexal and endometrial structures by transabdominal scanning. COMPARISON: None. FINDINGS: Uterus: Surgically absent Ovaries: Surgically absent Other: No pathologic free abdominal or pelvic fluid. IMPRESSION: Unremarkable ultrasound the pelvis status post hysterectomy and bilateral oophorectomy Approved by: Chris Avery M.D. on 07/31/2023 at 17:41
== END ==
PROVIDERS: Family Provider Physician Assistant; PCP Physician Assistant; Referring Provider Physician Assistant; Visit Provider Physician Assistant
DX: N28.1 Cyst of kidney, acquired (principal); K76.89 Other specified diseases of liver; K76.0 Fatty (change of) liver, not elsewhere classified; R10.9 Unspecified abdominal pain; Z90.49 Acquired absence of other specified parts of digestive tract; Z90.710 Acquired absence of both cervix and uterus; Z90.722 Acquired absence of ovaries, bilateral
CPT/HCPCS: 76700; 76830; 76856

== ENCOUNTER → 2023-10-28 08:30 | Outpatient (CLI) | payer OTHER, SELFPAY ==
--- NOTE | 2023-10-28 | DI.RAD.S_ITS ---
PROCEDURE: FL BARIUM SWALLOW W SPEECH INDICATIONS: DYSPHAGIA COMPARISON: None. TECHNIQUE: Examination was conducted in conjunction with speech pathology per standard protocol. In the lateral projection, filming was performed of the patient swallowing. AP projection filming may also be performed with patient swallowing. COMPARISON: FINDINGS: Function: The oral preparatory phase appears normal, with proper containment. The subsequent oral propulsive phase, pharyngeal phase, and esophageal phase of swallowing also appear normal with all proffered substances. No laryngotracheal penetration or aspiration. No pathologic vallecular pooling. Calibrated barium tablet stuck in the distal esophagus without passage into the stomach. Morphology: No cricopharyngeal bar is identified. No cervical esophageal webs. No Zenker's diverticulum. No strictures. A small hiatal hernia is noted. IMPRESSION: No laryngotracheal penetration or aspiration. Please refer to the dedicated speech therapy swallowing evaluation report which will be independently generated. Dictated by: Minh aMnzanares M.D. on 10/28/2023 at 10:40 Approved by: Minh Manaznares M.D. on 10/28/2023 at 10:41
--- NOTE | 2023-10-28 11:21 | ST.SWALLOW ---
Visit Care Team Role Provider Type Xin Shultz PA-C Primary Care Provider Advanced Migratory Game Bird Biologist Specialty: Medical Address: [address] [place] [address], [id number] Email: Ledy Coreas PA-C Family Provider Non-Staff Specialty: Medical Address: [address] [place] [address], [facility] Email: [email or web address] Bakari Villalobos MD Attending Provider Physician Referring Provider Specialty: Ear, Nose, Throat Address: [address] [place] [address], [facility] Email: [email or web address] Modified Barium Swallow Study FULFILLMENT COORDINATOR Modified Barium Swallow Study Start: 10/28/23 09:58 Freq: Status: Active Protocol: Document 10/28/23 09:58 LNK (Rec: 10/28/23 11:21 LNK [id number]) Modified Barium Swallow Study Total Time Visit Start Time 09:00 Visit Stop Time 09:30 Total Visit Minutes [address] Elaine Villalobos, ENT Reason for Referral dysphagia; chronic cough Setting Setting Outpatient Care Patient Information Identification Type Name,Date of Patient History Pt was seen for a Modified Barium Swallow Study (MBSS) at the referral of Dr. Villalobos. According to the pt, for the past 16 months, she has had no taste or smell and reports I swallow different. She could not elaborate on her swallowing. Pt denies cough/ choke with solids and/or liquids. She stated that she sometimes has difficulty swallowing large pills. She does report a chronic cough and PND. Pt's PMH included a breast CA, large hiatal hernia, gastropathy and Lazaro's esophagus. On 04/23/22, the pt had an EGD with biopsy. The report noted that during the EGD, the pt had a tendency towards tiny micro aspirations and coughing. MBSS ordered to determine pt's risk for aspiration relative to her cough. Subjective Observations Pt was seated in the fluoroscopy chair with instructions and procedures described for her. Pt indicated she understood and agreed to proceed. Patient Positioning Position View Lat-A/P Imaging Lateral View Textures Administered Trials Presented Thin Liquid via Spoon (IDDSI 0 ),Thin Liquid via Cup (IDDSI 0 ),Extremely Thick Liquid via Spoon (IDDSI 4),Regular (IDDSI 7) Barium Tablet Yes The IDDSI Framework Protocol: IDDSI.1 Oral Impairment Source: The Modified Barium Swallow Impairment Profile (MBSImP??) Lip Closure No labial escape Tongue Control During Bolus Hold Cohesive bolus between tongue to palatal seal Bolus Preparation/Mastication Timely & efficient chewing & mashing Bolus Transport/Lingual Motion Brisk tongue motion Oral Residue Trace residue lining oral structures Location Tongue,Lateral sulci Initiation of Pharyngeal Swallow Bolus head at pyriforms Additional Oral Impairment Observations OME and DKS were observed to be WFL. Dention consisted of upper/lower dentures with the lower denture secured with implants. Mastication demonstrated a rotary chew pattern. Bolus formation, control and AP transition appeared to be WFL. Pharyngeal Impairment Source: The Modified Barium Swallow Impairment Profile (MBSImP??) Soft Palate Elevation No bolus between soft palate & pharyngeal wall Laryngeal Elevation Part.sup.move.thyroid cart/ part.approx.arytenoids to epiglot.petiole Anterior Hyoid Excursion Partial anterior movement Epiglottic Movement Complete inversion Laryngeal Vestibular Closure Complete; no air/contrast in laryngeal vestibule Pharyngeal Stripping Wave Present - diminished Pharyngoesophageal Segment Opening Complete distention & complete duration; no obstruction of flow Tongue Base Retraction Narrow column of contrast/air betwn tongue base & post. pharyngeal wall Pharyngeal Residue Collection of residue within/ on pharyngeal structures Location Diffuse (>3 areas) Additional Pharyngeal Impairment Tongue base weakness Observations negatively impacted hyolaryngeal elevation and movement. Egpiglottic noted to fully invert with laryngeal vestible seal complete. No laryngeal penetration or tracheal aspiration was observed. Stripping of the posterior pharyngeal wall was diminished, which contributed to valecullar pooling of the cookie trial. Three swallows were needed to completly clear the cookie. Overall pharyngeal residue was noted. Given the pt's age, these results are considered WFL. A/P View Textures Administered Trials Presented Thin Liquid via Spoon (IDDSI 0 ),Extremely Thick Liquid via Cup (IDDSI 4) The IDDSI Framework Protocol: IDDSI.1 A/P View Observations Pharyngeal Contraction Complete Esophageal Clearance Upright Position Esophageal retention w/ regtrograde flow below pharyngoesoph segment Vocal Fold Function Good Esophageal Function WFL,Slowed Clearing,Narrowing Additional A-P Observations Initial AP view of the esophagus indicated residual contrast remaining. This was cleared with additional water swallow. The hiatal hernia was noted. Esophagus was observed to clear within a timely manner. An 11mm barium tablet was slow to enter the stomach at GE junction. Results WFL. Clinical Impressions Findings For details of the oral, pharyngeal, and esophageal swallow phases. please recfiew above summaries. The results of the MBSS indicated the pt's swallowing to be WFL. No laryngeal penetration or tracheal aspiration was observed. Patient Appropriate for Therapy No Recommendations Diet Comments No diet changes recommended Aspiration Precautions Additional Precautions Continue GERD precautions
== END ==
PROVIDERS: Family Provider Physician Assistant; PCP Physician Assistant; Referring Provider Otolaryngology; Visit Provider Otolaryngology
DX: R05.3 Chronic cough (principal); R13.10 Dysphagia, unspecified
CPT/HCPCS: 74230; 92611

== ENCOUNTER 2023-12-07 12:13 | Emergency (ER) | payer MEDICARE, SELFPAY ==
[2023-12-07 12:20] VITALS: BP 119/77; PULSE 94; RESP 15; TEMP 36.2; O2SAT 98; BMI 30.1
--- NOTE | 2023-12-07 12:22 | DI.RAD.S_ITS ---
PROCEDURE: XR PELVIS 1-2V INDICATIONS: left leg pain,hx clot,feels similar,left hip pain' TECHNIQUE: 1 view(s) of the pelvis acquired. COMPARISON: None. FINDINGS: Bones: No fractures or dislocations. No suspicious bony lesions. Soft tissues: Visualized bowel gas pattern is normal. No suspicious soft tissue calcifications. IMPRESSION: No acute bony abnormality. Approved by: Chris Avery M.D. on 12/07/2023 at 13:56
--- NOTE | 2023-12-07 12:22 | DI.US.S_ITS ---
PROCEDURE: US PERIP VENOUS LOW EXTREM LT INDICATIONS: left leg pain,hx clot,feels similar,left hip pain' TECHNIQUE: Real-time imaging, as well as color and pulse Doppler interrogation, were performed of the lower extremity deep veins from the inguinal ligament to the popliteal fossa, with documentation of the visualized calf veins. COMPARISON: [facility], [facility] VENOUS LOW EXTREM LT, 11/26/2019, 12:34. FINDINGS: The common femoral, femoral, popliteal, and the visualized calf veins are normally compressible, and free of intraluminal thrombus. Color and pulse Doppler demonstrate normal phasic intraluminal flow. There is normal augmentation response to distal compression maneuver. IMPRESSION: No findings of lower extremity deep venous thrombosis. Approved by: Chris Avery M.D. on 12/07/2023 at 13:19
--- NOTE | 2023-12-07 14:31 | ED_ITS ---
HPI - Extremity Problem <Aniyah Rosales PA-C - Last Filed: 12/07/23 17:57> General Chief complaint: Extremity Problem,Nontraumatic Stated complaint: possible blood clot Time Seen by Provider: 12/07/23 12:19 Source: patient Mode of arrival: Ambulatory History of Present Illness HPI Narrative: 88-year-old female here today for left lower leg pain that started yesterday. She has a history of a DVT in her left leg so she got concerned and came in today. States the pain is located in her posterior knee and calf and she feels some pain in her thigh and left hip as well. She denies redness, swelling, warmth, fevers. Hurts to walk. She does have a puppy at home and is very busy taking care of the puppy but she has no known injury that she can recall. She has not tried any medications so far for the pain. States she has had 2 knee replacements on the left side in the past and she does have flare-ups of pain every now and then. No shortness breath, chest pain, wheezing. Related Data Home Medications Medication Instructions Recorded Confirmed losartan 50 mg tablet 50 mg PO DAILY 09/11/18 08/20/22 pantoprazole 40 mg tablet,delayed 40 mg PO DAILY 08/03/21 08/20/22 release cholecalciferol (vitamin D3) 50 50 mcg PO DAILY 04/23/22 08/20/22 mcg (2,000 unit) capsule (Vitamin D3) guar gum 1 packet PO DAILY 04/23/22 08/20/22 levothyroxine 75 mcg tablet 75 mcg PO DAILY 04/23/22 08/20/22 polyethylene glycol 3350 17 gram 17 g PO DAILY 04/23/22 08/20/22 oral powder packet (Miralax) Previous Rx's Medication Instructions Recorded Glucose: Home Monitor / ##1 12/09/17 Glucose: Test Strips str TID ##100 12/09/17 Lancet: Device u ##100 12/09/17 lidocaine HCl 2 % mucosal solution 1 applic mucous membrane QID PRN 05/27/22 mouth pain #200 mL loratadine 10 mg tablet (Claritin) 10 mg PO DAILY PRN allergic 05/27/22 symptoms #30 tabs Allergies Allergy/AdvReac Type Severity Reaction Status Date / Time amoxicillin [AMOXICILLIN] Allergy Intermediate RASH Verified 12/07/23 12:19 ciprofloxacin [CIPROFLOXACIN] Allergy Intermediate RASH Verified 12/07/23 12:19 codeine [CODEINE] Allergy Intermediate RASH Verified 12/07/23 12:19 vancomycin [VANCOMYCIN] Allergy Intermediate RASH Verified 12/07/23 12:19 ciprofibrate Allergy Unknown Hives Verified 12/07/23 12:19 cortisone Allergy Unknown Hives Verified 12/07/23 12:19 Review of Systems <Aniyah Rosales PA-C - Last Filed: 12/07/23 17:57> Review of Systems ROS Unobtainable: All systems reviewed & are unremarkable except as noted in HPI and below Patient History <Aniyah Rosales PA-C - Last Filed: 12/07/23 17:57> Medical History Lazaro's esophagus Breast cancer Epigastric pain Hard of hearing Hypertension Hypertriglyceridemia Hypothyroidism Insomnia Neck pain Nocturnal hypoxemia Osteopenia Plantar fasciitis Trochanteric bursitis Type 2 diabetes mellitus Venous thromboembolism (VTE) of lower extremity Surgical History History of knee replacement, total Status post hysterectomy Status post laparoscopic cholecystectomy Social History household members: none Smoking Status: Never smoker alcohol intake: never Smoking Status: Never smoker alcohol intake frequency: holidays/special occasions only Substance Use Type: does not use Exam <Aniyah Rosales PA-C - Last Filed: 12/07/23 17:57> Narrative Exam Narrative: GENERAL: Well-developed, well-nourished, appears stated age. In no acute distress HEAD: Atraumatic. Normocephalic. EYES: Pupils equal round and reactive. Extraocular motions intact. No scleral icterus. No injection or drainage. ENT: Nose without bleeding, purulent drainage. Airway patent. NECK: Trachea midline. Non tender RESPIRATORY: Respiratory rate and effort normal EXTREMITIES: No edema or joint tenderness. Left lower leg exam reveals a large scar on the knee from knee replacement. Otherwise no obvious abnormalities. No swelling, redness, warmth. Mild tenderness to palpation of the left posterior calf and posterior knee, and anterior knee. Full range of motion of the knee and no ligamentous laxity or palpable effusion. Able to ambulate independently. No hip tenderness or range of motion deficits NEURO: AOx3. SKIN: No rash or erythema of visible areas Initial Vital Signs Initial Vital Signs: Vital Signs Temperature 97.1 F L 12/07/23 12:20 Pulse Rate 94 H 12/07/23 12:20 Respiratory Rate 15 12/07/23 12:20 Blood Pressure 119/77 12/07/23 12:20 Pulse Oximetry 98 12/07/23 12:20 Oxygen Delivery Method Room Air 12/07/23 12:20 <Vanita Metzger MD - Last Filed: 12/07/23 18:24> Initial Vital Signs Initial Vital Signs: Vital Signs Temperature 97.1 F L 12/07/23 12:20 Pulse Rate 94 H 12/07/23 12:20 Respiratory Rate 15 12/07/23 12:20 Blood Pressure 119/77 12/07/23 12:20 Pulse Oximetry 98 12/07/23 12:20 Oxygen Delivery Method Room Air 12/07/23 12:20 Course <Aniyah Rosales PA-C - Last Filed: 12/07/23 17:57> Orders Ordered: ED Orders 12/07/23 12:22 US periph venous low extrem lt Stat XR pelvis 1-2V Stat Vital Signs Vital signs: Vital Signs - 8 hr 12/07/23 12:20 12/07/23 15:00 Temperature 97.1 F L Pulse Rate 94 H Respiratory Rate 15 18 Blood Pressure 119/77 162/76 H Pulse Oximetry 98 95 Oxygen Delivery Method Room Air Room Air <Vanita Metzger MD - Last Filed: 12/07/23 18:24> Orders Ordered: ED Orders 12/07/23 12:22 US periph venous low extrem lt Stat XR pelvis 1-2V Stat Vital Signs Vital signs: Vital Signs - 8 hr 12/07/23 12:20 12/07/23 15:00 Temperature 97.1 F L Pulse Rate 94 H Respiratory Rate 15 18 Blood Pressure 119/77 162/76 H Pulse Oximetry 98 95 Oxygen Delivery Method Room Air Room Air MDM - Extremity (Nontraumatic) <Aniyah Rosales PA-C - Last Filed: 12/07/23 17:57> Imaging Data US - DVT: Radiologist's Impression: [address] [address] Ultrasound Report Signed Patient: Aniyah Castillo MR#: [id number] : 1935 Acct:[id number] Age/Sex: 88 / F Date of Service: 12/07/23 Loc: ED Accession Number: [id number] Procedure: US perip venous low extrem lt Ordering Provider: Vanita Metzger MD PROCEDURE: US PERIP VENOUS LOW EXTREM LT INDICATIONS: left leg pain,hx clot,feels similar,left hip pain' TECHNIQUE: Real-time imaging, as well as color and pulse Doppler interrogation, were performed of the lower extremity deep veins from the inguinal ligament to the popliteal fossa, with documentation of the visualized calf veins. [facility] PERIP VENOUS LOW EXTREM LT, 11/26/2019, 12:34. FINDINGS: The common femoral, femoral, popliteal, and the visualized calf veins are normally compressible, and free of intraluminal thrombus. Color and pulse Doppler demonstrate normal phasic intraluminal flow. There is normal augmentation response to distal compression maneuver. IMPRESSION: No findings of lower extremity deep venous thrombosis. Approved by: Chris Avery M.D. on 12/07/2023 at 13:19 hip xray : Radiologist's Impression: [facility] [address] [place] [id number] XRay Report Signed Patient: Aniyah Castillo MR#: [id number] : 1935 Acct:[id number] Age/Sex: 88 / F Date of Service: 12/07/23 Loc: ED Accession Number: [id number] Procedure: XR pelvis 1-2V Ordering Provider: Vanita Metzger MD PROCEDURE: XR PELVIS 1-2V INDICATIONS: left leg pain,hx clot,feels similar,left hip pain' TECHNIQUE: 1 view(s) of the pelvis acquired. COMPARISON: None. FINDINGS: Bones: No fractures or dislocations. No suspicious bony lesions. Soft tissues: Visualized bowel gas pattern is normal. No suspicious soft tissue calcifications. IMPRESSION: No acute bony abnormality. Approved by: Chris Avery M.D. on 12/07/2023 at 13:56 MDM Narrative Medical decision making narrative: Patient presented with left lower extremity pain with a history of DVT in the left leg. She also has a history of 2 knee replacements in the left knee. She has mild tenderness to palpation of the left calf and anterior and posterior knee but otherwise no redness, warmth, swelling of the left lower extremity. Ultrasound was negative for DVT. Pelvic x-ray was ordered because patient was complaining of hip pain in triage and this was negative as well. Patient's exam was benign with no findings consistent with infection or other urgent etiology. She is ambulating has full range of motion of the left knee and hip. After finding out her ultrasound and x-ray were negative she was pretty eager to be discharged home. Vital signs stable. I believe she is probably having flare-up of osteoarthritis or she may have strained her lower leg taking care of her puppy. Recommend either ibuprofen or topical diclofenac, icing, resting. Follow up with PCP if not improving. ER precautions discussed Discharge Plan Departure Patient Disposition: Home Clinical Impression: Acute pain of left lower extremity Instructions: DI for Osteoarthritis, Certain Exercises May Help People with Knee Osteoarthritis Activity Restrictions/Additional Instructions: You were seen today for left lower leg pain. We did an ultrasound which showed no sign of a blood clot and we also did a hip x-ray which was normal. With the location of your pain being around and near your knee as well I suspect that you are having a flare-up of arthritis or perhaps you slightly injured the leg without realizing it. Either way there is no sign of anything dangerous or ur gent at this time. You have no sign of infection. Please take ibuprofen 600 mg every 6-8 hours for 3-5 days OR you may purchase Voltaren gel [id number] and use that for treatment instead. You may also ice the area multiple times a day. Please rest and elevate the area. If you are not improving within 1 week please follow up with her primary care physician. If you are starting to worsen with significant redness, swelling, warmth of the leg please return to the emergency department. Prescriptions: No Action Glucose: Home Monitor Qty: 1 0RF Glucose: Test Strips TID Qty: 100 0RF Lancet: Device Qty: 100 0RF losartan 50 mg Tablet 50 mg PO DAILY polyethylene glycol 3350 [Miralax] 17 gram Powder In Packet 17 g PO DAILY guar gum Packet 1 packet PO DAILY levothyroxine 75 mcg tablet 75 mcg PO DAILY cholecalciferol (vitamin D3) [Vitamin D3] 50 mcg (2,000 unit) Capsule 50 mcg PO DAILY pantoprazole 40 mg Tablet,Delayed Release (Dr/Ec) 40 mg PO DAILY loratadine [Claritin] 10 mg tablet 10 mg PO DAILY PRN (Reason: allergic symptoms) Qty: 30 0RF lidocaine HCl 2 % solution 1 applic mucous membrane QID PRN (Reason: mouth pain) Qty: 200 0RF Referrals: Xin Shultz PA-C [Primary Care Provider] - Stand Alone Forms: Patient Portal/API ED Sign-out <Vanita Metzger MD - Last Filed: 12/07/23 18:24> Cosign ED Attending Coselyseature Attestation: I did not see this patient. I was available all times for consultation.
[2023-12-07 15:00] VITALS: BP 162/76; RESP 18; O2SAT 95
== END 2023-12-07 15:50 | disposition home or self-care (01) ==
PROVIDERS: Emergency Provider Physician Assistant; Family Provider Physician Assistant; PCP Physician Assistant
DX: M79.662 Pain in left lower leg (principal); Z86.718 Personal history of other venous thrombosis and embolism
CPT/HCPCS: 72170; 93971; 99281; 99283

== ENCOUNTER → 2024-01-18 11:54 | Outpatient (CLI) | payer MEDICARE, SELFPAY ==
[2024-01-18 12:05] LABS: Appearance Urine UA SL CLOUDY; Bilirubin Urine UA NEGATIVE (NEGATIVE); Color Urine UA YELLOW; Glucose Urine UA NEGATIVE (Negative); Ketones Urine UA NEGATIVE (NEGATIVE); Leukocyte Esterase Urine UA 3+ (NEGATIVE); Nitrite Urine UA POSITIVE (Negative); Occult Blood Urine UA 2+ (Negative); Protein Urine UA TRACE (Negative); Specific Gravity Urine UA 1.015 (1.000-1.035); Urobilinogen Urine UA 0.2 E.U./dL (0.2); pH Urine UA 5.5 (4.5-8.0)
[2024-01-18 12:10] LABS: Bacteria Urine Many (>30); RBC Urine 1-5/HPF (0-5/HPF); Squamous Epithelial Cell Urine 1-5 /HPF (0-5/HPF); Urine Volume 10mL (spun); WBC Urine 30-100/HPF (0-5/HPF)
== END ==
PROVIDERS: Family Provider Physician Assistant; PCP Physician Assistant; Visit Provider Physician Assistant
DX: N39.0 Urinary tract infection, site not specified (principal); R39.15 Urgency of urination
CPT/HCPCS: 81001; 87077; 87086; 87186

== ENCOUNTER → 2024-01-27 13:38 | Outpatient (CLI) | payer MEDICARE, SELFPAY | PROVIDERS: Family Provider Physician Assistant; PCP Physician Assistant; Visit Provider Physician Assistant | DX: R30.0 Dysuria (principal) | CPT/HCPCS: 87086; 87186 ==

== ENCOUNTER → 2024-01-31 14:31 | Outpatient (CLI) | payer MEDICARE, SELFPAY ==
[2024-02-03 14:32] LABS: Candida species Negative (Negative); Gardnerella vaginalis Negative (Negative); Trichomoas vaginalis Negative (Negative)
== END ==
PROVIDERS: Family Provider Physician Assistant; PCP Physician Assistant; Visit Provider Student in an Organized Health Care Education/Training Program
DX: R10.2 Pelvic and perineal pain (principal)
CPT/HCPCS: 87480; 87510; 87660

== ENCOUNTER → 2024-02-15 07:39 | Outpatient (CLI) | payer MEDICARE, SELFPAY | PROVIDERS: Family Provider Physician Assistant; PCP Physician Assistant; Visit Provider Nurse Practitioner Family | DX: R30.0 Dysuria (principal); N94.9 Unspecified condition associated with female genital organs and menstrual cycle | CPT/HCPCS: 87077; 87086; 87186; 87210 ==

== ENCOUNTER → 2024-03-02 10:49 | Outpatient (CLI) | payer MEDICARE, SELFPAY ==
[2024-03-02 11:24] LABS: Appearance Urine UA SL CLOUDY; Bilirubin Urine UA NEGATIVE (NEGATIVE); Color Urine UA YELLOW; Glucose Urine UA NEGATIVE (Negative); Ketones Urine UA NEGATIVE (NEGATIVE); Leukocyte Esterase Urine UA 3+ (NEGATIVE); Nitrite Urine UA NEGATIVE (Negative); Occult Blood Urine UA NEGATIVE (Negative); Protein Urine UA NEGATIVE (Negative); Specific Gravity Urine UA <=1.005 (1.000-1.035); Urobilinogen Urine UA 0.2 E.U./dL (0.2)
[2024-03-02 11:37] LABS: Bacteria Urine None Seen; RBC Urine None Seen (0-5/HPF); Squamous Epithelial Cell Urine 5-10 /HPF (0-5/HPF); Urine Volume 10mL (spun); WBC Urine 10-30/HPF (0-5/HPF)
[2024-03-02 11:38] LABS: Culture Indicated Urine Specimen Cultured
== END ==
LOC: LAB 10:53
PROVIDERS: Family Provider Physician Assistant; PCP Physician Assistant; Referring Provider Student in an Organized Health Care Education/Training Program; Visit Provider Student in an Organized Health Care Education/Training Program
DX: Z87.440 Personal history of urinary (tract) infections (principal)
CPT/HCPCS: 81001; 87086

== ENCOUNTER → 2024-06-10 10:23 | Outpatient (CLI) | payer MEDICARE, SELFPAY ==
--- NOTE | 2024-06-10 10:26 | DI.RAD.S_ITS ---
PROCEDURE: XR CHEST 2V INDICATIONS: COUGH TECHNIQUE: 2 views of the chest were acquired. COMPARISON: [facility], CR, XR CHEST 2V, 09/17/2022, 11:39. FINDINGS: Surgical changes and devices: Surgical clip in the left breast. Lungs and pleura: Lungs are clear. No pleural effusions or pneumothorax. Mediastinum: Mediastinal contours are normal. Heart size is normal. There is calcification and tortuosity in the aorta.. Aneurysmal due the patient noted the descending aorta where it measures 4.9 cm in diameter. This has increased from the study of of 09/17/2022 when measured 4.4 cm. Bones and chest wall: No suspicious bony abnormalities. There is a mild increase in the kyphotic curve of the thoracic spine. Soft tissues appear unremarkable. IMPRESSION: No acute cardiopulmonary disease seen. 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 Dictated by: Lie Quiroga M.D. on 06/10/2024 at 11:31 Approved by: Lei Quiroga M.D. on 06/10/2024 at 11:38
== END ==
PROVIDERS: Family Provider Physician Assistant; PCP Physician Assistant; Referring Provider Physician Assistant; Visit Provider Physician Assistant
DX: I71.23 Aneurysm of the descending thoracic aorta, without rupture (principal); R05.9 Cough, unspecified
CPT/HCPCS: 71046

== ENCOUNTER → 2024-06-23 10:09 | Outpatient (CLI) | payer MEDICARE, SELFPAY ==
[2024-06-23 10:54] LABS: Estimated Glomerular Filt Rate 49 mL/min (>60)
--- NOTE | 2024-06-23 11:19 | DI.CT.S_ITS ---
PROCEDURE: CT ANGIO CHEST ABDOMEN PELVIS INDICATIONS: ANEURYSM OF DESCENDING THORACIC AORTA TECHNIQUE: Precontrast 5 mm thick sections acquired from the lung apices to the iliac crests. After the administration of intravenous contrast, 2.5 mm thick sections again acquired from the lung apices to the iliac crests. Maximum intensity projection (MIP) oblique sagittal and coronal reformats were then acquired. For radiation dose reduction, the following was used: automated exposure control. COMPARISON: [facility], CT, CT ABDOMEN PELVIS W CON, 06/20/2021, 14:32. Is better FINDINGS: Image quality: Diagnostic. AORTA: No aortic aneurysm. No aortic dissection or penetrating atherosclerotic ulcer. Ascending thoracic aorta is normal in caliber measuring 3.6 x 3.5 cm at the level of main pulmonary artery. Mild calcification of the thoracic aorta. CHEST: Lower Neck: No enlarged lymph nodes. Thyroid: Enhancing left nodule measuring 1.5 x 1.3 cm (03/09). Axillae: No enlarged lymph nodes. Chest Wall: Query left breast skin thickening. Lungs and Pleura: No pneumothorax or pleural effusions. No consolidation or suspicious nodules. Heart: Heart size is normal. No pericardial effusion. Mild LAD coronary vessel calcification. Thoracic Vessels: Pulmonary arteries demonstrate normal size. Mediastinum and Christie: No enlarged lymph nodes. Esophagus: No wall thickening. Small hiatal hernia. ABDOMEN: Liver: No solid mass. Left hepatic lobe simple cyst. Gallbladder: Absent. Biliary ducts: No biliary dilation. Pancreas: No ductal dilation. Spleen: Size is within normal limits. Adrenal Glands: No adrenal nodules. Kidneys and Ureters: No hydronephrosis. No solid mass. Multiple bilateral renal simple cysts. No complex renal cystic lesion which requires follow up. Stomach and Bowel: Normal colonic caliber, without significant wall thickening. Extensive sigmoid and scattered colonic diverticulosis without diverticulitis. Peritoneum: No abnormal intraperitoneal fluid. No free air. Ventral Wall: Tiny umbilical fat containing hernia. Abdominal Nodes: No retroperitoneal or mesenteric adenopathy by size criteria. Vessels: Inferior vena cava is normal in size. Moderate calcification of the thoracic aorta. PELVIS: Pelvic Organs: Hysterectomy. Bladder: Unremarkable. Pelvic Nodes: No enlarged lymph nodes. Miscellaneous: No inguinal hernias are seen. Bones: No acute fracture. Multilevel degenerative changes of the spine. IMPRESSION: 1. Thoracic and abdominal aorta is normal in caliber without aneurysm or dissection. Scattered atherosclerotic disease. 2. Colonic diverticulosis, without diverticulitis. 3. Enhancing left thyroid nodule measuring 1.5 x 1.3. Recommend a thyroid ultrasound for further evaluation. 4. Query left breast skin thickening. Correlate with physical exam and mammography. Dictated by: Ryley Lopes M.D. on 06/23/2024 at 15:58 Approved by: Ryley Lopes M.D. on 06/23/2024 at 16:15
== END ==
PROVIDERS: Radiology Diagnostic Radiology; Family Provider Physician Assistant; PCP Physician Assistant; Referring Provider Physician Assistant; Visit Provider Physician Assistant
DX: I71.23 Aneurysm of the descending thoracic aorta, without rupture (principal); I70.0 Atherosclerosis of aorta; R10.13 Epigastric pain; E04.1 Nontoxic single thyroid nodule; I25.10 Atherosclerotic heart disease of native coronary artery without angina pectoris; K44.9 Diaphragmatic hernia without obstruction or gangrene; K76.89 Other specified diseases of liver; N28.1 Cyst of kidney, acquired; K57.30 Diverticulosis of large intestine without perforation or abscess without bleeding; N64.89 Other specified disorders of breast; Z90.49 Acquired absence of other specified parts of digestive tract; Z90.710 Acquired absence of both cervix and uterus
CPT/HCPCS: 36415; 71275; 74174; 82565; Q9967

== ENCOUNTER → 2024-08-06 10:59 | Outpatient (CLI) | payer MEDICARE, SELFPAY ==
--- NOTE | 2024-08-06 11:00 | DI.MG.S_ITS ---
BILATERAL DIGITAL SCREENING MAMMOGRAM 3D/2D WITH CAD POST LUMPECTOMY: 08/06/2024 CLINICAL: Routine screening. Personal history of left breast cancer. Comparison is made to exams dated: 07/19/2023 mammogram, 07/18/2022 mammogram, and 07/17/2021 mammogram - [facility]. There are scattered areas of fibroglandular density (category b / 25%-50% glandular tissue). Current study was also evaluated with a Computer Aided Detection (CAD) system. There is a benign area of fat necrosis in the left breast. There also are benign vascular calcifications in both breasts. Additionally, there are benign post operative findings in the left breast. No significant masses, calcifications, or other findings are seen in either breast. There has been no significant interval change. IMPRESSION: BENIGN There is no mammographic evidence of malignancy. A 1 year screening mammogram is recommended. This exam was interpreted at Station ID: [id number]. NOTE: For mammograms, a report in lay terms will be sent to the patient. Approximately 15% of breast malignancies will not be visualized mammographically. In the management of a palpable breast mass, a negative mammogram must not discourage biopsy of a clinically suspicious lesion. Electronically Signed By: Krystina son/sheree:08/06/2024 17:06:43 copy to: OTONIEL DOSHI copy to: ANNIE MARIE letter sent: Normal Exam ACR BI-RADS Category 2: Benign
== END ==
LOC: MAMMO 11:00
PROVIDERS: Family Provider Physician Assistant; PCP Physician Assistant; Referring Provider Physician Assistant; Visit Provider Physician Assistant
DX: Z12.31 Encounter for screening mammogram for malignant neoplasm of breast (principal); Z85.3 Personal history of malignant neoplasm of breast
CPT/HCPCS: 77063; 77067

== ENCOUNTER → 2024-08-10 09:01 | Outpatient (CLI) | payer MEDICARE, SELFPAY ==
--- NOTE | 2024-08-10 09:02 | DI.US.S_ITS ---
PROCEDURE: US THYROID INDICATIONS: ENCHANING L THYROID NODULE NOTED ON CT SCAN TECHNIQUE: Real-time scanning was performed of the thyroid gland, with image documentation. COMPARISON: [facility], CT, CT ANGIO CHEST ABDOMEN PELVIS, 06/23/2024, 11:16. FINDINGS: Thyroid: Right lobe measures 2.6 x 1.5 x 1.2 cm. Left lobe measures 3.5 x 1.9 x 1.8 cm. Isthmus is 0.4 cm thick. Echotexture is heterogenous. Nodule number: 1 Location: Left superior Size: 1.8 x 1.6 x 1.3 cm. Composition: Solid Echogenicity: Isoechoic Shape: wider than tall. Margins: Irregular Echogenic foci: None Total points: 4 ACR TI-RADS category: 4 IMPRESSION: Category 4 thyroid nodule. ACR guidelines recommend FNA evaluation ACR TI-RADS definitions and recommendations: TI-RADS 1 (benign): 0 points. FNA not needed. TI-RADS 2 (not suspicious): 2 points. FNA not needed. TI-RADS 3 (mildly suspicious): 3 points. * FNA if 2.5 cm or larger, follow up if 1.5 cm or larger (at 1, 3, and 5 years). TI-RADS 4 (moderately suspicious): 4-6 points. * FNA if 1.5 cm or larger, follow up if 1 cm or larger (at 1, 2, 3, and 5 years). TI-RADS 5 (highly suspicious): 7 points or more. * FNA if 1 cm or larger, follow up if 0.5 cm or larger (every year for 5 years). 1. Dictated by: Chris Avery M.D. on 08/10/2024 at 17:26 Approved by: Chris Avery M.D. on 08/10/2024 at 17:31
== END ==
PROVIDERS: Family Provider Physician Assistant; PCP Physician Assistant; Referring Provider Physician Assistant; Visit Provider Physician Assistant
DX: E04.1 Nontoxic single thyroid nodule (principal)
CPT/HCPCS: 76536

== ENCOUNTER → 2024-09-09 09:44 | Outpatient (CLI) | payer MEDICARE, SELFPAY ==
--- NOTE | 2024-09-09 | PATH_ITS ---
Note [facility] Accession Number: [id number] TESTS RESULT FLAG UNITS REF RANGE LAB Clinician Provided Cytology Information No. of containers..01 Other (Miscellaneous) No. of containers..02 Previously Prepared Cytology Slide Source: LEFT THYROID NODULE # 1 DIAGNOSIS: LEFT THYROID NODULE # 1, FINE NEEDLE ASPIRATION. NEGATIVE FOR MALIGNANT CELLS. ADEQUATE FOR EVALUATION. COLLOID AND FOLLICULAR GROUPS ARE PRESENT. BENIGN FOLLICULAR (GOITEROUS) NODULE (B[place]ESDA CATEGORY II), SEE COMMENT. COMMENT: MICROSCOPIC EXAMINATION REVEALS A MILDLY CELLULAR ASPIRATE, COMPOSED OF COLLOID, FOLLICULAR GROUPS WITH FOCAL HURTHLE CELL CHANGES, WITHOUT SIGNIFICANT CYTOLOGIC OR ARCHITECTURAL ATYPIA, AND FEW BACKGROUND MACROPHAGES. THESE FINDINGS SUPPORT A BENIGN FOLLICULAR (GOITEROUS) NODULE. CORRELATION WITH CLINICAL AND RADIOGRAPHIC FINDINGS IS RECOMMENDED. ACCORDING TO THE [place] REPORTING SYSTEM FOR THYROID CYTOPATHOLOGY, THE RISK OF MALIGNANCY IN THE CATEGORY BENIGN-CATEGORY II IS 0-3%; THEREFORE RECOMMEND CONTINUED ULTRASOUND SURVEILLANCE WITH REPEAT FNA IF THE NODULE SIGNIFICANTLY INCREASES IN SIZE. Pathologist ICD10: E04.1 Signed out by: García Osorio MD, Pathologist NPI- [id number] Performed by: Ethan Chung, Vehicle Operator Technician ([facility]) Gross description: 30 CC, COLORLESS, CLEAR RECIEVED: IN CYTOLYT WITH 6 ALCOHOL FIXED AND 6 QUICK STAINED SLIDES ALSO 1 RNA VIAL WILL ON 11-26-2024.VO /VDU 09/10/2024 0849 Local FLAG LEGEND: L-Low Normal,H-High Normal,LL-Alert Low,HH-Alert High <-Panic Low,>-Panic High,A-Abnormal,AA-Critical Abnormal Performed at: [address] [facility] [address], [place] [address] Junior Watkins MD, Performed at: [address] [facility] [address], [place], [place] [id number] MD Junior Watkins MD Phone: [phone]
--- NOTE | 2024-09-09 | DI.US.S_ITS ---
PROCEDURE: US FINE NEEDLE ASPIRATION INDICATIONS: Nontoxic single thyroid nodule TECHNIQUE: The indications, alternatives, benefits, risks, and complications of the procedure were explained to the patient. Written informed consent was obtained and placed in the chart. The thyroid region was examined sonographically and a site was chosen for ultrasound guided percutaneous sampling. The skin was prepared and draped in the usual fashion, and anesthetized with 1% lidocaine infiltrated from the skin down to the thyroid gland. Multiple passes were then performed, with contents emptied into an appropriate pathology specimen container. A bandage was applied to the area of access at completion of the study. COMPARISON: [facility], THYROID, 08/10/2024, 9:32. FINDINGS: Location(s) of lesion(s) sampled: Left superior lobe nodule #1. [place]: 25 gauge hypodermic needles. Number of passes: 6 Medications: 1% lidocaine for local anaesthesia. Complications: None. IMPRESSION: Successful ultrasound-guided thyroid nodule fine needle aspiration, with cytology results pending. Dictated by: Remberto Silveira M.D. on 09/09/2024 at 12:24 Approved by: Remberto Silveira M.D. on 09/09/2024 at 12:25
== END ==
PROVIDERS: Family Provider Physician Assistant; PCP Physician Assistant; Referring Provider Otolaryngology; Visit Provider Otolaryngology
DX: E04.1 Nontoxic single thyroid nodule (principal)
CPT/HCPCS: 10005

== ENCOUNTER → 2024-12-30 12:57 | Outpatient (CLI) | payer MEDICARE, SELFPAY ==
--- NOTE | 2024-12-30 12:59 | DI.RAD.S_ITS ---
PROCEDURE: XR CHEST 2V INDICATIONS: COUGH TECHNIQUE: 2 views of the chest were acquired. COMPARISON: [facility], CR, XR CHEST 2V, 06/10/2024, 10:27. FINDINGS: Heart, mediastinum and pulmonary vascular: Heart is normal in size and configuration. Mediastinum is unremarkable. Pulmonary vascular is normal. Lungs: Clear Pleural spaces: Normal-no effusions or pneumothorax. Bones and soft tissues: Mild scoliosis noted IMPRESSION: No cardiopulmonary disease Dictated by: Jose Costa M.D. on 12/31/2024 at 13:06 Approved by: Jose Costa M.D. on 12/31/2024 at 13:07
== END ==
PROVIDERS: Family Provider Physician Assistant; PCP Physician Assistant; Referring Provider Physician Assistant; Visit Provider Physician Assistant
DX: R05.9 Cough, unspecified (principal)
CPT/HCPCS: 71046

== ENCOUNTER → 2025-01-12 11:14 | Outpatient (CLI) | payer MEDICARE, SELFPAY ==
--- NOTE | 2025-01-12 11:16 | DI.US.S_ITS ---
PROCEDURE: US PERIP VENOUS LOW EXTREM LT INDICATIONS: LEFT POPLITEAL PAIN TECHNIQUE: Real-time imaging, as well as color and pulse Doppler interrogation, were performed of the lower extremity deep veins from the inguinal ligament to the popliteal fossa, with documentation of the visualized calf veins. COMPARISON: [facility], , [facility] VENOUS LOW EXTREM LT, 12/07/2023, 13:18. FINDINGS: The common femoral, femoral, popliteal, and the visualized calf veins are normally compressible, and free of intraluminal thrombus. Color and pulse Doppler demonstrate normal phasic intraluminal flow. There is normal augmentation response to distal compression maneuver. IMPRESSION: No findings of lower extremity deep venous thrombosis. Dictated by: Kendal Son M.D. on 01/12/2025 at 12:17 Approved by: Kendal Son M.D. on 01/12/2025 at 12:17
== END ==
PROVIDERS: Family Provider Physician Assistant; PCP Physician Assistant; Referring Provider Family Medicine; Visit Provider Family Medicine
DX: M79.605 Pain in left leg (principal)
CPT/HCPCS: 93971

== ENCOUNTER → 2025-01-20 11:08 | Outpatient (CLI) | payer MEDICARE, SELFPAY | PROVIDERS: Family Provider Physician Assistant; PCP Physician Assistant; Visit Provider Physician Assistant | DX: R30.0 Dysuria (principal) | CPT/HCPCS: 87077; 87086; 87186 ==

== ENCOUNTER → 2025-01-28 08:41 | Outpatient (CLI) | payer MEDICARE, SELFPAY | PROVIDERS: Family Provider Physician Assistant; PCP Physician Assistant; Referring Provider Internal Medicine Critical Care Medicine; Visit Provider Internal Medicine Critical Care Medicine | DX: R05.3 Chronic cough (principal); Z86.16 Personal history of COVID-19; R94.2 Abnormal results of pulmonary function studies | CPT/HCPCS: 94060; 94726; 94729 ==

== ENCOUNTER → 2025-06-21 15:10 | Outpatient (CLI) | payer MEDICARE, SELFPAY | PROVIDERS: PCP Physician Assistant; Referring Provider Physician Assistant; Visit Provider Nurse Practitioner Psychiatric/Mental Health | DX: R35.0 Frequency of micturition (principal) | CPT/HCPCS: 87077; 87086; 87186 ==

== ENCOUNTER → 2025-08-03 11:08 | Outpatient (CLI) | payer MEDICARE, SELFPAY ==
[2025-08-03 11:46] LABS: Appearance Urine UA CLEAR; Bilirubin Urine UA NEGATIVE (NEGATIVE); Color Urine UA YELLOW; Glucose Urine UA NEGATIVE (Negative); Ketones Urine UA NEGATIVE (NEGATIVE); Leukocyte Esterase Urine UA 2+ (NEGATIVE); Nitrite Urine UA NEGATIVE (Negative); Occult Blood Urine UA NEGATIVE (Negative); Protein Urine UA NEGATIVE (Negative); Specific Gravity Urine UA 1.010 (1.000-1.035); Urobilinogen Urine UA 1.0 E.U./dL (0.2)
[2025-08-03 11:54] LABS: pH Urine UA 6.0 (4.5-8.0)
[2025-08-03 11:55] LABS: Culture Indicated Urine Specimen Cultured
== END ==
PROVIDERS: PCP Physician Assistant; Referring Provider Student in an Organized Health Care Education/Training Program; Visit Provider Student in an Organized Health Care Education/Training Program
DX: R35.0 Frequency of micturition (principal); L90.0 Lichen sclerosus et atrophicus
CPT/HCPCS: 81001; 87077; 87086

== ENCOUNTER → 2025-08-09 10:43 | Outpatient (CLI) | payer MEDICARE, SELFPAY ==
--- NOTE | 2025-08-09 10:48 | DI.MG.S_ITS ---
MM screening mammo BI: 08/09/2025. BI-RADS: 2 CLINICAL: 89-year old female for bilateral screening mammogram. No Tyrer-Cuzick risk score calculation due to the patient's personal history of breast cancer. Patient reports a history of left breast carcinoma diagnosed at age 79. Status-post left lumpectomy with chemotherapy and hormonal therapy. No first-degree family history of breast cancer. The patient had a prior left breast biopsy. PRIOR EXAMS: 08/06/2024, 07/19/2023, 07/18/2022, 07/17/2021, 07/08/2020, 07/06/2019. MAMMOGRAPHY TECHNIQUE: 2D and 3D (tomosynthesis) digital mammographic views obtained, with additional images as needed for full coverage. Current study was also evaluated with a Computer Aided Detection (CAD) system. DENSITY B. There are scattered areas of fibroglandular density. MAMMOGRAPHY FINDINGS Right: No suspicious mass, asymmetry, microcalcification, or other abnormality seen. Left: Benign-appearing post-surgical changes noted on the left. There are no suspicious masses, calcifications, or other findings in the breast. IMPRESSION: Right * No evidence of malignancy. Left * No evidence of malignancy with benign findings. RECOMMENDATIONS Bilateral * Annual screening mammography. OVERALL ASSESSMENT CATEGORY BI-RADS-2: Benign. The [employer] recommends annual screening mammography beginning at age 40 for women with average risk of breast cancer. ELECTRONICALLY SIGNED: Aida Braga M.D. on 08/09/2025 at 06:10:50 PM PT Interpreting Station ID: [id number]
== END ==
LOC: MAMMO 10:47
PROVIDERS: PCP Physician Assistant; Referring Provider Physician Assistant; Visit Provider Physician Assistant
DX: Z12.31 Encounter for screening mammogram for malignant neoplasm of breast (principal); Z85.3 Personal history of malignant neoplasm of breast
CPT/HCPCS: 77063; 77067

== ENCOUNTER → 2025-08-17 15:39 | Outpatient (CLI) | payer MEDICARE, SELFPAY ==
[2025-08-19 13:41] LABS: Trichomoas vaginalis Negative (Negative)
== END ==
PROVIDERS: PCP Physician Assistant; Visit Provider Obstetrics & Gynecology
DX: N90.89 Other specified noninflammatory disorders of vulva and perineum (principal); B37.31 Acute candidiasis of vulva and vagina
CPT/HCPCS: 81514

== ENCOUNTER 2025-09-06 10:58 | Emergency (ER) | payer MEDICARE, SELFPAY ==
[2025-09-06 11:05] VITALS: BP 164/77; PULSE 75; RESP 18; TEMP 36.4; O2SAT 99; BMI 29.2
--- NOTE | 2025-09-06 11:40 | EKG_ITS ---
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
[2025-09-06 12:01] LABS: Add Manual Diff / Slide Review NO; Hematocrit 42.1 % (36-46); Hemoglobin 14.1 g/dL (12.0-16.0); Lymphocytes Absolute Auto 1500 /uL (1100-4500); Mean Corpuscular HGB Conc 33.5 % (30-36); Mean Corpuscular Hemoglobin 30.1 PG (26-34); Mean Corpuscular Volume 90.1 fL (80-100); Platelet Count 208 X10^3/uL (150-400)
[2025-09-06 12:07] LABS: Alanine Aminotransferase 15 IU/L (<35); Albumin 4.3 g/dL (3.5-5.0); Albumin Globulin Ratio 1.3 (1.0-2.8); Alkaline Phosphatase 45 U/L (38-126); Blood Urea Nitrogen 14 mg/dL (7-17); Calcium 9.2 mg/dL (8.4-10.2); Carbon Dioxide 26 mmol/L (22-32); Chloride 103 mmol/L (98-107); Estimated Glomerular Filt Rate > 60 mL/min (>60); Globulin 3.2 g/dL (1.7-4.1); Glucose 146 mg/dL (70-99); HEMOLYSIS 83 (0-50); Lipase 89 U/L (23-300); Potassium 4.1 mmol/L (3.4-5.1); Sodium 137 mmol/L (137-145); Total Protein 7.5 g/dL (6.3-8.2)
[2025-09-06 13:03] VITALS: BP 154/77
[2025-09-06 13:04] VITALS: PULSE 56; O2SAT 98
--- NOTE | 2025-09-06 13:05 | ED.ABDPAIN ---
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 She denies dizziness or lightheadedness. She has had nausea with 2 episodes of vomiting. No spinning. She also has the ongoing intermittent epigastric pain but that is not new or worse. Related Data Home Medications ?Medication ?Instructions ?Recorded ?Confirmed losartan 50 mg tablet 50 mg PO DAILY 09/11/18 07/08/25 pantoprazole 40 mg tablet,delayed 40 mg PO DAILY 08/03/21 07/08/25 release cholecalciferol (vitamin D3) 50 50 mcg PO DAILY 04/23/22 07/08/25 mcg (2,000 unit) capsule (Vitamin D3) guar gum 1 packet PO DAILY 04/23/22 07/08/25 levothyroxine 75 mcg tablet 75 mcg PO DAILY 04/23/22 07/08/25 hydrochlorothiazide 12.5 mg tablet mg PO 07/28/24 07/08/25 rosuvastatin 5 mg tablet 5 mg PO DAILY 01/19/25 07/08/25 Previous Rx's ?Medication ?Instructions ?Recorded Glucose: Home Monitor / ##1 12/09/17 Glucose: Test Strips str TID ##100 12/09/17 Lancet: Device u ##100 12/09/17 estradiol 0.01% (0.1 mg/gram) 1 appful vaginal DAILY #42.5 grams 01/31/24 vaginal cream clobetasol 0.05 % topical ointment 1 applic topical BEDTIME #45 grams 10/30/24 Allergies Allergy/AdvReac Type Severity Reaction Status Date / Time amoxicillin (AMOXICILLIN) Allergy Intermediate RASH Verified 07/08/25 10:29 ciprofloxacin (CIPROFLOXACIN) Allergy Intermediate RASH Verified 07/08/25 10:29 codeine (CODEINE) Allergy Intermediate RASH Verified 07/08/25 10:29 vancomycin (VANCOMYCIN) Allergy Intermediate RASH Verified 07/08/25 10:29 ciprofibrate Allergy Unknown Hives Verified 07/08/25 10:29 cortisone Allergy Unknown Hives Verified 07/08/25 10:29 Review of Systems Review of Systems ROS Unobtainable: All systems reviewed & are unremarkable except as noted in HPI and below Gastrointestinal Gastrointestinal: Reports as per HPI Neurologic Neurologic: Reports as per HPI Patient History Medical History (Updated 09/06/25 @ 14:25 by Ziyad Archer MD) Lichen sclerosus Hard of hearing Nocturnal hypoxemia Insomnia Plantar fasciitis Hypothyroidism Lazaro's esophagus Venous thromboembolism (VTE) of lower extremity Trochanteric bursitis Hypertriglyceridemia Osteopenia Type 2 diabetes mellitus Hypertension Breast cancer Surgical History History of knee replacement, total Status post hysterectomy Status post laparoscopic cholecystectomy Social History marital status: unmarried,single household members: none lives independently: Yes occupational status: previously employed Smoking Status: Never smoker alcohol intake: never substance use type: does not use Smoking Status: Never smoker alcohol intake frequency: holidays/special occasions only Exam Narrative Exam Narrative: General: Alert and conversant. No distress. Appears well nourished and well hydrated Craniofacial: No evidence of trauma. Nontender and no swelling. Eyes: PERRLA EOMI conjunctiva clear. No nystagmus. HEENT: Tragus, pinnae nontender. Tympanic membranes normal appearance. Oropharynx clear with no swelling, exudate or asymmetry of the pharynx. Nares clear. No sinus tenderness Neck: No tenderness or adenopathy. No meningismus. No JVD Lungs: Clear to auscultation with good air movement. No wheezing, rales or rhonchi. No respiratory distress Cardiac: Regular rate and rhythm with no appreciable murmur or gallop Abdomen: Soft, nontender with no distention or masses. Normal bowel sounds. No rebound or guarding Musculoskeletal: Exam of the extremities, axial spine and ribcage reveals no deformity, bony tenderness or swelling. Range of motion intact Neuro: Alert and oriented. Cranial nerves, motor, sensory and cerebellar all grossly intact. No focal deficit Skin: Warm and normal color. No rashes Psychological: Normal affect and interaction. No evidence of delusion or psychosis. Normal mood. Initial Vital Signs Initial Vital Signs: Vital Signs Temperature 97.6 F 09/06/25 11:05 Pulse Rate 75 09/06/25 11:05 Respiratory Rate 18 09/06/25 11:05 Blood Pressure 164/77 H 09/06/25 11:05 Pulse Oximetry 99 09/06/25 11:05 Oxygen Delivery Method Room Air 09/06/25 11:05 Course Orders Ordered: ED Orders 09/06/25 11:40 EKG-12 Lead Stat 09/06/25 11:49 Complete Blood Count AUTO DIFF Stat Comprehensive Metabolic Panel Stat Lipase Stat 09/06/25 13:08 Urine Culture Stat Urine Microscopic Stat Ondansetron HCl (Ondansetron 4 Mg/2 Ml Inj) 4 mg IV NOW PRN PRN Reason: Nausea And Vomiting Ondansetron HCl (Ondansetron 4 Mg Odt) 4 mg PO NOW PRN PRN Reason: Nausea And Vomiting Vital Signs Vital signs: Vital Signs - 8 hr 09/06/25 11:05 09/06/25 13:03 09/06/25 13:04 Temperature 97.6 F Pulse Rate 75 56 L Respiratory Rate 18 Blood Pressure 164/77 H 154/77 H Pulse Oximetry 99 98 Oxygen Delivery Method Room Air MDM - Abdominal Pain Lab Data Attestation: I reviewed the patient's lab results. Lab results narrative: CBC and chemistry panel unremarkable 09/06/25 11:49 09/06/25 11:49 Labs: Lab Results 09/06/25 09/06/25 Range/Units 11:49 13:08 WBC 7.0 (4.5-11.0) X10^3/uL RBC 4.68 (4.0-5.2) X10^6/uL Hgb 14.1 (12.0-16.0) g/dL Hct 42.1 (36-46) % MCV 90.1 (80-100) fL MCH 30.1 (26-34) PG MCHC 33.5 (30-36) % RDW 13.8 (11.6-14.8) % Plt Count 208 (150-400) X10^3/uL Neut % (Auto) 69.7 (50-75) % Lymph % (Auto) 21.9 L (25-40) % [place] % (Auto) 5.9 (3-14) % Eos % (Auto) 1.4 L (2-4) % Baso % (Auto) 1.1 (0-2) % Neut # (Auto) 4800 (7265-9258) /uL Lymph # (Auto) 1500 (6934-3956) /uL [place] # (Auto) 400 (0-900) /uL Eos # (Auto) 100 (0-450) /uL Baso # (Auto) 100 (0-100) /uL Sodium 137 (137-145) mmol/L Potassium 4.1 (3.4-5.1) mmol/L Chloride 103 (98-107) mmol/L Carbon Dioxide 26 (22-32) mmol/L BUN 14 (7-17) mg/dL Creatinine 0.89 (0.52-1.04) mg/dL Estimated GFR > 60 (>60) mL/min BUN/Creatinine Ratio 15.7 (6-22) Glucose 146 H (70-99) mg/dL Calcium 9.2 (8.4-10.2) mg/dL Total Bilirubin 1.6 H (0.2-1.3) mg/dL AST 29 (14-36) IU/L ALT 15 (<35) IU/L Alkaline Phosphatase 45 (38-126) U/L Total Protein 7.5 (6.3-8.2) g/dL Albumin 4.3 (3.5-5.0) g/dL Globulin 3.2 (1.7-4.1) g/dL Albumin/Globulin Ratio 1.3 (1.0-2.8) Lipase 89 (23-300) U/L Urine RBC None seen (0-5/HPF) Urine WBC 10-30/hpf H (0-5/HPF) Ur Squamous Epith Cells 1-5 /hpf (0-5/HPF) Urine Bacteria None seen (None) Ur Culture Indicated? Specimen cultured Vol Urine Centrifuged 10ml (spun) Point of care testing: Point of Care Testing Test Results Not applicable Urine Dip Bedside Urine Glucose Negative Bedside Urine Bilirubin - Negative Bedside Urine Ketone - Negative Urine Specific [place] 1.010 Bedside Urine Occult Blood - Negative Bedside Urine pH 6.0 Bedside Urine Protein - Negative Bedside Urine Urobilinogen - Negative Bedside Urine Nitrite - Negative Bedside Urine Leukocytes ++ 125 Esterase ECG Data Attestation: I personally reviewed and interpreted this ECG as follows: (Sinus bradycardia at 55. Incomplete RBBB. Poor R-wave progression.) MDM Narrative Medical decision making narrative: Patient presents with unsteadiness on her legs but able to use her walker to ambulate. She was able to ambulate here well by nursing assessment. Lab work was unremarkable. I believe she does not need further workup for her gait unsteadiness. She has chronic epigastric pain off and on and that has not changed at all. Lab work is unremarkable and reassuring in any case. I do not believe she needs imaging or other workup for her abdominal symptoms and can follow up with her primary care physician for this problem. Discharge Plan Departure Patient Disposition: Home Clinical Impression: Unsteady gait, Abdominal pain, chronic, epigastric Instructions: How to Prevent Falls Activity Restrictions/Additional Instructions: Plan: Use your walker at all times. Monitor symptoms and follow up closely with your provider regarding chronic abdominal pain and unsteadiness. Return to the ER if worse Prescriptions: No Action hydrochlorothiazide 12.5 mg tablet PO Glucose: Home Monitor Qty: 1 0RF Glucose: Test Strips TID Qty: 100 0RF Lancet: Device Qty: 100 0RF clobetasol 0.05 % ointment 1 applic topical BEDTIME Qty: 45 1RF Rx Instructions: apply to the outside of the vagina every night until your itching resolves, then use 2 or 3 nights per week for maintenance estradiol 0.01 % (0.1 mg/gram) cream 1 appful vaginal DAILY Qty: 42.5 3RF Rx Instructions: apply to area of pain and inside the vagina every night for 2 weeks, then every other night for 4 weeks, then twice per week losartan 50 mg Tablet 50 mg PO DAILY guar gum Packet 1 packet PO DAILY levothyroxine 75 mcg tablet 75 mcg PO DAILY cholecalciferol (vitamin D3) [Vitamin D3] 50 mcg (2,000 unit) Capsule 50 mcg PO DAILY pantoprazole 40 mg Tablet,Delayed Release (Dr/Ec) 40 mg PO DAILY rosuvastatin 5 mg tablet 5 mg PO DAILY Referrals: Xin Shultz PA-C [Primary Care Provider, Medical] Stand Alone Forms: Patient Portal/API
[2025-09-06 13:44] LABS: Culture Indicated Urine Specimen Cultured
== END 2025-09-06 14:47 | disposition home or self-care (01) ==
PROVIDERS: Emergency Provider Emergency Medicine; PCP Physician Assistant
DX: R26.81 Unsteadiness on feet (principal); R10.13 Epigastric pain
CPT/HCPCS: 36415; 80053; 81003; 81015; 81025; 83690; 85025; 87077; 87086; 87186; 93005; 99283; 99284

== ENCOUNTER → 2025-09-11 13:06 | Outpatient (CLI) | payer MEDICARE, SELFPAY ==
--- NOTE | 2025-09-11 13:08 | DI.CT.S_ITS ---
PROCEDURE: CT ABDOMEN PELVIS W CON INDICATIONS: Epigastric discomfort TECHNIQUE: After the administration of intravenous contrast, axial sections acquired from the lung bases to the pubic symphysis. Coronal and sagittal reformats were performed. For radiation dose reduction, the following was used: automated exposure control, adjustment of mA and/or kV according to patient size. COMPARISON: [facility], CT, CT ABDOMEN PELVIS W CON, 06/20/2021, 14:32. FINDINGS: Image quality: Diagnostic. Lower Chest: Lung bases are clear. Moderate hiatal hernia. ABDOMEN: Liver: No solid mass. Simple appearing left hepatic lobe cyst. Gallbladder: No radiopaque gallstones or wall thickening. Biliary ducts: No biliary dilation. Pancreas: No ductal dilation. Spleen: Size is within normal limits. Adrenal Glands: No adrenal nodules. Kidneys and Ureters: No hydronephrosis. No solid mass. No complex renal cystic lesion which requires follow up. Simple appearing bilateral renal cysts. Stomach and Bowel: Normal colonic caliber, without significant wall thickening. Diverticulosis without evidence of acute diverticulitis. Peritoneum: No abnormal intraperitoneal fluid. No free air. Ventral Wall: No significant ventral hernia. Abdominal Nodes: No retroperitoneal or mesenteric adenopathy by size criteria. Vessels: Aorta and inferior vena cava are normal in size. Atherosclerotic vascular calcifications. PELVIS: Pelvic Organs: Hysterectomy. Bladder: No bladder wall thickening, accounting for underdistention. Pelvic Nodes: No enlarged lymph nodes. Miscellaneous: No inguinal hernias are seen. Bones: No aggressive osseous abnormality. Degenerative changes of the spine. Mild dextroscoliotic curvature. Decreased osseous mineralization. IMPRESSION: 1. No acute findings within the abdomen or pelvis. 2. Moderate hiatal hernia, may be related to patient's symptoms. 3. Please see above for additional findings. Approved by: Minh Manzanares M.D. on 09/11/2025 at 17:23
== END ==
LOC: CT 13:08
PROVIDERS: PCP Physician Assistant; Referring Provider Physician Assistant; Visit Provider Physician Assistant
DX: K59.00 Constipation, unspecified (principal); K76.89 Other specified diseases of liver; K44.9 Diaphragmatic hernia without obstruction or gangrene; N28.1 Cyst of kidney, acquired; R10.13 Epigastric pain; R14.0 Abdominal distension (gaseous); Z90.710 Acquired absence of both cervix and uterus
CPT/HCPCS: 74177; Q9967